=== PATIENT | male | born 1975 | race African-American/Black ===

== ENCOUNTER 2021-02-06 17:45 | Emergency (ER) | payer OTHER, SELFPAY ==
--- NOTE | ~2021-02-06 | CT_ITS ---
EXAMINATION: CT orbit BI wo con DATE: 02/06/2021 20:38 INDICATION: Right eye redness and burning TECHNIQUE: Computed tomography (CT) of the orbits was performed without intravenous contrast. The dos e-length product (DLP) was 115.76 mGy-cm. Automated exposure control and iterative reconstruction winifred hnique were employed. COMPARISON: None. FINDINGS: The globes and orbits are normal. No radiopaque foreign body is identified. No orbital frac ture identified. IMPRESSION: 1. No CT correlate for the patient's symptoms. Reviewed, dictated and finalized at location A.
[2021-02-06 17:49] VITALS: BP 161/118; PULSE 91; RESP 18; TEMP 36.9; O2SAT 100
--- NOTE | 2021-02-06 17:53 | PC.NURSE ---
Pt was placed on ofloxacin by urgent care
[2021-02-06] MEDS: TETRACAINE HCL 0.5% OPHTH SOLN 4 ML BTL 1 DROP (19:48)
[2021-02-06] MEDS: FLUORESCEIN SOD 1 MG/STRIP (19:48)
[2021-02-06] MEDS: DACRIOSE EYE IRRIGATION 118 ML BOTTLE (19:48)
--- NOTE | 2021-02-06 20:40 | ED.EYEPROB ---
HPI - Eye Problem General Chief complaint: Eye Problems Stated complaint: RT EYE PAINFUL, HENSON, DRAINAGE Time Seen by Provider: 02/06/21 19:06 History of Present Illness HPI Narrative: Patient presents with eye pain. Patient reports he was he constructing something with a sledgehammer when a piece of unknown substance broke off and struck him in his right eye. Been occurred approximately 1 week ago was seen in urgent care and exam as I was told everything was okay and discharged home on antibiotic eyedrops. Reports his eye continues to bother him and appears pleurisy letter to come back in for repeat evaluation. Reports his pain is constant, achy, worse with bright lights and with looking around. Denies fevers, cough, congestion, loss of visual malloy Related Data Allergies Allergy/AdvReac Type Severity Reaction Status Date / Time acetaminophen AdvReac Intermediate Other Verified 02/06/21 18:33 Review of Systems Review of Systems: CONSTITUTIONAL: Denies fever, chills, or sweats. EYES: Reports redness, clear drainage, blurred vision on the right ENT: Denies rhinorrhea, congestion, sore throat, or otalgia. CARDIOVASCULAR: Denies chest pain, palpitations, or edema. RESPIRATORY: Denies cough or dyspnea. GASTROINTESTINAL: Denies abdominal pain, nausea, vomiting, or diarrhea. GENITOURINARY: Denies dysuria or hematuria. SKIN: Denies rash or itching. MUSCULOSKELETAL: Denies back pain, joint pain, or myalgia. NEUROLOGIC: Denies headache, numbness, dizziness, or weakness. PSYCHIATRIC: Denies anxiety or depression. All systems reviewed & are unremarkable except as noted in HPI and below Exam Narrative: GENERAL: Well-appearing, well-nourished, and in no acute distress. HEAD: Normocephalic, atraumatic. EYES: PERRLA and EOMI without pain. diffuse conjunctival injection on the right anterior chamber is quiet mild direct photophobia no consensual photophobia. Mild tenderness palpation of the bony orbits no obvious deformity no open or draining wounds. Visual acuities reviewed in nursing chart. No fluorescein uptake no Janie's ENT: Nares clear, no rhinorrhea or epistaxis. Mucous membranes moist. NECK: Supple. No masses. No JVD CHEST: Clear to auscultation. No respiratory distress. No wheezes rales or rhonchi SKIN: Warm, dry, no rash. NEURO: No focal deficits. Alert and oriented x3. PSYCH: Normal mood and affect. Course Reevaluation(s) Reevaluation #1: Patient ports feeling improved results and plan reviewed with patient. Patient comfortable with outpatient plan. Date: 02/06/21 Time: 21:01 Vital Signs Vital signs: Vital Signs Temperature 36.9 C 02/06/21 17:49 Pulse Rate 91 02/06/21 17:49 Respiratory Rate 18 02/06/21 17:49 Blood Pressure 161/118 H 02/06/21 17:49 Pulse Oximetry 100 02/06/21 17:49 Temperature 36.9 C 02/06/21 17:49 Pulse Rate 91 02/06/21 17:49 Respiratory Rate 18 02/06/21 17:49 Blood Pressure 161/118 H 02/06/21 17:49 Pulse Oximetry 100 02/06/21 17:49 MDM - Eye Problem MDM Narrative Medical decision making narrative: H&P as above, vss, pt looks clinically well, exam diffuse conjunctival injection and clear drainage, mild improvement with Alcaine no fluorescein uptake, img unremarkable, additional labs/img considered, symptomatic relief available as needed, on reevaluation pt continues to looks clinically well. Patient may have a mild traumatic iritis however there is no consensual photophobia. Symptoms may represent healing abrasion as patient had some improvement with topical anesthetic. there is low concern for fracture, open globe, retrobulbar process. With negative work-up plan to tx/monitor as op w/ pcm/ophthalmology f/u findings/plan discussed with pt, pt agree/comfortable with plan, return precautions given Discharge Plan Discharge Clinical Impression: Acute eye pain Conjunctival injection Qualifiers: Laterality: right Qualified Code(s): H11.431 - Conjunctival hyperemi
--- NOTE | 2021-02-06 21:28 | PC.NURSE ---
rn went to discharge pt and noted a high blood pressure of 157/114. rn spoke with dr tejeda who gave a vrbo for clonidine 0.1mg and to hold pt and repeat bp in 30-45 min.
[2021-02-06] MEDS: cloNIDine HCL 0.1 MG TABLET PO (21:59)
[2021-02-06 22:00] VITALS: BP 161/121
[2021-02-06 22:48] VITALS: BP 140/70
[2021-02-06 22:49] VITALS: BP 140/70; PULSE 70; RESP 18; O2SAT 100
== END 2021-02-06 22:55 | disposition home or self-care (01) ==
PROVIDERS: Emergency Provider Emergency Medicine; PCP Internal Medicine
DX: H11.431 Conjunctival hyperemia, right eye (principal)
CPT/HCPCS: 70480; 99284; A9270

== ENCOUNTER 2021-03-24 10:15 | Emergency (ER) | payer OTHER, SELFPAY ==
[2021-03-24] VITALS (9 sets, daily range): BP systolic 140–147; BP diastolic 85–104; PULSE 93–111; RESP 18–22; TEMP 37.3–39.4; O2SAT 97–98
--- NOTE | ~2021-03-24 | XR_ITS ---
EXAMINATION: XR chest 1V portable INDICATION: Tachycardia and cough TECHNIQUE: Portable AP chest at 1326 hours COMPARISON: None available FINDINGS: There are patchy opacities of the lung bases, left greater than right. No pleural effusion or pneumothorax is identified. The cardiomediastinal silhouette is normal. IMPRESSION: 1. Patchy bibasilar airspace opacities, left greater than right, likely pneumonia. Reviewed, dictated and finalized at location A. CENTER SUPPORT REPRESENTATIVE IMPRESSION: 1. Patchy bibasilar airspace opacities, left greater than right, likely pneumon ia.
--- NOTE | 2021-03-24 12:04 | ED.GENADULT ---
HPI - General Adult General Chief complaint: Upper Respiratory Infection Stated complaint: chills, st Time Seen by Provider: 03/24/21 11:47 Source: patient Mode of arrival: ambulatory Limitations: no limitations History of Present Illness HPI narrative: Patient presents for evaluation of sore throat since yesterday. He indicates he woke from sleep with the symptoms. He states he slept with his windows open the night prior. He believes this was the cause of his symptoms. He has experienced fever and chills but denies any chest pain, shortness of breath, abdominal pain. He has an occasional productive cough of yellow sputum and some nausea particularly when he eats. He has tried cepacol without much improvement in his symptoms. No recent sick contacts. He does not smoke. He has not received a flu shot. He has also not received a Covid vaccine. No personal hx of COVID. No additional complaints or concerns. Related Data Allergies Allergy/AdvReac Type Severity Reaction Status Date / Time acetaminophen AdvReac Intermediate Other Verified 03/24/21 12:01 Review of Systems Review of Systems: CONSTITUTIONAL: Reports fever and chills EYES: Denies visual changes, redness, or discharge. ENT: Reports sore throat. Denies rhinorrhea, congestion, or otalgia. CARDIOVASCULAR: Denies chest pain, palpitations, or edema. RESPIRATORY: Denies cough or dyspnea. GASTROINTESTINAL: Denies abdominal pain, nausea, vomiting, or diarrhea. GENITOURINARY: Denies dysuria or hematuria. SKIN: Denies rash or itching. MUSCULOSKELETAL: Denies back pain, joint pain, or myalgia. NEUROLOGIC: Denies headache, numbness, dizziness, or weakness. PSYCHIATRIC: Denies anxiety or depression. FORMERLY [facility] Past Medical History Medical History (Updated 03/24/21 @ 16:01 by David Sauer, SIRISHA, ) No pertinent past medical history Surgical History Surgical History No pertinent past surgical history Family History Family History Mother Polysubstance abuse Social History Social History Smoking status: Never smoker Alcohol intake: never Substance use: never Living arrangements: with family Gender identity (if verbalized by the patient): Male Sexual Orientation (if Verbalized by the Patient): Straight or Heterosexual Spiritual care concerns: No Exam Narrative: GENERAL: Well-appearing, well-nourished, and in no acute distress. HEAD: Normocephalic, atraumatic. EYES: PERRLA and EOMI. ENT: Nares clear, no rhinorrhea or epistaxis. Mucous membranes moist. Bilateral tonsillar enlargement with erythema but no exudate. Uvula is midline. Bilateral TMs pearly rubio nonbulging NECK: Supple. No adenopathy or masses. No carotid bruits or JVD CHEST: Clear to auscultation. No respiratory distress. No wheezes rales or rhonchi HEART: Rate 105. Normal rhythm. No murmur heard. Normal peripheral pulses. ABDOMEN: Soft, nontender, nondistended, normal active bowel sounds. EXTREMITIES: Normal range of motion. No edema. SKIN: Warm, dry, no rash. NEURO: No focal deficits. Alert and oriented x3. PSYCH: Normal mood and affect. Course Course Emergency Course: This is a 45-year-old male who presented with complaints of sore throat and productive cough of yellow sputum. He has some tonsillar swelling and erythema. Strep was negative. CXR consistent with pneumonia versus atelectasis. Patient was hydrated. He was given ibuprofen for fever. Decadron was ordered to assist with sore throat. He was started on Rocephin and azithromycin. Heart rate normalized with hydration. O2 sats remained within normal range. This could be a bacterial pneumonia versus Covid. Covid swab was obtained. On reassessment, patient indicated that he felt well enough to go home. He should follow-up outpatient for further e
[2021-03-24] MEDS: IBUPROFEN 400 MG TABLET 800 MG PO (12:13)
--- NOTE | 2021-03-24 13:12 | ECG_ITS ---
Measurements Intervals [place] Rate: 90 P: 57 [place]: 155 QRS: 30 QRSD: 102 T: 6 QT: 373 QTc: 458 Interpretive Statements SINUS RHYTHM NORMAL ECG Electronically Signed On 03-24-2021 20:07:52 [employer] by Tarik Fuentes D.O.
[2021-03-24 13:49] LABS: Basophils Percent Auto 0.4 % (0.2-1.2); Eosinophils Absolute Auto 0.1 K/mm3 (0-0.3); Eosinophils Percent Auto 0.5 % (0-4.4); Hematocrit 42.8 % (42.0-52.0); Hemoglobin 14.5 g/dL (14.0-18.0); Immature Granulocyte Absolute 0.04 K/mm3 (0.00-0.031); Immature Granulocyte Percent A 0.4 % (0-0.5); Lymphocytes Absolute Auto 1.66 K/mm3 (0.9-3.2); Lymphocytes Percent Auto 17.1 % (18.3-44.2); Mean Corpuscular HGB Conc 33.9 g/dl (32-36); Mean Corpuscular Hemoglobin 29.5 pg (26-34); Mean Platelet Volume 9.6 fl (7.4-10.4); Monocytes Absolute Auto 0.8 K/mm3 (0.1-0.6); Monocytes Percent Auto 8.2 % (2.6-8.5); Neutrophils Absolute Auto 7.1 K/mm3 (1.3-6.7); Neutrophils Percent Auto 73.4 % (45.5-73.1); Platelet Count Result 234 k/mm3 (150-375); Red Blood Count 4.92 M/mm3 (4.6-6.20); Red Cell Distribution Width 13.3 % (11.5-14.5); White Blood Count 9.7 K/mm3 (4.5-10.0)
[2021-03-24 13:59] LABS: Lactic Acid Reflex 1.3 mmol/L (0.7-2.1)
[2021-03-24 14:00] LABS: Alanine Aminotransferase 29 U/L (4-50); Albumin Level 4.5 g/dL (3.5-5.1); Alkaline Phosphatase 76 U/L (38-126); Anion Gap 8 mmol/L (8-16); Aspartate Amino Transferase 29 U/L (17-59); Bilirubin,Total 0.5 mg/dL (0.2-1.3); Blood Urea Nitrogen 10 mg/dL (9-20); Calcium 9.2 mg/dL (8.4-10.2); Carbon Dioxide 26 mmol/L (22-30); Chloride 104 mmol/L (98-107); Estimated CRCL calculation 90 ml/min; Estimated Glomerular Filt Rate > 60; Glucose 123 mg/dL (65-110); Potassium 4.1 mmol/L (3.4-5.0); Sodium 138 mmol/L (137-145)
[2021-03-24 14:03] LABS: Prothrombin Time 13.4 Seconds (11.1-14.7)
[2021-03-24 14:04] LABS: Partial Thromboplastin Time 26.4 SECONDS (22.3-36.8)
[2021-03-24 14:06] LABS: D Dimer 0.33 ug/mL (<0.48)
[2021-03-24 14:11] LABS: Troponin I < 0.012 ng/mL (0.000-0.034)
[2021-03-24] MEDS: SODIUM CHLORIDE 0.9% IV 1,000 ML 999 ML IV CONT (14:42)
[2021-03-24 14:44] LABS: Add Urine Microscopic? YES; Appearance Urine Clear (Clear); Bilirubin Urine Negative (Negative); Blood Urine 1+ (Negative); Color Urine Yellow (Yellow); Glucose Urine UA Negative (Negative); Ketones Urine Negative (Negative); Leukocyte Esterase Ur Negative LEU/UL (Negative); Mucus Urine Rare /lpf; Nitrate Urine Negative (Negative); Protein Urine Negative (Negative); Specific Grav Ur 1.019 (1.001-1.035); Urobilinogen Urine Negative mg/dL (<2.0); WBC Urine 0-3 /hpf
[2021-03-24 16:46] LABS: Troponin I < 0.012 ng/mL (0.000-0.034)
[2021-03-25 18:23] LABS: SARS-CoV-2 RNA PCR Negative
--- NOTE | 2021-04-01 13:25 | PC.NURSE ---
LATE ENTRY This note is being entered to document information to the patient's record. The following information was omitted on [03/24/21], by [Dayana Lennon]. Azithromycin infused at 1625, 250ml.
== END 2021-03-24 16:30 | disposition home or self-care (01) ==
PROVIDERS: Emergency Provider Nurse Practitioner; PCP Internal Medicine
DX: J18.9 Pneumonia, unspecified organism (principal); Z20.822 Contact with and (suspected) exposure to COVID-19
CPT/HCPCS: 36415; 71045; 80053; 81001; 83605; 84484; 85025; 85380; 85610; 85730; 87081; 87804; 87880; 93005; 96360; 96365; 99284; A9270; C9803; J0456; J0696; J1100; J1170; J7030; U0003; U0005

== ENCOUNTER 2021-05-25 20:17 | Emergency (ER) | payer OTHER, SELFPAY ==
[2021-05-25 20:25] VITALS: BP 137/85; PULSE 94; RESP 16; TEMP 37.9; O2SAT 99
--- NOTE | 2021-05-25 22:51 | PC.NURSE ---
This RN went to waiting room to take new set of vital signs on pt and he was not in the waiting room at this time. Unsure if pt left or just stepped outside.
== END 2021-05-25 20:25 | disposition left against medical advice (07) ==
LOC: ANHED 23:07
PROVIDERS: PCP Internal Medicine
DX: R50.9 Fever, unspecified (principal)
CPT/HCPCS: 99199

== ENCOUNTER 2024-06-21 18:10 | Emergency (ER) | payer OTHER, SELFPAY ==
--- NOTE | ~2024-06-21 | XR_ITS ---
HISTORY: right shoulder pain COMPARISON: None TECHNIQUE: 4 views of the right shoulder were performed FINDINGS: No acute fracture. The glenohumeral and acromioclavicular joint space is maintained The visualized portion of the adjacent right lung is clear. The humeral head is well seated within the glenoid fossa. IMPRESSION: No acute fracture or anterior dislocation. Reviewed, dictated and finalized at location A. H PAINTER
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
[2024-06-21 18:21] VITALS: BP 114/87; PULSE 95; RESP 16; TEMP 37.7; O2SAT 99
[2024-06-21 18:47] LABS: EDCOVIDSCREEN Negative (Negative); EDINFLUASCREEN Negative (Negative); EDINFLUBSCREEN Negative (Negative)
== END 2024-06-21 19:01 | disposition home or self-care (01) ==
PROVIDERS: Emergency Provider Nurse Practitioner
DX: S43.401A Unspecified sprain of right shoulder joint, initial encounter (principal); W19.XXXA Unspecified fall, initial encounter; J01.90 Acute sinusitis, unspecified; Z20.822 Contact with and (suspected) exposure to COVID-19
CPT/HCPCS: 73030; 87426; 87804; 99213; A4565; G0463

== ENCOUNTER 2024-07-12 11:43 | Outpatient (CLI) | payer OTHER, SELFPAY ==
--- NOTE | ~2024-07-12 | XR_ITS ---
EXAMINATION: XR fl inj shoulder RT - MR/CT DATE: 07/12/2024 12:29 INDICATION: Unspecified injury of right shoulder. TECHNIQUE: A time-out was performed to verify the patient's name, date of , and procedure to b e performed. The procedure including the risks, benefits, and alternatives was discussed with the pat ient. Risks discussed included bleeding and infection. The patient understood the risks and agreed to proceed. The skin overlying the right glenohumeral joint was prepped and draped in usual sterile fas hion. Anesthetic was administered with 1% lidocaine subcutaneously. A 22 G needle was advanced unde r fluoroscopic guidance into the joint. Subsequently, injectate consisting of 12 mL of 1:4 1% lidoca ine and 1:2 Omnipaque 240 was instilled. The needle was removed and the entry site was cleaned and d ressed. There were no immediate complications. Fluoroscopy exposure time was 0.1 minutes. The total number of images was 2. FINDINGS: Real-time fluoroscopy demonstrates the needle and contrast in the right glenohumeral joint. IMPRESSION: 1. Successful right glenohumeral joint injection of contrast for subsequent CT arthrography. Reviewed, dictated and finalized at location A. ITUTIONAL NUTRITION CONSULTANT
--- NOTE | ~2024-07-12 | CT_ITS ---
EXAMINATION: CT shoulder RT w con DATE: 07/12/2024 12:27 INDICATION: Unspecified injury of right shoulder. TECHNIQUE: Computed tomography (CT) of the right shoulder was performed without intravenous contrast after intra-articular injection of contrast from (CT arthrogram). Automated exposure control and iter ative reconstruction technique were employed. The dose-length product was 446.09 mGy-cm. COMPARISON: Right shoulder radiographs 06/21/2024 FINDINGS: Alignment is normal. No fracture. There is severe acromioclavicular joint osteoarthritis. T he glenoid cartilage is normal. Humeral head cartilage is normal. Intra-articular biceps tendon is un remarkable. The glenoid labrum is intact. There is a large full-thickness tear of subscapularis tendo n with large communication of contrast between the joint and the subacromial/subdeltoid bursa. The roth praspinatus, infraspinatus, and teres minor tendons are intact. There is no asymmetric fatty atrophy of the rotator cuff muscle bellies. IMPRESSION: 1. Large full-thickness tear of subscapularis tendon. 2. Severe acromioclavicular joint osteoarthritis. Reviewed, dictated and finalized at location A. [facility] REFEREE
--- OUTSIDE RECORDS SUMMARY | 2024-07-12 13:39 | XMS_ITS | Referral Summary ---
Author Organization [facility] Address [address] [place] [address] Care Team Providers Care Director Of Vital Statistics Name Role Phone Unknown, Provider Primary Care Provider Unavaila ble Source Comments [facility],non-owned Affiliates and Associated Physician Practices is amultiple site organization consisting of ambulatory clinics and hospital sitesin [place], [place], [place] and [place]. This disclosure is being madepursuant to the Care Everywhere program and may not contain all information available regarding this patient. Last updated 18.[facility] Encounters Date Type Department Care Team Description 05/31/2024 Travel 05/31/2024 3:54 PM DISTILLATION OPERATOR HELPER - 05/31/2024 7:23 PM [facility] Emergency [facility] [address] [place] [id number] Discharge Disposition: Left Against Medical Advice/Discontinued Care from Last 3 Months Allergies Active Allergy Reactions Criticality Noted Date Comments Acetaminophen Rash Medium Propoxyphene N-Apap Other Low 01/28/2017 Face shrinking Shellfish Allergy Nausea and/or Vomiting Low 2016 Medications * Be aware that medications may not be up to date on this document. Alwaysverify current medications with the patient. Medication Sig Dispensed Refills Start Date End Date Status cetirizine (ZYRTEC ALLERGY) 10 MG tabletIndications:Pru ritus of groin in male Take 10-20 mg twice per day. 30 day supply 60 tablet 2 03/02/2018 Active tacrolimus (PROTOPIC) 0.1 % ointmentIndications:P ruritus of groin in male Apply to itchy areas of the groin BID. 30 days supply 60 g 3 03/02/2018 Active triamcinolone acetonide (KENALOG) 0.1 % ointmentIndications:P ruritus of groin in male Apply to itchy groin twice daily. 30 days supply. 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 Social History Tobacco Use Types Packs/Day Years Used Date Smoking Tobacco: Former Smokeless Tobacco: Never Alcohol Use Standard Drinks/Week Comments No 0 (1 standard drink = 0.6 oz pur e alcohol) Sex and Gender Information Value Date Recorded Sex Assigned at Not on file Gender Identity Not on file Sexual Orientation Not on file Last Filed Vital Signs Vital Sign Reading Time Taken Comments Blood Pressure 115/86 05/31/2024 12:03 PM DISTILLATION OPERATOR HELPER Pulse 110 05/31/2024 12:03 PM DISTILLATION OPERATOR HELPER Temperature 37.6 C (99.6 F) 05/31/2024 12:03 PM DISTILLATION OPERATOR HELPER Respiratory Rate 19 05/31/2024 12:03 PM DISTILLATION OPERATOR HELPER Oxygen Saturation 99% 05/31/2024 12:03 PM DISTILLATION OPERATOR HELPER Inhaled Oxygen Concentration - - Weight 56.7 kg (125 lb) 05/31/2024 12:03 PM DISTILLATION OPERATOR HELPER Height 180.3 cm (5' 11) 05/31/2024 12:03 PM DISTILLATION OPERATOR HELPER Body Mass Index 17.43 05/31/2024 12:03 PM DISTILLATION OPERATOR HELPER Plan of Treatment Not on file Procedures Procedure Name Priority Date/Time Associated Diagnosis Comments CULTURE STREP GROUP A Routine 05/31/2024 12:46 PM DISTILLATION OPERATOR HELPER STREP A SCREEN DIRECT W RFLX STREP A CULTURE STAT 05/31/2024 12:46 PM DISTILLATION OPERATOR HELPER SARS-COV-2 (COVID-19) FLU A/B RSV PCR RAPID STAT 05/31/2024 12:46 PM DISTILLATION OPERATOR HELPER from Last 3 Months Results * SARS-COV-2 (COVID-19) FLU A/B RSV PCR RAPID (05/31/2024 12:46 PM DISTILLATION OPERATOR HELPER) COVID-19 PCR Not detected Not detected 05/31/19 25 1:28 PM DISTILLATION OPERATOR HELPER [facility] Influenza A PCR Not detected Not detected 05/31/2024 1:28 PM [facility] Influenza B PCR Not detected Not detected 05/31/2024 1:28 PM [facility] RSV PCR Not detected Not detected 05/31/2024 1:28 PM [facility] Microbiology SPECIMEN FROM NASOPHARYNGEAL STRUCTURE / Unknown Collection / Unknown 05/31/2024 12:46 PM DISTILLATION OPERATOR HELPER 05/31/2024 12:49 PM DISTILLATION OPERATOR HELPER [facility] - 05/31/2024 1:28 PM DISTILLATION OPERATOR HELPER This nucleic acid amplification assay has been authorized by the Food and Drug administration (FDA) under an Emergency Use Authorization (EUA). This test is only authorized for the duration of time the declaration that circumstances exist justifying the authorization of emergency use of in vitro diagnostic tests for detection of SARS-CoV-2 virus and/or diagnosis of COVID-19 infection under section 564(b)(1) of the Act, 21 U.S.C 360bbb-3 (b)(1), unless the authorization is terminated or revoked sooner. Fact Sheets for this EUA assay are available upon request. Yelitza [employer]OVER[employer] ORDERABLES [address] [address], [facility] [phone] * STREP A SCREEN DIRECT W RFLX STREP A CULTURE (05/31/2024 12:46 PM DISTILLATION OPERATOR HELPER) [facility] Rapid Strep A Screen Negative Negative 05/31/2024 1:01 PM [facility] Microbiology ENTIRE THROAT (SURFACE REGION OF NECK) / Unknown Collection / Unknown 05/31/2024 12:46 PM DISTILLATION OPERATOR HELPER 05/31/2024 12:49 PM DISTILLATION OPERATOR HELPER [facility] - 05/31/2024 1:01 PM DISTILLATION OPERATOR HELPER Rapid test for Group A Beta Streptococcus is NEGATIVE. A Negative, Direct Test for Group A Streptococcus will be followed with a confirmatory Throat Culture when 2 swabs have been submitted. Yelitza GOMEZ-C LAB - MICROBI OLOGY ORDERABLES [facility] [address] [place] [address], [facility] [phone] * CULTURE STREP GROUP A (05/31/2024 12:46 PM DISTILLATION OPERATOR HELPER) Culture Negative for beta-hemolytic Streptococcus Group A AFSHAN 2024 5:25 PM DISTILLATION OPERATOR HELPER [facility] Microbiology ENTIRE THROAT (SURFACE REGION OF NECK) / Unknown Collection / Unknown 05/31/2024 12:46 PM DISTILLATION OPERATOR HELPER 05/31/2024 12:49 PM DISTILLATION OPERATOR HELPER Yelitza Stroud PA-C LAB - MICROBI OLOGY ORDERABLES [facility] [address] [place] [address], [facility] [phone] from Last 3 Months Care Teams Director Of Vital Statistics Relationship Specialty Start Date End Date Unknown, Provider PCP - General 11/04/17
--- OUTSIDE RECORDS SUMMARY | 2024-07-12 13:39 | XMS_ITS | Clinical Summary ---
Author Organization [facility] Address [address] [place] [address] Care Team Providers Care Loading And Unloading Supervisor Name Role Phone Unknown, Provider Primary Care Provider Unavaila ble Source Comments [facility],non-owned Affiliates and Associated Physician Practices is amultiple site organization consisting of ambulatory clinics and hospital sitesin [place], [place], [place] and [place]. This disclosure is being madepursuant to the Care Everywhere program and may not contain all information available regarding this patient. 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 Encounters Date Type Department Care Team Description 05/31/2024 3:54 PM FAMILY NURSE PRACTITIONER - 05/31/2024 7:23 PM FAMILY NURSE PRACTITIONER Emergency [facility] EMERGENCY DEPART[facility] [address] [place] [address] Discharge Disposition: Left Against Medical Advice/Discontinued Care 05/31/2024 Travel from Last 3 Months Family History Medical History Relation Name Comments Asthma Neg Hx CVA Neg Hx Cancer - Breast Neg Hx Cancer - Other Neg Hx Cancer - Skin, Melanoma Neg Hx Cancer - Skin, Non Melanoma Neg Hx Eczema Neg Hx Hemophilia Neg Hx Psoriasis Neg Hx Social History Tobacco Use Types Packs/Day Years [...] Comments Blood Pressure 115/86 05/31/2024 12:03 PM FAMILY NURSE PRACTITIONER Pulse 110 05/31/2024 12:03 PM FAMILY NURSE PRACTITIONER Temperature 37.6 C (99.6 F) 05/31/2024 12:03 PM FAMILY NURSE PRACTITIONER Respiratory Rate 19 05/31/2024 12:03 PM FAMILY NURSE PRACTITIONER Oxygen Saturation 99% 05/31/2024 12:03 PM FAMILY NURSE PRACTITIONER Inhaled Oxygen Concentration - - Weight 56.7 kg (125 lb) 05/31/2024 12:03 PM FAMILY NURSE PRACTITIONER Height 180.3 cm (5' 11) 05/31/2024 12:03 PM FAMILY NURSE PRACTITIONER Body Mass Index 17.43 05/31/2024 12:03 PM FAMILY NURSE PRACTITIONER Plan of Treatment Health Maintenance Due Date Last Done Comments COLON MONITORING 1975 COLONOSCOPY - COLON CA SCREENING 1975 CT COLONOGRAPHY - COLON CA SCREENING 1975 FIT - COLON CA SCREENING 1975 FLEX SIG - COLON CA SCREENING 1975 LIPID TESTING 1975 HIV SCREENING 1990 HEPATITIS C SCREENING 05/27/1993 DTAP/TDAP/TD VACCINES (1 - Tdap) 1994 HEPATITIS B VACCINE (1 of 3 - 19+ 3-dose series) 1994 COVID-19 VACCINE (2023-2 5 season) 2024 INFLUENZA VACCINE (#1) 2024 DEPRESSION SCREENING 05/11/2024 ZOSTER VACCINE (1 of 2) 2025 COLOGUARD (AGES 45-75) - COL ON CA SCREENING 12/15/2025 12/15/2022 Colorectal Cancer Screening 12/15/2025 HIB VACCINE Aged Out No longer eligi ble based on patient's age to complete this topic HPV VACCINE Aged Out No longer eligi ble based on patient's age to complete this topic MENINGOCOCCAL (Group B) VACCINE Aged Out No longer eligible based on patient's age to complete this topic MENINGOCOCCAL VACCINE Aged Out No roseann lucy eligible based on patient's age to complete this topic Procedures Procedure Name Priority Date/Time Associated Diagnosis Comments CULTURE STREP GROUP A Routine 05/31/2024 12:46 PM FAMILY NURSE PRACTITIONER STREP A SCREEN DIRECT W RFLX STREP A CULTURE STAT 05/31/2024 12:46 PM FAMILY NURSE PRACTITIONER SARS-COV-2 (COVID-19) FLU A/B RSV PCR RAPID STAT 05/31/2024 12:46 PM FAMILY NURSE PRACTITIONER from Last 3 Months Results * SARS-COV-2 (COVID-19) FLU A/B RSV PCR RAPID (05/31/2024 12:46 PM FAMILY NURSE PRACTITIONER) COVID-19 PCR Not detected Not detected 05/31/19 25 1:28 PM [facility] Influenza A PCR Not detected Not detected 05/31/2024 1:28 PM [facility] Influenza B PCR Not detected Not detected 05/31/2024 1:28 PM [facility] RSV PCR Not detected Not detected 05/31/2024 1:28 PM [facility] Microbiology SPECIMEN FROM NASOPHARYNGEAL STRUCTURE / Unknown Collection / Unknown 05/31/2024 12:46 PM FAMILY NURSE PRACTITIONER 05/31/2024 12:49 PM FAMILY NURSE PRACTITIONER [facility] - 05/31/2024 1:28 PM FAMILY NURSE PRACTITIONER This nucleic acid amplification assay has been [...] EUA assay are available upon request. Yelitza Alexander [employer] LAB - MoglueY ORDERABLES Performing Organization Address City/[facility]/ZIP Co de Phone Number [address] [address], [facility] [phone] * STREP A SCREEN DIRECT W RFLX STREP A CULTURE (05/31/2024 12:46 PM FAMILY NURSE PRACTITIONER) Rapid Strep A Screen Negative Negative 05/31/2024 1:01 PM FAMILY NURSE PRACTITIONER [facility] Microbiology ENTIRE THROAT (SURFACE REGION OF NECK) / Unknown Collection / Unknown 05/31/2024 12:46 PM FAMILY NURSE PRACTITIONER 05/31/2024 12:49 PM FAMILY NURSE PRACTITIONER Narrative [facility] - 05/31/2024 1:01 PM FAMILY NURSE PRACTITIONER Rapid test for Group A Beta Streptococcus is NEGATIVE. A Negative, Direct Test for Group A Streptococcus will be followed with a confirmatory Throat Culture when 2 swabs have been submitted. [employer]el[employer]zaLivestreamCatherinei[email or web address] ORDERABLES Performing Organization Address [facility] Co de Phone Number [address] [address], [facility] [phone] * CULTURE STREP GROUP A (05/31/2024 12:46 PM FAMILY NURSE PRACTITIONER) Culture Negative for beta-hemolytic Streptococcus Group A AFSHAN 2024 5:25 PM FAMILY NURSE PRACTITIONER [facility] Microbiology ENTIRE THROAT (SURFACE REGION OF NECK) / Unknown Collection / Unknown 05/31/2024 12:46 PM FAMILY NURSE PRACTITIONER 05/31/2024 12:49 PM FAMILY NURSE PRACTITIONER Yelitza [employer] LAB - MICROBI OLOGY ORDERABLES [facility] [address] [place] [address], [facility] [phone] from Last 3 Months Care Teams Loading And Unloading Supervisor Relationship Specialty Start Date End Date Unknown, Provider PCP - General 11/04/17
--- OUTSIDE RECORDS SUMMARY | 2024-07-12 13:39 | XMS_ITS | Patient Health Summary ---
Author Organization [facility] Address [address] [place] [address] Care Team Providers Care Beach Expert Name Role Phone Unknown, Provider Primary Care Provider Unavaila ble Note from [facility],non-owned Affiliates and Associated Physician Practices is amultiple site organization consisting of ambulatory clinics and hospital sitesin [place], [place], [place] and [place]. This disclosure is being madepursuant to the Care Everywhere program and may not contain all information available regarding this patient. Last updated 18.[facility] Allergies * Acetaminophen(Rash) -Medium Criticality * Propoxyphene N-Apap(Other) -Low Criticality * Shellfish Allergy(Nausea and/or Vomiting) -Low Criticality Medications * Be aware that medications may not be up to date on this document. Alwaysverify current medications with the patient. * cetirizine (ZYRTEC ALLERGY) 10 MG tablet(Started 03/02/2018) Take 10-20 mg twice per day. 30 day supply 2 refills remaining * tacrolimus (PROTOPIC) 0.1 % ointment(Started 03/02/2018) Apply to itchy areas of the groin BID. 30 days supply 3 refills remaining * triamcinolone acetonide (KENALOG) 0.1 % ointment(Started 03/02/2018) Apply to itchy groin twice daily. 30 days supply. Active Problems Problem Noted Date Diagnosed Date [...] Comments Blood Pressure 115/86 05/31/2024 12:03 PM MANAGER METAL Pulse 110 05/31/2024 12:03 PM MANAGER METAL Temperature 37.6 C (99.6 F) 05/31/2024 12:03 PM MANAGER METAL Respiratory Rate 19 05/31/2024 12:03 PM MANAGER METAL Oxygen Saturation 99% 05/31/2024 12:03 PM MANAGER METAL Inhaled Oxygen Concentration - - Weight 56.7 kg (125 lb) 05/31/2024 12:03 PM MANAGER METAL Height 180.3 cm (5' 11) 05/31/2024 12:03 PM MANAGER METAL Body Mass Index 17.43 05/31/2024 12:03 PM MANAGER METAL Procedures * CULTURE STREP GROUP A(Performed 05/31/2024) * STREP A SCREEN DIRECT W RFLX STREP A CULTURE(Performed 05/31/2024) * SARS-COV-2 (COVID-19) FLU A/B RSV PCR RAPID(Performed 05/31/2024) Results * SARS-COV-2 (COVID-19) FLU A/B RSV PCR RAPID (05/31/2024 12:46 PM MANAGER METAL) COVID-19 PCR Not detected Not detected 05/31/19 1:28 PM [facility] Influenza A PCR Not detected Not detected 05/31/2024 1:28 PM [facility] Influenza B PCR Not detected Not detected 05/31/2024 1:28 PM [facility] RSV PCR Not detected Not detected 05/31/2024 1:28 PM [facility] Microbiology SPECIMEN FROM NASOPHARYNGEAL STRUCTURE / Unknown Collection / Unknown 05/31/2024 12:46 PM MANAGER METAL 05/31/2024 12:49 PM MANAGER METAL Narrative [facility] - 05/31/2024 1:28 PM MANAGER METAL This nucleic acid amplification assay has been [...] EUA assay are available upon request. Yelitza Stroud [employer] ORDERABLES Performing Organization Address [facility]/ZIP Co de Phone Number [address] [address], [facility] [phone] * STREP A SCREEN DIRECT W RFLX STREP A CULTURE (05/31/2024 12:46 PM MANAGER METAL) Rapid Strep A Screen Negative Negative 05/31/2024 1:01 PM MANAGER METAL [facility] Microbiology ENTIRE THROAT (SURFACE REGION OF NECK) / Unknown Collection / Unknown 05/31/2024 12:46 PM MANAGER METAL 05/31/2024 12:49 PM MANAGER METAL Narrative [facility] - 05/31/2024 1:01 PM MANAGER METAL Rapid test for Group A Beta Streptococcus is NEGATIVE. A Negative, Direct Test for Group A Streptococcus will be followed with a confirmatory Throat Culture when 2 swabs have been submitted. Yelitza VillalobosEyeEm [employer] [facility] [employer] ORDERABLES Performing Organization Address [facility] Co de Phone Number [address] [phone], [facility] [phone] * CULTURE STREP GROUP A (05/31/2024 12:46 PM MANAGER METAL) Culture Negative for beta-hemolytic Streptococcus Group A AFSHAN 2024 5:25 PM MANAGER METAL [facility] Microbiology ENTIRE THROAT (SURFACE REGION OF NECK) / Unknown Collection / Unknown 05/31/2024 12:46 PM MANAGER METAL 05/31/2024 12:49 PM MANAGER METAL Yelitza Alexander [facility] MICROBI OLOGY ORDERABLES [facility] [address] [place] [address], [facility] [phone] Care Teams Beach Expert Relationship Specialty Start Date End Date Unknown, Provider PCP - General 11/04/17
--- OUTSIDE RECORDS SUMMARY | 2024-07-12 13:39 | XMS_ITS | Data Portability ---
Author Organization SHARI STEVENCarley Boswell Address [address] [place] [address] Assessment No assessment recorded. Plan of Treatment Reminders Order Date Submit Date Provider Last Modified By Organization Details Last Modified Time Details Appointments None recorded. Lab creatinine, serum or plasma 2023 024 [facility], [address], [address], [place], [address], 4 06:21:03 urinalysis, dipstick 2023 024 [facility], [address], [address], [place], [address], 4 06:21:05 PSA, total, serum or plasma 2023 024 [facility], [address], [address], [place], [address], 4 09:19:10 urinalysis, dipstick 2023 024 [facility], [address], [address], [place], [address], 4 13:11:13 CBC w/ auto diff 2023 024 [facility], [address], [address], [place], [address], 4 13:11:14 CMP, serum or plasma 2023 024 [facility], [address], [address], [place], [address], 4 13:11:12 lipid panel, serum 2023 024 [facility], [address], [address], [place], [address], 4 13:11:10 HbA1c (hemoglobin A1c), blood 2023 024 [facility], [address], [address], [place], [address], 4 09:19:09 albumin/cre atinine, mass ratio, urine 2023 024 [facility], [address], [address], [place], [address], 4 09:19:08 HbA1c (hemoglobin A1c), blood 2022 023 [facility] In-Office Order, Internal Use Only DO Not Attach Compendium DO Not Attach Compendium, Do Not Delete/merge, [id number] 3 12:25:03 glucose, fingerstick , blood 2022 023 [facility] In-Office Order, Internal Use Only DO Not Attach Compendium DO Not Attach Compendium, Do Not Delete/merge, [id number] 3 12:25:03 CMP, serum or plasma 2022 023 [facility], [address], [address], [place], [address], 3 12:48:38 HbA1c (hemoglobin A1c), blood 2022 023 [facility], [address], [address], [place], [address], 4 09:37:12 microalbumi n/creatinin e, mass ratio, urine 2022 023 [facility], [address], [address], [place], [address], 4 09:37:17 noninvasive colorectal cancer DNA + occult blood screening, QL, stool 2022 023 [facility] [employer] [facility] [employer] (Cologuard Orders Only), [address], [address], [place], [address], 3 09:42:03 Referral diabetic ophthalmolo gy referral - HBA1C 5.9% 2023 024 [facility], [address], [place], [address], 4 14:49:43 cardiologis t referral - Please call patient for appointment , thanks! 2023 024 [facility], [address], [address], [place], [address], 5 10:22:10 diabetic ophthalmolo gy referral - Please call patient for appointment , thanks! 2022 024 [facility], [address], [place], [address], 4 15:09:06 Procedures None recorded. Surgeries None recorded. Imaging US, kidney - DM, elevated Creatinine 2023 024 [facility] (One Call Scheduling), [address], [place], [address], 4 12:52:30 Medication Orders rosuvastati n 20 mg tablet 2023 024 [facility] #[id number], [address], [place], [place], [id number], 4 16:17:15 aspirin 81 mg tablet,raman yed release 2023 024 [facility] #[id number], [address], [place], [place], [id number], 4 10:37:18 Blood Glucose Test strips 2023 024 [facility] #[id number], [address], [place], [place], [id number], 4 10:37:18 Blood Glucose Test strips 2023 024 [facility] #81048, [address], [place], [place], [id number], 4 12:27:29 Blood Glucose Test strips 2022 023 [facility] #44102, [address], [place], [place], [id number], 3 18:29:45 alcohol swabs 2022 023 [facility] #35989, [address], [place], [place], [id number], 3 12:26:24 Blood Glucose Test strips 2022 023 [facility] #12155, [address], [place], [place], [id number], 3 13:33:11 Patient TargetsNo targets recorded. Patient Instructions Encounter Date Encounter Id Patient Instructions Last Modified By Organization Details Last Modified Time 11/28/2022 [id number] learning about t ype 2 diabetes [facility] Not available 11/28/2022 12:48:34 type 2 diabetes: care instructions [facility] Not available 11/28/2022 12:48:34 09/24/2023 [id number] A healthy lifestyle: care instructions oa[facility] Not available 09/24/2023 10:37:18 type 2 diabetes: care instructions oavad[facility] Not available 09/24/2023 10:37:17 Labs Start Aspir in Add on a statin after his labs are reviewed Ophthalmology as referred Cardiology as ordered Follow up in 5 months [facility] Not available 09/24/2023 10:21:38 Detailed discuss ion about his DM which is now well controlled oaelyo Not available 09/24/2023 10:17:20 11/23/2023 [id number] Renal US Start Rosuvastatin Monitor your blood pressure Low CHO, low saturated fat diet Low salt diet Labs Note from the Hoisting Engineer Follow up in 4 weeks oavadim Not available 11/23/2023 16:21:15 Reason for Referral Diabetic Ophthalmology Refer ral for Prediabetes Please call patient for appointment, thanks! Referring Physician: Abraham Estrada, Internal Medicine, Encounter Date: 02/09/2023 [facility] Referral for Fl uttering heart Please call patient for appointment, thanks! Referring Physician: Abraham Estrada, Internal Medicine, Encounter Date: 06/15/2023 Diabetic Ophthalmology Refer ral for Type 2 diabetes mellitus without complication HBA1C 5.9% Referring Physician: Catrachito Jon, Internal Medicine, Encounter Date: 11/23/2023 Results Created Date Observation Date Name Description Value Unit Range Abnormal Flag Note LastModifiedBy Organization Detail LastModifiedTime 12/16/19 23 12/15/2022 COLOG UARD cologuard result reportable Negati ve negati ve NEGAT KASSANDRA TEST RESUL T. A negat kassandra Colog uard resul t indic ates a low likel ihood that a color ectal cance r (CRC) or advan rosalina adeno ma (ian omato us polyp s with more advan rosalina pre-m align ant featu res) is prese nt. The chanc e that a perso n with a negat kassandra Colog uard test has a color ectal cance r is less than 1 in 1500 (nega tive predi ctive value >99.9 %) or has an advan rosalina adeno ma is less than 5.3% (nega tive predi ctive value 94.7% ). These data are based on a prosp ectiv e cross -sect ional study of 10,00 0 indiv idual s at [place] [facility] risk for color ectal cance r who were scree jhony with both Colog uard and colon oscop y. (Kd Encarnacion et al, N Engl J Med 2014; 370(1 4):12 86-12 97) The kathia l value (refe rence range ) for this assay is negat kassandra. COLOG UARD RE-SC REENI NG RECOM MENDA TION: Perio dic color ectal cance r scree jeanette is an impor tant part of preve ntive healt hcare for asymp tomat ic indiv idual s at [place] [facility] risk for color ectal cance r. Follo wing a negat kassandra Colog uard resul t, the Ameri can Cance r Socie ty and U.S. Multi -Soci ety Task Force scree jeanette guide lines recom mend a Colog uard re-sc reeni ng inter ang of 3 years . Refer ences : Ameri can Cance r Socie ty Guide line for Color ectal Cance r Scree jeanette: https ://raisa w.can cer.o rg/ca ncer/ colon -rect al-ca ncer/ detec tion- diagn osis- stagi ng/ac s-rec ommen datio ns.ht ml.; Garth TREVIÑO, Yazan samayoa CR, Orville SavageK, Color ectal Cance r Scree jeanette: Recom menda tions for Physi cians and Patie nts from the U.S. Multi -Soci ety Task Force on Color ectal Cance r Scree jeanette , Am J Gastr oente rolog y 2017; 112:1 016-1 030. TEST DESCR IPTIO N: [place] site algor ithmi c emi sis of stool DNA-b iomar kers with hemog lobin immun oassa y. Quant itati ve value s of indiv idual bioma rkers are not repor table and are not assoc iated with indiv idual bioma rker resul t refer ence range s. Colog uard is inten ded for color ectal cance r scree jeanette of adult s of eithe r sex, 45 years or older , who are at [facility] for color ectal cance r (CRC) . Colog uard has been appro stephanei for use by the U.S. FDA. The perfo rmanc e of Colog uard was estab lishe d in a cross secti onal study of [facility] adult s aged 50-84 . Colog uard perfo rmanc e in patie nts ages 45 to 49 years was estim ated by sub-g roup emi sis of near- age group s. Colon oscop ies perfo rmed for a posit kassandra resul t may find as the most clini otto signi camron t shanelle n: color ectal cance r [4.0% ], advan rosalina adeno ma (incl uding sessi le oliver gerald polyp s great er than or equal to 1cm diame ter) [20%] or non- advan rosalian adeno ma [31%] ; or no color ectal neopl hong [45%] . These estim ates are deriv ed from a prosp ectiv e cross -sect ional scree jeanette study of 0 indiv idual s at [facility] risk for color ectal cance r who were scree jhony with both Colog uard and colon oscop y. (Kd Noriega al, N Engl J Med 2014; 370(1 4):12 86-12 97.) Colog uard may produ ce a false negat kassandra or false posit kassandra resul t (no color ectal cance r or preca ncero us polyp prese nt at colon oscop y follo w up). A negat kassandra Colog uard test resul t does not guara ntee the absen ce of CRC or advan rosalina adeno ma (pre- cance r). The curre nt Colog uard scree jeanette inter ang is every 3 years . (Amer ican Cance r Socie ty and U.S. Multi -Soci ety Task Force ). Colog uard perfo rmanc e data in a 0 patie nt pivot al study using colon oscop y as the refer ence metho d can be acces sed at the follo wing locat ion: www.e xactl abs.c om/re sults . Addit ional descr iptio n of the Colog uard test proce ss, warni ngs and preca ution s can be found at www.c lucrecia diaz.c om. Not Available [facility] (Cologuard Orders Only) [address], [place], [address], 12/21/2022 09:42:03 02/10/20 23 02/09/2023 gluco se, finge rstic k, blood Blood Glucose: mg/dl 103 Not Available In-Off ice Order Internal Use Only DO Not Attach Compendium DO Not Attach Compendium, Do Not Delete/merge, [id number] 02/09/2023 12:22:03 02/10/20 23 02/09/2023 HbA1c (hemo globi n A1c), blood HbA1c 5.3 % Not Available In-Office Order Internal Use Only DO Not Attach Compendium DO Not Attach Compendium, Do Not Delete/merge, [id number] 02/09/2023 12:21:45 06/12/19 24 06/12/2023 HEMOG LOBIN A1C hemoglobin A1C 5.9 % 4.8-5. 6 above high normal Predi abete s: 5.7 - 6.4 Diabe bella: >6.4 Glyce alonso contr ol for adult s with diabe bella: <7.0 Not Available [facility] [address] [place], [address], 06/13/2023 06:26:28 06/12/19 24 06/13/2023 DIABE BELLA PATIE NT EDUCA TION pdf . Not Available [facility] [address] [place], [address], 06/13/2023 06:26:27 10/15/19 24 10/16/2023 ALBUM IN/CR EATIN INE RATIO ,URIN E creatinine, urine 84.0 mg/dL notest ab. Not Available [facility] ([facility]) [address] [place], [address], 10/16/2023 09:19:08 10/15/1910/16/2023 ALBUM IN/CR EATIN INE RATIO ,URIN E albumin, urine 3.8 ug/mL notest ab. Not Available [facility] ([facility]) [address] [place], [address], 10/16/2023 09:19:08 10/15/1910/16/2023 ALBUM IN/CR EATIN INE RATIO ,URIN E alb/creat ratio 5 mg/g_ creat 0-29 Kathia l: 0 - 29 Moder ately incre ased: 30 - 300 Sever arturo incre ased: >300 Not Available [facility] ([facility]) [address] [place], [address], 10/16/2023 09:19:08 10/15/1910/16/2023 HEMOG LOBIN A1C hemoglobin A1C 5.8 % 4.8-5. 6 above high normal Predi abete s: 5.7 - 6.4 Diabe bella: >6.4 Glyce alonso contr ol for adult s with diabe bella: <7.0 Not Available [facility] ([facility]) [address] [place], [address], 10/16/2023 09:19:09 10/15/1910/16/2023 PROST ATE-S PECIF IC AG prostate specific Ag 0.3 NG/mL 0.0-4. 0 Gerhard ECLIA metho dolog y. Accor ding to the Ameri can Urolo gical Assoc iatio n, Serum PSA shoul d decre ase and remai n at undet ectab le level s after radic al prost atect manjula. The AUA defin es bioch emica l recur rence as an initi al PSA value 0.2 ng/mL or great er follo wed by a subse quent confi rmato ry PSA value 0.2 ng/mL or great er. Value s obtai jhony with diffe rent assay metho ds or kits canno t be used inter [facility] step[facility] . Resul ts canno t be inter prete d as absol [place] evide nce of the prese nce or absen ce of daniel an[place] . Not Available [facility] ([facility]) [address] [place], [address], 10/16/2023 09:19:10 10/15/19 24 10/16/2023 LIPID PANEL cholesterol, total 205 mg/dL 100-19 9 above high normal Not Available [facility] ([facility]) [address] [place], [address], 10/16/2023 13:11:10 10/15/19 24 10/16/2023 LIPID PANEL triglyceride s 52 mg/dL 0-149 Not Available [facility] ([facility]) [address] [place], [address], 10/16/2023 13:11:10 10/15/19 24 10/16/2023 LIPID PANEL HDL cholesterol 66 mg/dL >39 Not Available [facility] ([facility]) [address] [place], [address], 10/16/2023 13:11:10 10/15/19 24 10/16/2023 LIPID PANEL VLDL cholesterol dipti 9 mg/dL 5-40 Not Available [facility] ([facility]) [address] [place], [address], 10/16/2023 13:11:10 10/15/19 24 10/16/2023 LIPID PANEL LDL chol calc ([facility]) 130 mg/dL 0-99 above high normal Not Available [facility] ([facility]) [address] [place], [address], 10/16/2023 13:11:10 10/15/19 24 10/16/2023 COMP. METAB OLIC PANEL (14) glucose 107 mg/dL 70-99 above high normal Not Available [facility] ([facility]) [address] [place], [address], 10/16/2023 13:11:11 10/15/19 24 10/16/2023 COMP. METAB OLIC PANEL (14) BUN 23 mg/dL 6-24 Not Available [facility] ([facility]) [address] [place], [address], 10/16/2023 13:11:11 10/15/19 24 10/16/2023 COMP. METAB OLIC PANEL (14) creatinine 1.33 mg/dL 0.76-1 .27 above high normal Not Available [facility] ([facility]) [address] [place], [address], 10/16/2023 13:11:11 10/15/19 24 10/16/2023 COMP. METAB OLIC PANEL (14) eGFR 49 mL/mi n/1.7 3 >59 below low normal Not Available [facility] ([facility]) [address] [place], [address], 10/16/2023 13:11:11 10/15/19 24 10/16/2023 COMP. METAB OLIC PANEL (14) BUN/creatini ne ratio 17 9-20 Not Available [facility] ([facility]) [address] [place], [address], 10/16/2023 13:11:11 10/15/19 24 10/16/2023 COMP. METAB OLIC PANEL (14) sodium 141 mmol/ L 134-14 4 Not Available [facility] ([facility]) [address] [place], [address], 10/16/2023 13:11:11 10/15/19 24 10/16/2023 COMP. METAB OLIC PANEL (14) potassium 4.5 mmol/ L 3.5-5. 2 Not Available [facility] ([facility]) [address], [place], [address], 10/16/2023 13:11:11 10/15/19 24 10/16/2023 COMP. METAB OLIC PANEL (14) chloride 106 mmol/ L 96-106 Not Available [facility] ([facility]) [address] [place], [address], 10/16/2023 13:11:11 10/15/19 24 10/16/2023 COMP. METAB OLIC PANEL (14) carbon dioxide, total 18 mmol/ L 20-29 below low normal Not Available [facility] ([facility]) [address] [place], [address], 10/16/2023 13:11:11 10/15/19 24 10/16/2023 COMP. METAB OLIC PANEL (14) calcium 9.4 mg/dL 8.7-10 .2 Not Available [facility] ([facility]) [address] [place], [address], 10/16/2023 13:11:11 10/15/19 24 10/16/2023 COMP. METAB OLIC PANEL (14) protein, total 7.6 g/dL 6.0-8. 5 Not Available [facility] ([facility]) [address] [place], [address], 10/16/2023 13:11:11 10/15/19 24 10/16/2023 COMP. METAB OLIC PANEL (14) albumin 4.5 g/dL 4.1-5. 1 Not Available [facility] ([facility]) [address] [place], [address], 10/16/2023 13:11:11 10/15/19 24 10/16/2023 COMP. METAB OLIC PANEL (14) globulin, total 3.1 g/dL 1.5-4. 5 Not Available [facility] ([facility]) [address] [place], [address], 10/16/2023 13:11:11 10/15/19 24 10/16/2023 COMP. METAB OLIC PANEL (14) A/G ratio 1.5 1.2-2. 2 Not Available [facility] ([facility]) [address], [place], [address], 10/16/2023 13:11:11 10/15/19 24 10/16/2023 COMP. METAB OLIC PANEL (14) bilirubin, total 0.3 mg/dL 0.0-1. 2 Not Available [facility] ([facility]) [address], [place], [address], 10/16/2023 13:11:11 10/15/19 24 10/16/2023 COMP. METAB OLIC PANEL (14) alkaline phosphatase 57 IU/L 44-121 Not Available [facility] ([facility]) [address], [place], [address], 10/16/2023 13:11:11 10/15/19 24 10/16/2023 COMP. METAB OLIC PANEL (14) AST (SGOT) 29 IU/L 0-40 Not Available [facility] ([facility]) [address], [place], [address], 10/16/2023 13:11:11 10/15/19 24 10/16/2023 COMP. METAB OLIC PANEL (14) ALT (SGPT) 24 IU/L 0-44 Not Available [facility] ([facility]) [address], [place], [address], 10/16/2023 13:11:11 10/15/19 24 10/16/2023 URINA LYSIS , ROUTI NE specific gravity 1.018 1.005- 1.030 Not Available [facility] ([facility]) [address], [place], [address], 10/16/2023 13:11:13 10/15/19 24 10/16/2023 URINA LYSIS , ROUTI NE pH 6.0 5.0-7. 5 Not Available [facility] ([facility]) [address], [place], [address], 10/16/2023 13:11:13 10/15/19 24 10/16/2023 URINA LYSIS , ROUTI NE urine-color YELLOW yellow Not Available [facility] ([facility]) [address], [place], [address], 10/16/2023 13:11:13 10/15/19 24 10/16/2023 URINA LYSIS , ROUTI NE appearance CLEAR clear Not Available [facility] ([facility]) [address] [place], [address], 10/16/2023 13:11:13 10/15/19 24 10/16/2023 URINA LYSIS , ROUTI NE WBC esterase NEGATI VE negati ve Not Available [facility] ([facility]) [address] [place], [address], 10/16/2023 13:11:13 10/15/19 24 10/16/2023 URINA LYSIS , ROUTI NE protein NEGATI VE negati ve/tra ce Not Available [facility] ([facility]) [address], [place], [address], 10/16/2023 13:11:13 10/15/19 24 10/16/2023 URINA LYSIS , ROUTI NE glucose NEGATI VE negati ve Not Available [facility] ([facility]) [address] [place], [address], 10/16/2023 13:11:13 10/15/19 24 10/16/2023 URINA LYSIS , ROUTI NE ketones NEGATI VE negati ve Not Available [facility] ([facility]) [address] [place], [address], 10/16/2023 13:11:13 10/15/19 24 10/16/2023 URINA LYSIS , ROUTI NE occult blood NEGATI VE negati ve Not Available [facility] ([facility]) [address], [place], [address], 10/16/2023 13:11:13 10/15/19 24 10/16/2023 URINA LYSIS , ROUTI NE bilirubin NEGATI VE negati ve Not Available [facility] ([facility]) [address], [place], [address], 10/16/2023 13:11:13 10/15/19 24 10/16/2023 URINA LYSIS , ROUTI NE urobilinogen ,semi-qn 0.2 mg/dL 0.2-1. 0 Not Available [facility] ([facility]) [address], [place], [address], 10/16/2023 13:11:13 10/15/19 24 10/16/2023 URINA LYSIS , ROUTI NE nitrite, urine NEGATI VE negati ve Not Available [facility] ([facility]) [address], [place], [address], 10/16/2023 13:11:13 10/15/19 24 10/16/2023 URINA LYSIS , ROUTI NE microscopic examination COMMEN T Micro scopi c not indic ated and not perfo rmed. Not Available [facility] ([facility]) [address], [place], [address], 10/16/2023 13:11:13 10/15/19 24 10/16/2023 CBC WITH DIFFE RENTI AL/PL ATELE T WBC 5.3 x10e3 /uL 3.4-10 .8 Not Available [facility] ([facility]) [address], [place], [address], 10/16/2023 13:11:14 10/15/19 24 10/16/2023 CBC WITH DIFFE RENTI AL/PL ATELE T RBC 4.72 x10e6 /uL 4.14-5 .80 Not Available [facility] ([facility]) [address], [place], [address], 10/16/2023 13:11:14 10/15/19 24 10/16/2023 CBC WITH DIFFE RENTI AL/PL ATELE T hemoglobin 13.8 g/dL 13.0-1 7.7 Not Available [facility] ([facility]) [address], [place], [address], 10/16/2023 13:11:14 10/15/19 24 10/16/2023 CBC WITH DIFFE RENTI AL/PL ATELE T hematocrit 42.1 % 37.5-5 1.0 Not Available [facility] ([facility]) [address], [place], [address], 10/16/2023 13:11:14 10/15/19 24 10/16/2023 CBC WITH DIFFE RENTI AL/PL ATELE T MCV 89 fL 79-97 Not Available [facility] ([facility]) [address], [place], [address], 10/16/2023 13:11:14 10/15/19 24 10/16/2023 CBC WITH DIFFE RENTI AL/PL ATELE T MCH 29.2 pg 26.6-3 3.0 Not Available [facility] ([facility]) [address], [place], [address], 10/16/2023 13:11:14 10/15/19 24 10/16/2023 CBC WITH DIFFE RENTI AL/PL ATELE T MCHC 32.8 g/dL 31.5-3 5.7 Not Available [facility] ([facility]) [address], [place], [address], 10/16/2023 13:11:14 10/15/19 24 10/16/2023 CBC WITH DIFFE RENTI AL/PL ATELE T RDW 13.0 % 11.6-1 5.4 Not Available [facility] ([facility]) [address], [place], [address], 10/16/2023 13:11:14 10/15/19 24 10/16/2023 CBC WITH DIFFE RENTI AL/PL ATELE T platelets 221 x10e3 /uL 150-45 0 Not Available [facility] ([facility]) [address], [place], [address], 10/16/2023 13:11:14 10/15/19 24 10/16/2023 CBC WITH DIFFE RENTI AL/PL ATELE T neutrophils 35 % notest ab. Not Available [facility] ([facility]) [address], [place], [address], 10/16/2023 13:11:14 10/15/19 24 10/16/2023 CBC WITH DIFFE RENTI AL/PL ATELE T lymphs 53 % notest ab. Not Available [facility] ([facility]) [address], [place], [address], 10/16/2023 13:11:14 10/15/19 24 10/16/2023 CBC WITH DIFFE RENTI AL/PL ATELE T monocytes 9 % notest ab. Not Available [facility] ([facility]) [address], [place], [address], 10/16/2023 13:11:14 10/15/19 24 10/16/2023 CBC WITH DIFFE RENTI AL/PL ATELE T eos 2 % notest ab. Not Available [facility] ([facility]) [address], [place], [address], 10/16/2023 13:11:14 10/15/19 24 10/16/2023 CBC WITH DIFFE RENTI AL/PL ATELE T basos 1 % notest ab. Not Available [facility] ([facility]) [address], [place], [address], 10/16/2023 13:11:14 10/15/19 24 10/16/2023 CBC WITH DIFFE RENTI AL/PL ATELE T neutrophils (absolute) 1.9 x10e3 /uL 1.4-7. 0 Not Available [facility] ([facility]) [address], [place], [address], 10/16/2023 13:11:14 10/15/19 24 10/16/2023 CBC WITH DIFFE RENTI AL/PL ATELE T lymphs (absolute) 2.8 x10e3 /uL 0.7-3. 1 Not Available [facility] ([facility]) [address], [place], [address], 10/16/2023 13:11:14 10/15/19 24 10/16/2023 CBC WITH DIFFE RENTI AL/PL ATELE T monocytes(ab solute) 0.5 x10e3 /uL 0.1-0. 9 Not Available [facility] ([facility]) [address], [place], [address], 10/16/2023 13:11:14 10/15/19 24 10/16/2023 CBC WITH DIFFE RENTI AL/PL ATELE T eos (absolute) 0.1 x10e3 /uL 0.0-0. 4 Not Available [facility] ([facility]) [address], [place], [address], 10/16/2023 13:11:14 10/15/19 24 10/16/2023 CBC WITH DIFFE RENTI AL/PL ATELE T baso (absolute) 0.0 x10e3 /uL 0.0-0. 2 Not Available [facility] ([facility] [facility] [address], [place], [address], 10/16/2023 13:11:14 10/15/19 24 10/16/2023 CBC WITH DIFFE RENTI AL/PL ATELE T immature granulocytes 0 % notest ab. Not Available [facility] ([facility]) [address], [place], [address], 10/16/2023 13:11:14 10/15/19 24 10/16/2023 CBC WITH DIFFE RENTI AL/PL ATELE T immature grans (abs) 0.0 x10e3 /uL 0.0-0. 1 Not Available [facility] ([facility]) [address], [place], [address], 10/16/2023 13:11:14 01/12/20 24 01/13/2024 CREAT ININE creatinine 1.22 mg/dL 0.76-1 .27 Not Available [facility] ([facility]) [address], [place], [address], 01/13/2024 06:21:03 01/12/20 24 01/13/2024 CREAT ININE eGFR 73 mL/mi n/1.7 3 >59 Not Available [facility] ([facility]) [address], [place], [address], 01/13/2024 06:21:03 01/12/20 24 01/13/2024 URINA LYSIS , ROUTI NE specific gravity 1.022 1.005- 1.030 Not Available [facility] ([facility]) [address] [place], [address], 01/13/2024 06:21:05 01/12/2001/13/2024 URINA LYSIS , ROUTI NE pH 6.0 5.0-7. 5 Not Available [facility] ([facility]) [address] [place], [address], 01/13/2024 06:21:05 01/12/2001/13/2024 URINA LYSIS , ROUTI NE urine-color YELLOW yellow Not Available [facility] ([facility]) [address], [place], [address], 01/13/2024 06:21:05 01/12/20 24 01/13/2024 URINA LYSIS , ROUTI NE appearance CLEAR clear Not Available [facility] ([facility]) [address] [place], [address], 01/13/2024 06:21:05 01/12/20 24 01/13/2024 URINA LYSIS , ROUTI NE WBC esterase NEGATI VE negati ve Not Available [facility] ([facility]) [address] [place], [address], 01/13/2024 06:21:05 01/12/20 24 01/13/2024 URINA LYSIS , ROUTI NE protein NEGATI VE negati ve/tra ce Not Available [facility] ([facility]) [address] [place], [address], 01/13/2024 06:21:05 01/12/20 24 01/13/2024 URINA LYSIS , ROUTI NE glucose NEGATI VE negati ve Not Available [facility] ([facility]) [address] [place], [address], 01/13/2024 06:21:05 01/12/20 24 01/13/2024 URINA LYSIS , ROUTI NE ketones NEGATI VE negati ve Not Available [facility] ([facility]) [address] [place], [address], 01/13/2024 06:21:05 01/12/20 24 01/13/2024 URINA LYSIS , ROUTI NE occult blood NEGATI VE negati ve Not Available [facility] ([facility]) [address] [place], [address], 01/13/2024 06:21:05 01/12/20 24 01/13/2024 URINA LYSIS , ROUTI NE bilirubin NEGATI VE negati ve Not Available [facility] ([facility]) [address] [place], [address], 01/13/2024 06:21:05 01/12/20 24 01/13/2024 URINA LYSIS , ROUTI NE urobilinogen ,semi-qn 0.2 mg/dL 0.2-1. 0 Not Available [facility] ([facility]) [address], [place], [address], 01/13/2024 06:21:05 01/12/20 24 01/13/2024 URINA LYSIS , ROUTI NE nitrite, urine NEGATI VE negati ve Not Available [facility] ([facility]) [address], [place], [address], 01/13/2024 06:21:05 01/12/20 24 01/13/2024 URINA LYSIS , ROUTI NE microscopic examination COMMEN T Micro scopi c not indic ated and not perfo rmed. Not Available [facility] ([facility]) [address], [place], [address], 01/13/2024 06:21:05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
--- OUTSIDE RECORDS SUMMARY | 2024-07-12 13:39 | XMS_ITS | CONTINUITY OF CARE DOCUMENT ---
Author Name belinda trevino Address Unknown Organization [facility] Address [address] [place] [address] Phone [phone] Care Team Providers Care Microstrategy Architect Name Role Phone Gilbert BERNABE, Giovani Unavailable MARK HARRINGTON MD Unavailable [phone] MARK HARRINGTON MD Unavailable [phone] INSURANCE PROVIDERS Payer name Policy type / Coverage type [employer] ID [employer] MEDICAID (2) Medicaid [id number]
== END 2024-07-12 11:44 | disposition home or self-care (01) ==
LOC: ANHIMG 11:48
PROVIDERS: Visit Provider Orthopaedic Surgery
DX: S46.811A Strain of other muscles, fascia and tendons at shoulder and upper arm level, right arm, initial encounter (principal); X58.XXXA Exposure to other specified factors, initial encounter; M19.011 Primary osteoarthritis, right shoulder
CPT/HCPCS: 23350; 73201; 77002; Q9966

== ENCOUNTER 2024-07-24 02:15 | Emergency (ER) | payer OTHER, SELFPAY ==
--- NOTE | ~2024-07-24 | CT_ITS ---
CTA chest abdomen pelvis Ordering provider: Jagdish Padilla MD History: . concern dissection, ab pain . Comparison: None. Technique: CT angiogram chest, abdomen and pelvis was performed following timed intravenous injection of contrast. Thin slice axial images and reformatted coronal images were obtained. Three dimensional reformatted images of the chest were also obtained using a [employer] workstation. Radiation reduction t echnique utilized.The dose-length product was 1152.65 mGy-cm. 100 mL Omnipaque 350 was given IV. FINDINGS: CHEST: --THORACIC AORTA: Normal aorta. . No aneurysm, dissection or mediastinal hematoma. --GREAT VESSELS: Normal as visualized. --PULMONARY ARTERIES: No pulmonary embolus. --VISUALIZED THORACIC INLET: Normal. --MEDIASTINUM: Coronary arteries: Normal. Heart/other: The heart is not enlarged. Lymph nodes: No mediastinal or hilar adenopathy. --LUNGS: No pulmonary nodules or masses. No infiltrates or effusions. No pneumothorax. Dependent atelectatic c hanges. --MUSCULOSKELETAL: Superficial soft tissues: The superficial soft tissues are normal. Bones: Normal spine. ABDOMEN/PELVIS: --MUSCULOSKELETAL: Bones: Normal spine. Pubic symphysitis. Early left sacroiliitis. Superficial soft tissues: The superficial soft tissues are normal. --UPPER ABDOMINAL ORGANS: Liver: Normal. Gallbladder: Normal. Spleen: Normal. Stomach/duodenum: Normal. Pancreas: Normal. Adrenals: Normal. Kidneys: Small cyst in the left kidney upper pole. Minimal fullness of the renal pelvis bilaterally m ost likely due to extrarenal position --PELVIC ORGANS: The bladder is normal. No bladder stones. --BOWEL AND MESENTERY: Colon: Minimal fat stranding is seen around the distal descending colon which may indicate colitis or diverticulitis. Clinical correlation for tenderness in the area advised. Slight thickening of the wa ll of the transverse colon is also seen which is suggestive of colitis.. Normal appendix. Small Bowel: Normal. No obstruction. Peritoneum/mesentery: No free air or free fluid. No mesenteric lymphadenopathy. --RETROPERITONEUM: No retroperitoneal lymphadenopathy. --ARTERIES: ABDOMINAL AORTA: Normal. No aneurysm or dissection. RENAL ARTERIES: Normal. CELIAC AXIS: Normal. SMA: Normal. WILLIAM: Normal. ILIAC AND VISUALIZED FEMORAL ARTERIES: Normal. MESENTERIC ARTERIES: Normal. IMPRESSION: CHEST: 1. No evidence of aneurysm or dissection. 2. No acute cardiopulmonary pathology. ABDOMEN/PELVIS: 1. No evidence of aneurysm or dissection. 2. Minimal fat stranding around the descending colon distally which may indicate colitis diverticuli tis clinical correlation and follow-up advised. Thickening of the wall of the transverse colon is als o seen which may indicate colitis. 3. No other definite abnormality seen. Reviewed, dictated and finalized at location A. IMPRESSION: CHEST: 1. No evidence of aneurysm or dissection. 2. No acute cardiopulmonary pathology. ABDOMEN/PELVIS: 1. No evidence of aneurysm or dissection. 2. Minimal fat stranding around the descending colon distally which may indica te colitis diverticulitis clinical correlation and follow-up advised. Thickenin g of the wall of the transverse colon is also seen which may indicate colitis. 3. No other definite abnormality seen.
--- OUTSIDE RECORDS SUMMARY | 2024-07-24 02:18 | XMS_ITS | CONTINUITY OF CARE DOCUMENT ---
Author Name belinda trevino Address Unknown Organization [facility] Address [address] [place] [address] Phone [phone] Care Team Providers Care Government Property Inspector Name Role Phone Gilbert BERNABE, Giovani Unavailable MARK HARRINGTON MD Unavailable [phone] MARK HARRINGTON MD Unavailable [phone] INSURANCE PROVIDERS Payer name Policy type / Coverage type Mark red democrat ID [employer] MEDICAID (2) Medicaid [id number]
--- OUTSIDE RECORDS SUMMARY | 2024-07-24 02:18 | XMS_ITS | Data Portability ---
Author Organization SHARI STEVENCarley Boswell Address [address] [place] [address] Assessment No assessment recorded. Plan of Treatment Reminders Order Date Submit Date Provider Last Modified By Organization Details Last Modified Time Details Appointments None recorded. Lab creatinine, serum or plasma 2023 024 [facility], [address], [address], [place], [address], 4 06:21:03 urinalysis, dipstick 2023 024 [facility], [address], [address], [place], [address], 4 06:21:05 PSA, total, serum or plasma 2023 024 [facility], [address], [address], [place], [address], 4 09:19:10 urinalysis, dipstick 2023 024 [facility], [address], [address], [place], [address], 4 13:11:13 CBC w/ auto diff 2023 024 [facility], [address], [address], [place], [address], 4 13:11:14 CMP, serum or plasma 2023 024 [facility], [address], [address], [place], [address], 4 13:11:12 lipid panel, serum 2023 024 [facility], [address], [address], [place], [address], 4 13:11:10 HbA1c (hemoglobin A1c), blood 2023 024 [facility], [address], [address], [place], [address], 4 09:19:09 albumin/cre atinine, mass ratio, urine 2023 024 [facility], [address], [address], [place], [address], 4 09:19:08 HbA1c (hemoglobin A1c), blood 2022 023 [facility] In-Office Order, Internal Use Only DO Not Attach Compendium DO Not Attach Compendium, Do Not Delete/merge, [id number] 3 12:25:03 glucose, fingerstick , blood 2022 023 [facility] In-Office Order, Internal Use Only DO Not Attach Compendium DO Not Attach Compendium, Do Not Delete/merge, [id number] 3 12:25:03 CMP, serum or plasma 2022 023 [facility], [address], [place], [address], 3 12:48:38 HbA1c (hemoglobin A1c), blood 2022 023 [facility], [address], [address], [place], [address], 4 09:37:12 microalbumi n/creatinin e, mass ratio, urine 2022 023 [facility], [address], [place], [address], 4 09:37:17 noninvasive colorectal cancer DNA + occult blood screening, QL, stool 2022 023 [facility] (Cologuard Orders Only), [address], [address], [place], [address], 3 09:42:03 Referral diabetic ophthalmolo gy referral - HBA1C 5.9% 2023 024 [facility], [address], [place], [address], 4 14:49:43 cardiologis t referral - Please call patient for appointment , thanks! 2023 024 [facility], [address], [address], [place], [address], 5 10:22:10 diabetic ophthalmolo gy referral - Please call patient for appointment , thanks! 2022 024 [facility], [address], [place], [address], 4 15:09:06 Procedures None recorded. Surgeries None recorded. Imaging US, kidney - DM, elevated Creatinine 2023 024 [facility] (One Call Scheduling), [address], [place], [address], 4 12:52:30 Medication Orders rosuvastati n 20 mg tablet 2023 024 [facility][id number], [address], [place], [place], [id number], 4 16:17:15 aspirin 81 mg tablet,raman yed release 2023 024 [facility] #98085, [address], [place], [place], [id number], 4 10:37:18 Blood Glucose Test strips 2023 024 [facility] #96767, [address], [place], [place], [id number], 4 10:37:18 Blood Glucose Test strips 2023 024 [facility] #10978, [address], [place], [place], [id number], 4 12:27:29 Blood Glucose Test strips 2022 023 [facility] #02087, [address], [place], [place], [id number], 3 18:29:45 alcohol swabs 2022 023 [facility] #83119, [address], [place], [place], [id number], 3 12:26:24 Blood Glucose Test strips 2022 023 [facility] #[id number], [address], [place], [place], [id number], 3 13:33:11 Patient TargetsNo targets recorded. Patient Instructions Encounter Date Encounter Id Patient Instructions Last Modified By Organization Details Last Modified Time 11/28/2022 [id number] learning about t ype 2 diabetes [facility] Not available 11/28/2022 12:48:34 type 2 diabetes: care instructions [facility] Not available 11/28/2022 12:48:34 09/24/2023 [id number] A healthy lifestyle: care instructions oaelyo Not [...] controlled oaelyo Not available 09/24/2023 10:17:20 11/23/2023 [id number] Renal US Start Rosuvastatin Monitor your blood pressure Low CHO, low saturated fat diet Low salt diet Labs Note from the Hand Button Splitter Follow up in 4 weeks oavadim Not available 11/23/2023 16:21:15 Reason for Referral Diabetic Ophthalmology Refer ral for Prediabetes Please call patient for appointment, thanks! Referring Physician: Abraham Estrada, Internal Medicine, Encounter Date: 02/09/2023 Physical Therapy Resident Referral for Fl uttering heart Please call [...] of 10,00 0 [facility] [place] [facility] risk for color ectal cance r [...] asymp tomat ic indiv idual s [facility] [place] [facility] risk for color ectal cance r. [...] 112:1 016-1 030. TEST DESCR IPTIO N: Koosharem site algor ithmi c emi sis of [...] years or older , who are at [facility] for color ectal cance r ([facility]) . Colog uard has been appro stephanie for use by the [place] FDA. The perfo rmanc e of Colog uard was estab lishe d in a cross secti onal study of [facility] adult s aged 50-84 . Colog [...] 1cm diame ter) [20%] or non- advan rosalina adeno ma [31%] ; or no color ectal neopl hong [45%] . These estim ates are deriv ed from a prosp ectiv e cross -sect ional scree jeanette study of 0 indiv idual s at [facility] risk for color ectal cance r [...] at www.c lucrecia diaz.c om. Not Available [facility] (Cologuard Orders Only) [address], [place], [address], 12/21/2022 09:42:03 02/10/20 23 02/09/2023 gluco se, finge rstic k, blood Blood Glucose: mg/dl 103 Not Available In-Off ice Order Internal Use Only DO Not Attach Compendium DO Not Attach Compendium, Do Not Delete/merge, [id number] 02/09/2023 12:22:03 02/10/20 23 02/09/2023 HbA1c (hemo globi n A1c), blood HbA1c 5.3 % Not Available In-Office Order Internal Use Only DO Not Attach Compendium DO Not Attach Compendium, Do Not Delete/merge, [id number] 02/09/2023 12:21:45 06/12/19 24 06/12/2023 HEMOG LOBIN A1C hemoglobin A1C 5.9 % 4.8-5. 6 above high normal Predi abete s: 5.7 - 6.4 Diabe bella: >6.4 Glyce alonso contr ol for adult s with diabe bella: <7.0 Not Available [facility] [address] [place], [address], 06/13/2023 06:26:28 06/12/19 24 06/13/2023 DIABE BELLA PATIE NT EDUCA TION pdf . Not Available [facility] [address] [place], [address], 06/13/2023 06:26:27 10/15/19 24 10/16/2023 ALBUM IN/CR EATIN INE RATIO ,URIN E creatinine, urine 84.0 mg/dL notest ab. Not Available [facility] ([facility]) [address] [place], [address], 10/16/2023 09:19:08 10/15/1910/16/2023 ALBUM IN/CR EATIN INE RATIO ,URIN E albumin, urine 3.8 ug/mL notest ab. Not Available [facility] ([facility]) [address] [place], [address], 10/16/2023 09:19:08 10/15/1910/16/2023 ALBUM IN/CR EATIN INE RATIO ,URIN E alb/creat ratio 5 mg/g_ creat 0-29 Kathia l: 0 - 29 Moder ately incre ased: 30 - 300 Sever arturo incre ased: >300 Not Available [facility] ([facility]) [address] [place], [address], 10/16/2023 09:19:08 10/15/1910/16/2023 HEMOG LOBIN A1C hemoglobin A1C 5.8 % 4.8-5. 6 above high normal Predi abete s: 5.7 - 6.4 Diabe bella: >6.4 Glyce alonso contr ol for adult s with diabe bella: <7.0 Not Available [facility] ([facility]) [address] [place], [address], 10/16/2023 09:19:09 10/15/1910/16/2023 PROST ATE-S PECIF IC [...] t be inter prete d as absol tuscarora evide nce of the prese nce or absen ce of daniel an[place] . Not Available [facility] ([facility]) [address] [place], [address], 10/16/2023 09:19:10 10/15/19 24 10/16/2023 LIPID PANEL cholesterol, total 205 mg/dL 100-19 9 above high normal Not Available [facility] ([facility]) [address] [place], [address], 10/16/2023 13:11:10 10/15/19 24 10/16/2023 LIPID PANEL triglyceride s 52 mg/dL 0-149 Not Available [facility] ([facility]) [address] [place], [address], 10/16/2023 13:11:10 10/15/19 24 10/16/2023 LIPID PANEL HDL cholesterol 66 mg/dL >39 Not Available [facility]) [address] [place], [address], 10/16/2023 13:11:10 10/15/19 24 10/16/2023 LIPID PANEL VLDL cholesterol dipti 9 mg/dL 5-40 Not Available [facility] ([facility]) [address] [place], [address], 10/16/2023 13:11:10 10/15/19 24 10/16/2023 LIPID PANEL LDL chol calc ([facility]) 130 mg/dL 0-99 above high normal Not Available [facility] ([facility]) [address] [place], [address], 10/16/2023 13:11:10 10/15/19 24 10/16/2023 COMP. METAB OLIC PANEL (14) glucose 107 mg/dL 70-99 above high normal Not Available [facility] ([facility]) [address] [place], [address], 10/16/2023 13:11:11 10/15/19 24 10/16/2023 COMP. METAB OLIC PANEL (14) BUN 23 mg/dL 6-24 Not Available [facility] ([facility]) [address] [place], [address], 10/16/2023 13:11:11 10/15/19 24 10/16/2023 COMP. METAB OLIC PANEL (14) creatinine 1.33 mg/dL 0.76-1 .27 above high normal Not Available [facility] ([facility]) [address] [facility] [place], [address], 10/16/2023 13:11:11 10/15/19 24 10/16/2023 COMP. METAB OLIC PANEL (14) eGFR 49 mL/mi n/1.7 3 >59 below low normal Not Available [facility] ([facility]) [address] [place], [address], 10/16/2023 13:11:11 10/15/19 24 10/16/2023 COMP. METAB OLIC PANEL (14) BUN/creatini ne ratio 17 9-20 Not Available [facility] ([facility]) [address] [place], [address], 10/16/2023 13:11:11 10/15/19 24 10/16/2023 COMP. METAB OLIC PANEL (14) sodium 141 mmol/ L 134-14 4 Not Available [facility] ([facility]) [address] [place] [place], [address], 10/16/2023 13:11:11 10/15/19 24 10/16/2023 COMP. METAB OLIC PANEL (14) potassium 4.5 mmol/ L 3.5-5. 2 Not Available [facility] ([facility]) [address] [facility], [place], [address], 10/16/2023 13:11:11 10/15/19 24 10/16/2023 COMP. METAB OLIC PANEL (14) chloride 106 mmol/ L 96-106 Not Available [facility] ([facility]) [address] [place], [address], 10/16/2023 13:11:11 10/15/19 24 10/16/2023 COMP. METAB OLIC PANEL (14) carbon dioxide, total 18 mmol/ L 20-29 below low normal Not Available [facility] ([facility]) [address] [place], [address], 10/16/2023 13:11:11 10/15/19 24 10/16/2023 COMP. METAB OLIC PANEL (14) calcium 9.4 mg/dL 8.7-10 .2 Not Available [facility] ([facility]) [address] [place], [address], 10/16/2023 13:11:11 10/15/19 24 10/16/2023 COMP. METAB OLIC PANEL (14) protein, total 7.6 g/dL 6.0-8. 5 Not Available [facility] ([facility] [address] [facility] [place], [address], 10/16/2023 13:11:11 10/15/19 24 10/16/2023 COMP. METAB OLIC PANEL (14) albumin 4.5 g/dL 4.1-5. 1 Not Available [facility] ([facility] [address] [facility] [place], [address], 10/16/2023 13:11:11 10/15/19 24 10/16/2023 COMP. METAB OLIC PANEL (14) globulin, total 3.1 g/dL 1.5-4. 5 Not Available [facility] ([facility] [address] [facility] [place], [address], 10/16/2023 13:11:11 10/15/19 24 10/16/2023 COMP. METAB OLIC PANEL (14) A/G ratio 1.5 1.2-2. 2 Not Available [facility] ([facility]) [address] [facility], [place], [address], 10/16/2023 13:11:11 10/15/19 24 10/16/2023 COMP. METAB OLIC PANEL (14) bilirubin, total 0.3 mg/dL 0.0-1. 2 Not Available [facility] ([facility]) [address] [facility], [place], [address], 10/16/2023 13:11:11 10/15/19 24 10/16/2023 COMP. METAB OLIC PANEL (14) alkaline phosphatase 57 IU/L 44-121 Not Available [facility]) [address] [facility], [place], [address], 10/16/2023 13:11:11 10/15/19 24 10/16/2023 COMP. METAB OLIC PANEL (14) AST (SGOT) 29 IU/L 0-40 Not Available [facility] ([facility]) [address] [facility], [place], [address], 10/16/2023 13:11:11 10/15/19 24 10/16/2023 COMP. METAB OLIC PANEL (14) ALT (SGPT) 24 IU/L 0-44 Not Available [facility] ([facility]) [address] [facility], [place], [address], 10/16/2023 13:11:11 10/15/19 24 10/16/2023 URINA LYSIS , ROUTI NE specific gravity 1.018 1.005- 1.030 Not Available [facility] ([facility]) [address] [facility], [place], [address], 10/16/2023 13:11:13 10/15/19 24 10/16/2023 URINA LYSIS , ROUTI NE pH 6.0 5.0-7. 5 Not Available [facility] ([facility]) [address] [facility], [place], [address], 10/16/2023 13:11:13 10/15/19 24 10/16/2023 URINA LYSIS , ROUTI NE urine-color YELLOW yellow Not Available [facility] ([facility]) [address] [facility], [place], [address], 10/16/2023 13:11:13 10/15/19 24 10/16/2023 URINA LYSIS , ROUTI NE appearance CLEAR clear Not Available [facility] ([facility]) [address] [place], [address], 10/16/2023 13:11:13 10/15/19 24 10/16/2023 URINA LYSIS , ROUTI NE WBC esterase NEGATI VE negati ve Not Available [facility] ([facility]) [address] [place], [address], 10/16/2023 13:11:13 10/15/19 24 10/16/2023 URINA LYSIS , ROUTI NE protein NEGATI VE negati ve/tra ce Not Available [facility] ([facility]) [address] [facility], [place], [address], 10/16/2023 13:11:13 10/15/19 24 10/16/2023 URINA LYSIS , ROUTI NE glucose NEGATI VE negati ve Not Available [facility] ([facility]) [address] [place], [address], 10/16/2023 13:11:13 10/15/19 24 10/16/2023 URINA LYSIS , ROUTI NE ketones NEGATI VE negati ve Not Available [facility] ([facility]) [address] [place], [address], 10/16/2023 13:11:13 10/15/19 24 10/16/2023 URINA LYSIS , ROUTI NE occult blood NEGATI VE negati ve Not Available [facility] ([facility]) [address] [facility], [place], [address], 10/16/2023 13:11:13 10/15/19 24 10/16/2023 URINA LYSIS , ROUTI NE bilirubin NEGATI VE negati ve Not Available [facility] ([facility]) [address] [facility], [place], [address], 10/16/2023 13:11:13 10/15/19 24 10/16/2023 URINA LYSIS , ROUTI NE urobilinogen ,semi-qn 0.2 mg/dL 0.2-1. 0 Not Available [facility] ([facility]) [address] [facility], [place], [address], 10/16/2023 13:11:13 10/15/19 24 10/16/2023 URINA LYSIS , ROUTI NE nitrite, urine NEGATI VE negati ve Not Available [facility] ([facility]) [address] [facility], [place], [address], 10/16/2023 13:11:13 10/15/19 24 10/16/2023 URINA LYSIS , ROUTI NE microscopic examination COMMEN T Micro scopi c not indic ated and not perfo rmed. Not Available [facility] ([facility]) [address] [facility], [place], [address], 10/16/2023 13:11:13 10/15/19 24 10/16/2023 CBC WITH DIFFE RENTI AL/PL ATELE T WBC 5.3 x10e3 /uL 3.4-10 .8 Not Available [facility] ([facility]) [address] [facility], [place], [address], 10/16/2023 13:11:14 10/15/19 24 10/16/2023 CBC WITH DIFFE RENTI AL/PL ATELE T RBC 4.72 x10e6 /uL 4.14-5 .80 Not Available [facility] ([facility]) [address] [facility], [place], [address], 10/16/2023 13:11:14 10/15/19 24 10/16/2023 CBC WITH DIFFE RENTI AL/PL ATELE T hemoglobin 13.8 g/dL 13.0-1 7.7 Not Available [facility] ([facility]) [address] [facility], [place], [address], 10/16/2023 13:11:14 10/15/19 24 10/16/2023 CBC WITH DIFFE RENTI AL/PL ATELE T hematocrit 42.1 % 37.5-5 1.0 Not Available [facility] ([facility]) [address] [facility], [place], [address], 10/16/2023 13:11:14 10/15/19 24 10/16/2023 CBC WITH DIFFE RENTI AL/PL ATELE T MCV 89 fL 79-97 Not Available [facility] ([facility]) [address] [facility], [place], [address], 10/16/2023 13:11:14 10/15/19 24 10/16/2023 CBC WITH DIFFE RENTI AL/PL ATELE T MCH 29.2 pg 26.6-3 3.0 Not Available [facility] ([facility]) [address] [facility], [place], [address], 10/16/2023 13:11:14 10/15/19 24 10/16/2023 CBC WITH DIFFE RENTI AL/PL ATELE T MCHC 32.8 g/dL 31.5-3 5.7 Not Available [facility] ([facility]) [address] [facility], [place], [address], 10/16/2023 13:11:14 10/15/19 24 10/16/2023 CBC WITH DIFFE RENTI AL/PL ATELE T RDW 13.0 % 11.6-1 5.4 Not Available [facility] ([facility]) [address] [facility], [place], [address], 10/16/2023 13:11:14 10/15/19 24 10/16/2023 CBC WITH DIFFE RENTI AL/PL ATELE T platelets 221 x10e3 /uL 150-45 0 Not Available [facility] ([facility]) [address] [facility], [place], [address], 10/16/2023 13:11:14 10/15/19 24 10/16/2023 CBC WITH DIFFE RENTI AL/PL ATELE T neutrophils 35 % notest ab. Not Available [facility] ([facility]) [address] [facility], [place], [address], 10/16/2023 13:11:14 10/15/19 24 10/16/2023 CBC WITH DIFFE RENTI AL/PL ATELE T lymphs 53 % notest ab. Not Available [facility] ([facility]) [address] [facility], [place], [address], 10/16/2023 13:11:14 10/15/19 24 10/16/2023 CBC WITH DIFFE RENTI AL/PL ATELE T monocytes 9 % notest ab. Not Available [facility] ([facility]) [address] [facility], [place], [address], 10/16/2023 13:11:14 10/15/19 24 10/16/2023 CBC WITH DIFFE RENTI AL/PL ATELE T eos 2 % notest ab. Not Available [facility] ([facility]) [address] [facility], [place], [address], 10/16/2023 13:11:14 10/15/19 24 10/16/2023 CBC WITH DIFFE RENTI AL/PL ATELE T basos 1 % notest ab. Not Available [facility] ([facility]) [address] [facility], [place], [address], 10/16/2023 13:11:14 10/15/19 24 10/16/2023 CBC WITH DIFFE RENTI AL/PL ATELE T neutrophils (absolute) 1.9 x10e3 /uL 1.4-7. 0 Not Available [facility] ([facility]) [address] [facility], [place], [address], 10/16/2023 13:11:14 10/15/19 24 10/16/2023 CBC WITH DIFFE RENTI AL/PL ATELE T lymphs (absolute) 2.8 x10e3 /uL 0.7-3. 1 Not Available [facility] ([facility]) [address] [facility], [place], [address], 10/16/2023 13:11:14 10/15/19 24 10/16/2023 CBC WITH DIFFE RENTI AL/PL ATELE T monocytes(ab solute) 0.5 x10e3 /uL 0.1-0. 9 Not Available [facility] ([facility]) [address] [facility], [place], [address], 10/16/2023 13:11:14 10/15/19 24 10/16/2023 CBC WITH DIFFE RENTI AL/PL ATELE T eos (absolute) 0.1 x10e3 /uL 0.0-0. 4 Not Available [facility] ([facility]) [address] [facility], [place], [address], 10/16/2023 13:11:14 10/15/19 24 10/16/2023 CBC WITH DIFFE RENTI AL/PL ATELE T baso (absolute) 0.0 x10e3 /uL 0.0-0. 2 Not Available [facility] ([facility]) [address] [facility], [place], [address], 10/16/2023 13:11:14 10/15/19 24 10/16/2023 CBC WITH DIFFE RENTI AL/PL ATELE T immature granulocytes 0 % notest ab. Not Available [facility] ([facility]) [address] [facility], [place], [address], 10/16/2023 13:11:14 10/15/19 24 10/16/2023 CBC WITH DIFFE RENTI AL/PL ATELE T immature grans (abs) 0.0 x10e3 /uL 0.0-0. 1 Not Available [facility] ([facility]) [address] [facility], [place], [address], 10/16/2023 13:11:14 01/12/20 24 01/13/2024 CREAT ININE creatinine 1.22 mg/dL 0.76-1 .27 Not Available [facility] ([facility]) [address] [facility], [place], [address], 01/13/2024 06:21:03 01/12/20 24 01/13/2024 CREAT ININE eGFR 73 mL/mi n/1.7 3 >59 Not Available [facility] ([facility]) [address] [facility], [place], [address], 01/13/2024 06:21:03 01/12/20 24 01/13/2024 URINA LYSIS , ROUTI NE specific gravity 1.022 1.005- 1.030 Not Available [facility] ([facility]) [address] [place], [address], 01/13/2024 06:21:05 01/12/2001/13/2024 URINA LYSIS , ROUTI NE pH 6.0 5.0-7. 5 Not Available [facility] ([facility]) [address] [facility] [place], [address], 01/13/2024 06:21:05 01/12/2001/13/2024 URINA LYSIS , ROUTI NE urine-color YELLOW yellow Not Available [facility] ([facility]) [address] [facility], [place], [address], 01/13/2024 06:21:05 01/12/20 24 01/13/2024 URINA LYSIS , ROUTI NE appearance CLEAR clear Not Available [facility] ([facility]) [address] [place], [address], 01/13/2024 06:21:05 01/12/20 24 01/13/2024 URINA LYSIS , ROUTI NE WBC esterase NEGATI VE negati ve Not Available [facility] ([facility]) [address] [place], [address], 01/13/2024 06:21:05 01/12/20 24 01/13/2024 URINA LYSIS , ROUTI NE protein NEGATI VE negati ve/tra ce Not Available [facility] ([facility]) [address] [place], [address], 01/13/2024 06:21:05 01/12/20 24 01/13/2024 URINA LYSIS , ROUTI NE glucose NEGATI VE negati ve Not Available [facility] ([facility]) [address] [place], [address], 01/13/2024 06:21:05 01/12/20 24 01/13/2024 URINA LYSIS , ROUTI NE ketones NEGATI VE negati ve Not Available [facility] ([facility]) [address] [place], [address], 01/13/2024 06:21:05 01/12/20 24 01/13/2024 URINA LYSIS , ROUTI NE occult blood NEGATI VE negati ve Not Available [facility] ([facility]) [address] [place], [address], 01/13/2024 06:21:05 01/12/20 24 01/13/2024 URINA LYSIS , ROUTI NE bilirubin NEGATI VE negati ve Not Available [facility] ([facility]) [address] [place], [address], 01/13/2024 06:21:05 01/12/20 24 01/13/2024 URINA LYSIS , ROUTI NE urobilinogen ,semi-qn 0.2 mg/dL 0.2-1. 0 Not Available [facility] ([facility]) [address] [facility], [place], [address], 01/13/2024 06:21:05 01/12/20 24 01/13/2024 URINA LYSIS , ROUTI NE nitrite, urine NEGATI VE negati ve Not Available [facility] ([facility]) [address] [facility], [place], [address], 01/13/2024 06:21:05 01/12/20 24 01/13/2024 URINA LYSIS , ROUTI NE microscopic examination COMMEN T Micro scopi c not indic ated and not perfo rmed. Not Available [facility] ([facility]) [address] [facility], [place], [address], 01/13/2024 06:21:05 05/10/20 23 05/10/2023 CT, head, w/o contr ast No observ ation [facility] ed[facility] [address] [place], [address], 09/24/2023 09:46:45 02/17/20 24 02/17/2024 , osmani arciniega No observ ation record ed. [email or web address] [address] [place], [address], 03/03/2024 16:26:41 Result Notes None recorded. Problems Name Problem SNOMED Code Status Onset Date Resolution Date Notes Provider Name and Address Organization Details Recorded Time SARS-CoV-2 vaccination declined 7342741944 Active 2023 Catrachito Jon MD Attn: Saida g,[address] [facility], [place], [address], [place] - [place] 09:57:57 Type 2 diabetes mellitus without complication 359036927 Active 2023 Catrachito Jon MD Attn: Saida rojas,[address] [facility], [place], [address], [place] - S[place] 4 10:03:35 Disorder of lipid metabolism 170603493 Active 2023 Catrachito Jon MD Attn: Saida rojas,[address] [facility], [place], [address], [place] - SIF 4 10:03:52 Tetanus vaccination declined by patient [id number] Active 2023 Catrachito Jon MD Attn: Saida rojas,[address] [facility], [place], [address], [facility] - SIF 4 10:43:04 Elevated blood-pressur e reading without diagnosis of hypertension [id number] Active 2023 Catrachito Jon MD Attn: Saida rojas,[address] [facility], [place], [address], [place] 4 16:19:35 Problem Notes None recorded. Procedures Surgical History Date Name Laterality Status Provider Name and Address Organization Details Recorded Time Diabetic Foot Exam completed Catrachito Jon MD Attn: Accounting,[address] [facility], [place], [address], [place] 09/24/2023 10:14:57 Imaging Results Imaging Date Name Status LastModified by Organiz ation Details LastModified Time 05/10/2023 CT, [facility] [address] [place], [address], 09/24/2023 09:46:45 02/17/2024 US, kidney completed [facility] [address] [place], [address], 03/03/2024 16:26:41 Procedure Notes None recorded. Medical Equipment None Reported. Allergies Allergen ID Allergen Name Allergen Category Reaction Reaction Severity Criticality Documentation Date Start Date Code Code System Note Provider Name and Address Organization Details Recorded Time 914441 shrimp allergeni c extract food Not available Not available Not available 04/24/2020 63135 2 RxNorm Not Available Not Available Not Available 656007 shellfish derived food,medi cation vomiting Not available Not available 11/23/2023 40086 UNK Not Available Not Available Not Available 262478 iodine medicatio n Not available Not available Not available 11/23/2023 5933 RxNorm Not Available Not Available Not Available 01202 acetamino phen medicatio n Not available Not available Not available 04/16/2016 161 RxNorm Not Available Not Available Not Available 04838 Tylenol medicatio n rash Not available Not available 04/16/201669334 3 RxNorm Not Available Not Available Not [...] Updated DateTime 3 180.34 cm 30.3 kg/m2 58249.5 4 g 63 /min 98 % 98 % 127 mm[Hg] 84 mm[Hg] Senia Tristan [place] [facility] 3 12:38:50 Date Recorded Body height Body mass index (BMI) Body weight Heart rate Oxygen saturation Oxygen saturation in Arterial blood by Pulse oximetry Systolic blood pressure Diastolic blood pressure Provider Name and Address Organization Details Last Updated DateTime 3 180.34 cm 28.7 kg/m2 69363.0 3 g 93 /min 96 % 96 % 126 mm[Hg] 76 mm[Hg] Daiana Greene MA [place] 3 12:01:01 Date Recorded Body height Body mass index (BMI) Body weight Heart rate Oxygen saturation Oxygen saturation in Arterial blood by Pulse oximetry Systolic blood pressure Diastolic blood pressure Provider Name and Address Organization Details Last Updated DateTime 4 180.34 cm 30.5 kg/m2 56977.7 3 g 79 /min 98 % 98 [...] Updated DateTime 4 180.34 cm 30.7 kg/m2 18654.3 2 g 64 /min 99 % 99 [...] Updated DateTime 4 180.34 cm 29.7 kg/m2 37228.7 4 g 72 /min 98 % 98 % 16 /min 140 mm[Hg] 86 mm[Hg] Elena Crain MA [place] - [place] 4 15:15:42 Date Recorded Systolic blood pressure Diastolic blood pressure Provider Name and Address Organization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
--- OUTSIDE RECORDS SUMMARY | 2024-07-24 02:18 | XMS_ITS | Patient Health Summary ---
Author Organization [facility] [employer] Address [address] [place] [address] Care Team Providers Care Scale Tester Name Role Phone Unknown, Provider Primary Care Provider Unavaila ble Note from [facility] [employer] [facility],non-owned Affiliates and Associated Physician Practices is amultiple site organization consisting of ambulatory clinics and hospital sitesin [place], [place], [place] and [place]. This disclosure is being madepursuant to the Care Everywhere program and may not contain all information available regarding this patient. Last updated 18.[facility] [employer] Allergies * Acetaminophen(Rash) -Medium Criticality * Propoxyphene [...] Comments Blood Pressure 115/86 05/31/2024 12:03 PM COGNOS REPORT DEVELOPER Pulse 110 05/31/2024 12:03 PM COGNOS REPORT DEVELOPER Temperature 37.6 C (99.6 F) 05/31/2024 12:03 PM COGNOS REPORT DEVELOPER Respiratory Rate 19 05/31/2024 12:03 PM COGNOS REPORT DEVELOPER Oxygen Saturation 99% 05/31/2024 12:03 PM COGNOS REPORT DEVELOPER Inhaled Oxygen Concentration - - Weight 56.7 kg (125 lb) 05/31/2024 12:03 PM COGNOS REPORT DEVELOPER Height 180.3 cm (5' 11 ) 05/31/2024 12:03 PM COGNOS REPORT DEVELOPER Body Mass Index 17.43 05/31/2024 12:03 PM COGNOS REPORT DEVELOPER Procedures * CULTURE STREP GROUP A(Performed 05/31/2024) * STREP A SCREEN DIRECT W RFLX STREP A CULTURE(Performed 05/31/2024) * SARS-COV-2 (COVID-19) FLU A/B RSV PCR RAPID(Performed 05/31/2024) Results * SARS-COV-2 (COVID-19) FLU A/B RSV PCR RAPID (05/31/2024 12:46 PM COGNOS REPORT DEVELOPER) COVID-19 PCR Not detected Not detected 05/31/19 1:28 PM [facility] Influenza A PCR Not detected Not detected 05/31/2024 1:28 PM [facility] Influenza B PCR Not detected Not detected 05/31/2024 1:28 PM [facility] RSV PCR Not detected Not detected 05/31/2024 1:28 PM [facility] Microbiology SPECIMEN FROM NASOPHARYNGEAL STRUCTURE / Unknown Collection / Unknown 05/31/2024 12:46 PM COGNOS REPORT DEVELOPER 05/31/2024 12:49 PM COGNOS REPORT DEVELOPER Narrative [facility] - 05/31/2024 1:28 PM COGNOS REPORT DEVELOPER This nucleic acid amplification assay has been [...] assay are available upon request. Yelitza Stroud [employer] ORDERABLES Performing Organization Address [facility]/ZIP Co de Phone Number [address] [address], [facility] [phone] * STREP A SCREEN DIRECT W RFLX STREP A CULTURE (05/31/2024 12:46 PM COGNOS REPORT DEVELOPER) Rapid Strep A Screen Negative Negative 05/31/2024 1:01 PM COGNOS REPORT DEVELOPER [facility] Microbiology ENTIRE THROAT (SURFACE REGION OF NECK) / Unknown Collection / Unknown 05/31/2024 12:46 PM COGNOS REPORT DEVELOPER 05/31/2024 12:49 PM COGNOS REPORT DEVELOPER Narrative [facility] - 05/31/2024 1:01 PM COGNOS REPORT DEVELOPER Rapid test for Group A Beta Streptococcus is NEGATIVE. A Negative, Direct Test for Group A Streptococcus will be followed with a confirmatory Throat Culture when 2 swabs have been submitted. Yelitza VillalobosCrowdMed HIRed-M Group [facility] [employer] ORDERABLES Performing Organization Address [facility] Co de Phone Number [address] [address], [facility] [phone] * CULTURE STREP GROUP A (05/31/2024 12:46 PM COGNOS REPORT DEVELOPER) Culture Negative for beta-hemolytic Streptococcus Group A AFSHAN 2024 5:25 PM COGNOS REPORT DEVELOPER [facility] MICROBIOLOG[facility] Microbiology ENTIRE THROAT (SURFACE REGION OF NECK) / Unknown Collection / Unknown 05/31/2024 12:46 PM COGNOS REPORT DEVELOPER 05/31/2024 12:49 PM COGNOS REPORT DEVELOPER Yelitza Alexander [facility] InsaneSahale [facility]AUR[facility] ORDERABLES [facility] [address] [place] [address], [facility] [phone] Care Teams Scale Tester Relationship Specialty Start Date End Date Unknown, Provider PCP - General 11/04/17
--- OUTSIDE RECORDS SUMMARY | 2024-07-24 02:18 | XMS_ITS | Clinical Summary ---
Author Organization [facility] Address [address] [place] [address] Care Team Providers Care Chairman And Chief Executive Officer Name Role Phone Unknown, Provider Primary Care Provider Unavaila ble Source Comments [facility],non-owned Affiliates and Associated Physician Practices is amultiple site organization consisting of ambulatory clinics and hospital sitesin [place], [place], [place]. This disclosure is being madepursuant to the Care Everywhere program and may not contain all information available regarding this patient. Last updated 18.[facility] Allergies Active Allergy Reactions Criticality Noted Date [...] Department Care Team Description 05/31/2024 3:54 PM SHEET METAL ASSEMBLER AND RIVETER - 05/31/2024 7:23 PM SHEET METAL ASSEMBLER AND RIVETER Emergency [facility] EM[facility] [address] [place] [address] Discharge Disposition: Left Against Medical Advice/Discontinued Care [...] Comments Blood Pressure 115/86 05/31/2024 12:03 PM SHEET METAL ASSEMBLER AND RIVETER Pulse 110 05/31/2024 12:03 PM SHEET METAL ASSEMBLER AND RIVETER Temperature 37.6 C (99.6 F) 05/31/2024 12:03 PM SHEET METAL ASSEMBLER AND RIVETER Respiratory Rate 19 05/31/2024 12:03 PM SHEET METAL ASSEMBLER AND RIVETER Oxygen Saturation 99% 05/31/2024 12:03 PM SHEET METAL ASSEMBLER AND RIVETER Inhaled Oxygen Concentration - - Weight 56.7 kg (125 lb) 05/31/2024 12:03 PM SHEET METAL ASSEMBLER AND RIVETER Height 180.3 cm (5' 11 ) 05/31/2024 12:03 PM SHEET METAL ASSEMBLER AND RIVETER Body Mass Index 17.43 05/31/2024 12:03 PM SHEET METAL ASSEMBLER AND RIVETER Plan of Treatment Health Maintenance Due Date [...] to complete this topic MENINGOCOCCAL (Group B) VACC INE SHARED DECISION-MAKING Aged Out No longer eligibl e based on patient's age to complete this topic MENINGOCOCCAL GROUPS A/C/Y/W VACCINE Aged Out No longer eligible b ased on patient's age to complete this topic Procedures Procedure Name Priority Date/Time Associated Diagnosis Comments CULTURE STREP GROUP A Routine 05/31/2024 12:46 PM SHEET METAL ASSEMBLER AND RIVETER STREP A SCREEN DIRECT W RFLX STREP A CULTURE STAT 05/31/2024 12:46 PM SHEET METAL ASSEMBLER AND RIVETER SARS-COV-2 (COVID-19) FLU A/B RSV PCR RAPID STAT 05/31/2024 12:46 PM SHEET METAL ASSEMBLER AND RIVETER from Last 3 Months Results * SARS-COV-2 (COVID-19) FLU A/B RSV PCR RAPID (05/31/2024 12:46 PM SHEET METAL ASSEMBLER AND RIVETER) COVID-19 PCR Not detected Not detected 05/31/19 1:28 PM SHEET METAL ASSEMBLER AND RIVETER [facility] Influenza A PCR Not detected Not detected 05/31/2024 1:28 PM SHEET METAL ASSEMBLER AND RIVETER [facility] Influenza B PCR Not detected Not detected 05/31/2024 1:28 PM SHEET METAL ASSEMBLER AND RIVETER [facility] RSV PCR Not detected Not detected 05/31/2024 1:28 PM [facility] Microbiology SPECIMEN FROM NASOPHARYNGEAL STRUCTURE / Unknown Collection / Unknown 05/31/2024 12:46 PM SHEET METAL ASSEMBLER AND RIVETER 05/31/2024 12:49 PM SHEET METAL ASSEMBLER AND RIVETER Narrative [facility] - 05/31/2024 1:28 PM SHEET METAL ASSEMBLER AND RIVETER This nucleic acid amplification assay has been [...] EUA assay are available upon request. Yelitza [facility] ORDERABLES Performing Organization Address City/[facility]/ZIP Co de Phone Number [address] [address], [facility] [phone] * STREP A SCREEN DIRECT W RFLX STREP A CULTURE (05/31/2024 12:46 PM SHEET METAL ASSEMBLER AND RIVETER) Rapid Strep A Screen Negative Negative 05/31/2024 1:01 PM SHEET METAL ASSEMBLER AND RIVETER [facility] Microbiology ENTIRE THROAT (SURFACE REGION OF NECK) / Unknown Collection / Unknown 05/31/2024 12:46 PM SHEET METAL ASSEMBLER AND RIVETER 05/31/2024 12:49 PM SHEET METAL ASSEMBLER AND RIVETER Narrative [facility] - 05/31/2024 1:01 PM SHEET METAL ASSEMBLER AND RIVETER Rapid test for Group A Beta Streptococcus is NEGATIVE. A Negative, Direct Test for Group A Streptococcus will be followed with a confirmatory Throat Culture when 2 swabs have been submitted. Yelitza Catherine [facility] ORDERABLES Performing Organization Address [facility]/ZIP Co de Phone Number [address] [address], [facility] [phone] * CULTURE STREP GROUP A (05/31/2024 12:46 PM SHEET METAL ASSEMBLER AND RIVETER) Culture Negative for beta-hemolytic Streptococcus Group A AFSHNA 2024 5:25 PM SHEET METAL ASSEMBLER AND RIVETER [facility]CRO[facility]OLOG[facility] Microbiology ENTIRE THROAT (SURFACE REGION OF NECK) / Unknown Collection / Unknown 05/31/2024 12:46 PM SHEET METAL ASSEMBLER AND RIVETER 05/31/2024 12:49 PM SHEET METAL ASSEMBLER AND RIVETER Yelitza Stroud PA-C LAB - MICROBI OLOGY ORDERABLES [facility] [address] [place] [address], [facility] [phone] from Last 3 Months Care Teams Chairman And Chief Executive Officer Relationship Specialty Start Date End Date Unknown, Provider PCP - General 11/04/17
--- OUTSIDE RECORDS SUMMARY | 2024-07-24 02:18 | XMS_ITS | Referral Summary ---
Author Organization [facility] Address [address] [facility] [place] [address] Care Team Providers Care Answering Service Telephone Operator Name Role Phone Unknown, Provider Primary Care Provider Unavaila ble Source Comments [facility],non-owned Affiliates and Associated Physician Practices is amultiple site organization consisting of ambulatory clinics and hospital sitesin [place], [place], [place] and [place]. This disclosure is being madepursuant to the Care Everywhere program and may not contain all information available regarding this patient. Last updated 18.[facility] Encounters Date Type Department Care Team Description 05/31/2024 Travel 05/31/2024 3:54 PM DIPPING MACHINE OPERATOR - 05/31/2024 7:23 PM [facility] Emergency [facility] EMERGENCY DEPARTMENT [address] [place] [id number] Discharge Disposition: Left Against Medical Advice/Discontinued Care [...] Comments Blood Pressure 115/86 05/31/2024 12:03 PM DIPPING MACHINE OPERATOR Pulse 110 05/31/2024 12:03 PM DIPPING MACHINE OPERATOR Temperature 37.6 C (99.6 F) 05/31/2024 12:03 PM DIPPING MACHINE OPERATOR Respiratory Rate 19 05/31/2024 12:03 PM DIPPING MACHINE OPERATOR Oxygen Saturation 99% 05/31/2024 12:03 PM DIPPING MACHINE OPERATOR Inhaled Oxygen Concentration - - Weight 56.7 kg (125 lb) 05/31/2024 12:03 PM DIPPING MACHINE OPERATOR Height 180.3 cm (5' 11 ) 05/31/2024 12:03 PM DIPPING MACHINE OPERATOR Body Mass Index 17.43 05/31/2024 12:03 PM DIPPING MACHINE OPERATOR Plan of Treatment Not on file Procedures Procedure Name Priority Date/Time Associated Diagnosis Comments CULTURE STREP GROUP A Routine 05/31/2024 12:46 PM DIPPING MACHINE OPERATOR STREP A SCREEN DIRECT W RFLX STREP A CULTURE STAT 05/31/2024 12:46 PM DIPPING MACHINE OPERATOR SARS-COV-2 (COVID-19) FLU A/B RSV PCR RAPID STAT 05/31/2024 12:46 PM DIPPING MACHINE OPERATOR from Last 3 Months Results * SARS-COV-2 (COVID-19) FLU A/B RSV PCR RAPID (05/31/2024 12:46 PM DIPPING MACHINE OPERATOR) COVID-19 PCR Not detected Not detected 05/31/19 25 1:28 PM DIPPING MACHINE OPERATOR [facility] Influenza A PCR Not detected Not detected 05/31/2024 1:28 PM [facility] Influenza B PCR Not detected Not detected 05/31/2024 1:28 PM [facility] RSV PCR Not detected Not detected 05/31/2024 1:28 PM [facility] Microbiology SPECIMEN FROM NASOPHARYNGEAL STRUCTURE / Unknown Collection / Unknown 05/31/2024 12:46 PM DIPPING MACHINE OPERATOR 05/31/2024 12:49 PM DIPPING MACHINE OPERATOR [facility] - 05/31/2024 1:28 PM DIPPING MACHINE OPERATOR This nucleic acid amplification assay has been [...] EUA assay are available upon request. Yelitza [employer] ORDERABLES [address] [address], [facility] [phone] * STREP A SCREEN DIRECT W RFLX STREP A CULTURE (05/31/2024 12:46 PM DIPPING MACHINE OPERATOR) [facility] Rapid Strep A Screen Negative Negative 05/31/2024 1:01 PM [facility] Microbiology ENTIRE THROAT (SURFACE REGION OF NECK) / Unknown Collection / Unknown 05/31/2024 12:46 PM DIPPING MACHINE OPERATOR 05/31/2024 12:49 PM DIPPING MACHINE OPERATOR [facility] - 05/31/2024 1:01 PM DIPPING MACHINE OPERATOR Rapid test for Group A Beta Streptococcus is NEGATIVE. A Negative, Direct Test for Group A Streptococcus will be followed with a confirmatory Throat Culture when 2 swabs have been submitted. Yelitza GOMEZ-C LAB - MICROBI OLOGY ORDERABLES [facility] [address] [place] [address], [facility] [phone] * CULTURE STREP GROUP A (05/31/2024 12:46 PM DIPPING MACHINE OPERATOR) Culture Negative for beta-hemolytic Streptococcus Group A AFSHAN 2024 5:25 PM DIPPING MACHINE OPERATOR [facility] Microbiology ENTIRE THROAT (SURFACE REGION OF NECK) / Unknown Collection / Unknown 05/31/2024 12:46 PM DIPPING MACHINE OPERATOR 05/31/2024 12:49 PM DIPPING MACHINE OPERATOR Yelitza Stroud PA-C LAB - MICROBI OLOGY ORDERABLES [facility] [address] [place] [address], [facility] [phone] from Last 3 Months Care Teams Answering Service Telephone Operator Relationship Specialty Start Date End Date Unknown, Provider PCP - General 11/04/17
[2024-07-24 02:22] VITALS: BP 148/93; PULSE 78; RESP 16; TEMP 36.7; O2SAT 100
[2024-07-24 06:34] LABS: Basophils Percent Auto 0.1 % (0.2-1.2); Eosinophils Absolute Auto 0.1 K/mm3 (0-0.3); Eosinophils Percent Auto 0.9 % (0-4.4); Hematocrit 41.2 % (42.0-52.0); Hemoglobin 13.8 g/dL (14.0-18.0); Immature Granulocyte Absolute 0.04 K/mm3 (0.00-0.031); Immature Granulocyte Percent A 0.5 % (0-0.5); Lymphocytes Absolute Auto 2.38 K/mm3 (0.9-3.2); Lymphocytes Percent Auto 31.6 % (18.3-44.2); Mean Corpuscular HGB Conc 33.5 g/dl (32-36); Mean Corpuscular Hemoglobin 29.1 pg (26-34); Mean Corpuscular Volume 86.9 fl (80-100); Monocytes Absolute Auto 0.6 K/mm3 (0.1-0.6); Monocytes Percent Auto 8.1 % (2.6-8.5); Neutrophils Absolute Auto 4.4 K/mm3 (1.3-6.7); Neutrophils Percent Auto 58.8 % (45.5-73.1); Platelet Count Result 237 k/mm3 (150-375); Red Blood Count 4.74 M/mm3 (4.6-6.20); Red Cell Distribution Width 13.5 % (11.5-14.5); White Blood Count 7.5 K/mm3 (4.5-10.0)
[2024-07-24 06:42] LABS: Add Urine Microscopic? YES; Appearance Urine Clear (Clear); Bacteria Urine None Seen /hpf; Bilirubin Urine Negative (Negative); Blood Urine 1+ (Negative); Color Urine Yellow (Yellow); Glucose Urine UA Negative (Negative); Ketones Urine Negative (Negative); Leukocyte Esterase Ur Negative LEU/UL (Negative); Nitrate Urine Negative (Negative); Non Pathogenic Casts 0-2; Protein Urine Trace mg/dL (Negative); RBC Urine 0-2 /hpf (0-2); Specific Grav Ur 1.022 (1.001-1.035); Squamous Epithelial Cell Urine None Seen /hpf (Few); Urobilinogen Urine 0.2 mg/dL (<2.0); WBC Urine 0-5 /hpf (0-3); pH Urine 5.5 (5.0-9.0)
[2024-07-24 06:45] LABS: Alanine Aminotransferase 26 U/L (6-50); Albumin Level 4.5 g/dL (3.5-5.1); Alkaline Phosphatase 57 U/L (38-126); Anion Gap 10 mmol/L (4-12); Aspartate Amino Transferase 32 U/L (17-59); Bilirubin,Total 0.6 mg/dL (0.2-1.3); Blood Urea Nitrogen 17 mg/dL (9-20); Calcium 9.2 mg/dL (8.4-10.2); Carbon Dioxide 23 mmol/L (22-30); Chloride 107 mmol/L (98-107); Estimated CRCL calculation 88 ml/min; Estimated Glomerular Filt Rate > 60; Glucose 109 mg/dL (65-110); Lipase 64 U/L (23-300); Potassium 4.2 mmol/L (3.4-5.0); Sodium 140 mmol/L (137-145)
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
--- OUTSIDE RECORDS SUMMARY | 2024-07-24 07:28 | XMS_ITS | CONTINUITY OF CARE DOCUMENT ---
Author Name belinda trevino Address Unknown Organization [facility] Address [address] [place] [address] Phone [phone] Care Team Providers Care Title Vehicle Service Attendant Name Role Phone Gilbert BERNABE, Giovani Unavailable MARK HARRINGTON MD Unavailable [phone] MARK HARRINGTON MD Unavailable [phone] INSURANCE PROVIDERS Payer name Policy type / Coverage type Mark red alliance party ID [place] MEDICAID (2) Medicaid [id number]
--- OUTSIDE RECORDS SUMMARY | 2024-07-24 07:28 | XMS_ITS | Referral Summary ---
Author Organization [facility] Address [address] [place] [address] Care Team Providers Care Dough Mixer Helper Name Role Phone Unknown, Provider Primary Care Provider Unavaila ble Source Comments [facility],non-owned Affiliates and Associated Physician Practices is amultiple site organization consisting of ambulatory clinics and hospital sitesin [place], [place], [place] and [place]. This disclosure is being madepursuant to the Care Everywhere program and may not contain all information available regarding this patient. Last updated 18.[facility] Encounters Date Type Department Care Team Description 05/31/2024 Travel 05/31/2024 3:54 PM PROJECT COORDINATOR RN - 05/31/2024 7:23 PM [facility] Emergency [facility] EMERGENCY DEPARTMENT [address] [place] [id number] Discharge Disposition: Left Against Medical Advice/Discontinued Care [...] Comments Blood Pressure 115/86 05/31/2024 12:03 PM PROJECT COORDINATOR RN Pulse 110 05/31/2024 12:03 PM PROJECT COORDINATOR RN Temperature 37.6 C (99.6 F) 05/31/2024 12:03 PM PROJECT COORDINATOR RN Respiratory Rate 19 05/31/2024 12:03 PM PROJECT COORDINATOR RN Oxygen Saturation 99% 05/31/2024 12:03 PM PROJECT COORDINATOR RN Inhaled Oxygen Concentration - - Weight 56.7 kg (125 lb) 05/31/2024 12:03 PM PROJECT COORDINATOR RN Height 180.3 cm (5' 11 ) 05/31/2024 12:03 PM PROJECT COORDINATOR RN Body Mass Index 17.43 05/31/2024 12:03 PM PROJECT COORDINATOR RN Plan of Treatment Not on file Procedures Procedure Name Priority Date/Time Associated Diagnosis Comments CULTURE STREP GROUP A Routine 05/31/2024 12:46 PM PROJECT COORDINATOR RN STREP A SCREEN DIRECT W RFLX STREP A CULTURE STAT 05/31/2024 12:46 PM PROJECT COORDINATOR RN SARS-COV-2 (COVID-19) FLU A/B RSV PCR RAPID STAT 05/31/2024 12:46 PM PROJECT COORDINATOR RN from Last 3 Months Results * SARS-COV-2 (COVID-19) FLU A/B RSV PCR RAPID (05/31/2024 12:46 PM PROJECT COORDINATOR RN) COVID-19 PCR Not detected Not detected 05/31/19 25 1:28 PM PROJECT COORDINATOR RN [facility] Influenza A PCR Not detected Not detected 05/31/2024 1:28 PM [facility] Influenza B PCR Not detected Not detected 05/31/2024 1:28 PM [facility] RSV PCR Not detected Not detected 05/31/2024 1:28 PM [facility] Microbiology SPECIMEN FROM NASOPHARYNGEAL STRUCTURE / Unknown Collection / Unknown 05/31/2024 12:46 PM PROJECT COORDINATOR RN 05/31/2024 12:49 PM PROJECT COORDINATOR RN [facility] - 05/31/2024 1:28 PM PROJECT COORDINATOR RN This nucleic acid amplification assay has been [...] EUA assay are available upon request. Yelitza [employer] ORDERABLES [address] [address], [facility] [phone] * STREP A SCREEN DIRECT W RFLX STREP A CULTURE (05/31/2024 12:46 PM PROJECT COORDINATOR RN) [facility] Rapid Strep A Screen Negative Negative 05/31/2024 1:01 PM [facility] Microbiology ENTIRE THROAT (SURFACE REGION OF NECK) / Unknown Collection / Unknown 05/31/2024 12:46 PM PROJECT COORDINATOR RN 05/31/2024 12:49 PM PROJECT COORDINATOR RN [facility] - 05/31/2024 1:01 PM PROJECT COORDINATOR RN Rapid test for Group A Beta Streptococcus is NEGATIVE. A Negative, Direct Test for Group A Streptococcus will be followed with a confirmatory Throat Culture when 2 swabs have been submitted. Yelitza GOMEZ-C LAB - MICROBI OLOGY ORDERABLES [facility] [address] [place] [address], [facility] [phone] * CULTURE STREP GROUP A (05/31/2024 12:46 PM PROJECT COORDINATOR RN) Culture Negative for beta-hemolytic Streptococcus Group A AFSHAN 2024 5:25 PM PROJECT COORDINATOR RN [facility] Microbiology ENTIRE THROAT (SURFACE REGION OF NECK) / Unknown Collection / Unknown 05/31/2024 12:46 PM PROJECT COORDINATOR RN 05/31/2024 12:49 PM PROJECT COORDINATOR RN Yelitza Stroud PA-C LAB - MICROBI OLOGY ORDERABLES [facility] [address] [place] [address], [facility] [phone] from Last 3 Months Care Teams Dough Mixer Helper Relationship Specialty Start Date End Date Unknown, Provider PCP - General 11/04/17
--- OUTSIDE RECORDS SUMMARY | 2024-07-24 07:28 | XMS_ITS | Clinical Summary ---
Author Organization [facility] Address [address] [place] [address] Care Team Providers Care Cold Press Operator Name Role Phone Unknown, Provider Primary Care Provider Unavaila ble Source Comments [facility],non-owned Affiliates and Associated Physician Practices is amultiple site organization consisting of ambulatory clinics and hospital sitesin [place], [place], [place] and [place]. This disclosure is being madepursuant to the Care Everywhere program and may not contain all information available regarding this patient. Last updated 18.[facility] Allergies Active Allergy Reactions Criticality Noted Date [...] Department Care Team Description 05/31/2024 3:54 PM EMBRYOLOGY TEACHER - 05/31/2024 7:23 PM EMBRYOLOGY TEACHER Emergency [facility] EMERGENCY DEPARTMENT [address] [place] [address] Discharge Disposition: Left Against Medical Advice/Discontinued Care [...] Comments Blood Pressure 115/86 05/31/2024 12:03 PM EMBRYOLOGY TEACHER Pulse 110 05/31/2024 12:03 PM EMBRYOLOGY TEACHER Temperature 37.6 C (99.6 F) 05/31/2024 12:03 PM EMBRYOLOGY TEACHER Respiratory Rate 19 05/31/2024 12:03 PM EMBRYOLOGY TEACHER Oxygen Saturation 99% 05/31/2024 12:03 PM EMBRYOLOGY TEACHER Inhaled Oxygen Concentration - - Weight 56.7 kg (125 lb) 05/31/2024 12:03 PM EMBRYOLOGY TEACHER Height 180.3 cm (5' 11 ) 05/31/2024 12:03 PM EMBRYOLOGY TEACHER Body Mass Index 17.43 05/31/2024 12:03 PM EMBRYOLOGY TEACHER Plan of Treatment Health Maintenance Due Date [...] STREP GROUP A Routine 05/31/2024 12:46 PM EMBRYOLOGY TEACHER STREP A SCREEN DIRECT W RFLX STREP A CULTURE STAT 05/31/2024 12:46 PM EMBRYOLOGY TEACHER SARS-COV-2 (COVID-19) FLU A/B RSV PCR RAPID STAT 05/31/2024 12:46 PM EMBRYOLOGY TEACHER from Last 3 Months Results * SARS-COV-2 (COVID-19) FLU A/B RSV PCR RAPID (05/31/2024 12:46 PM EMBRYOLOGY TEACHER) COVID-19 PCR Not detected Not detected 05/31/19 1:28 PM EMBRYOLOGY TEACHER [facility] Influenza A PCR Not detected Not detected 05/31/2024 1:28 PM EMBRYOLOGY TEACHER [facility] Influenza B PCR Not detected Not detected 05/31/2024 1:28 PM EMBRYOLOGY TEACHER [facility] RSV PCR Not detected Not detected 05/31/2024 1:28 PM [facility] Microbiology SPECIMEN FROM NASOPHARYNGEAL STRUCTURE / Unknown Collection / Unknown 05/31/2024 12:46 PM EMBRYOLOGY TEACHER 05/31/2024 12:49 PM EMBRYOLOGY TEACHER Narrative [facility] - 05/31/2024 1:28 PM EMBRYOLOGY TEACHER This nucleic acid amplification assay has been [...] EUA assay are available upon request. [facility] ORDERABLES Performing Organization Address City/[facility]/ZIP Co de Phone Number [address] [address], [facility] [phone] * STREP A SCREEN DIRECT W RFLX STREP A CULTURE (05/31/2024 12:46 PM EMBRYOLOGY TEACHER) Rapid Strep A Screen Negative Negative 05/31/2024 1:01 PM EMBRYOLOGY TEACHER [facility] Microbiology ENTIRE THROAT (SURFACE REGION OF NECK) / Unknown Collection / Unknown 05/31/2024 12:46 PM EMBRYOLOGY TEACHER 05/31/2024 12:49 PM EMBRYOLOGY TEACHER Narrative [facility] - 05/31/2024 1:01 PM EMBRYOLOGY TEACHER Rapid test for Group A Beta Streptococcus is NEGATIVE. A Negative, Direct Test for Group A Streptococcus will be followed with a confirmatory Throat Culture when 2 swabs have been submitted. Yelitza Catherine [facility] ORDERABLES Performing Organization Address [facility]/ZIP Co de Phone Number [address] [address], [facility] [phone] * CULTURE STREP GROUP A (05/31/2024 12:46 PM EMBRYOLOGY TEACHER) Culture Negative for beta-hemolytic Streptococcus Group A AFSHAN 2024 5:25 PM EMBRYOLOGY TEACHER [facility] Microbiology ENTIRE THROAT (SURFACE REGION OF NECK) / Unknown Collection / Unknown 05/31/2024 12:46 PM EMBRYOLOGY TEACHER 05/31/2024 12:49 PM EMBRYOLOGY TEACHER Yelitza Stroud PA-C LAB - MICROBI OLOGY ORDERABLES [facility] [address] [place] [address], [facility] [phone] from Last 3 Months Care Teams Cold Press Operator Relationship Specialty Start Date End Date Unknown, Provider PCP - General 11/04/17
--- OUTSIDE RECORDS SUMMARY | 2024-07-24 07:28 | XMS_ITS | Patient Health Summary ---
Author Organization [facility] Ar[facility] Address [address] [place] [address] Care Team Providers Care Crystal Attacher Name Role Phone Unknown, Provider Primary Care Provider Unavaila ble Note from [facility],non-owned Affiliates and Associated Physician Practices is amultiple site organization consisting of ambulatory clinics and hospital sitesin [place], [place], [place] and [place]. This disclosure is being madepursuant to the Care Everywhere program and may not contain all information available regarding this patient. Last updated 18.[facility] Allergies * Acetaminophen(Rash) -Medium Criticality * Propoxyphene [...] Comments Blood Pressure 115/86 05/31/2024 12:03 PM [employer] Pulse 110 05/31/2024 12:03 PM [employer] Temperature 37.6 C (99.6 F) 05/31/2024 12:03 PM [employer] Respiratory Rate 19 05/31/2024 12:03 PM [employer] Oxygen Saturation 99% 05/31/2024 12:03 PM [employer] Inhaled Oxygen Concentration - - Weight 56.7 kg (125 lb) 05/31/2024 12:03 PM [employer] Height 180.3 cm (5' 11 ) 05/31/2024 12:03 PM [employer] Body Mass Index 17.43 05/31/2024 12:03 PM [employer] Procedures * CULTURE STREP GROUP A(Performed 05/31/2024) * STREP A SCREEN DIRECT W RFLX STREP A CULTURE(Performed 05/31/2024) * SARS-COV-2 (COVID-19) FLU A/B RSV PCR RAPID(Performed 05/31/2024) Results * SARS-COV-2 (COVID-19) FLU A/B RSV PCR RAPID (05/31/2024 12:46 PM [employer]) COVID-19 PCR Not detected Not detected 05/31/19 1:28 PM [facility] Influenza A PCR Not detected Not detected 05/31/2024 1:28 PM [facility] Influenza B PCR Not detected Not detected 05/31/2024 1:28 PM [facility] RSV PCR Not detected Not detected 05/31/2024 1:28 PM [facility] Microbiology SPECIMEN FROM NASOPHARYNGEAL STRUCTURE / Unknown Collection / Unknown 05/31/2024 12:46 PM [employer] 05/31/2024 12:49 PM [employer] Narrative [facility] - 05/31/2024 1:28 PM [employer] This nucleic acid amplification assay has been [...] assay are available upon request. Yelitza Stroud MDTequila Mobile [facility] ORDERABLES Performing Organization Address [facility]/ZIP Co de Phone Number [address] [phone], [facility] [phone] * STREP A SCREEN DIRECT W RFLX STREP A CULTURE (05/31/2024 12:46 PM [employer]) Rapid Strep A Screen Negative Negative 05/31/2024 1:01 PM [employer] [facility] Microbiology ENTIRE THROAT (SURFACE REGION OF NECK) / Unknown Collection / Unknown 05/31/2024 12:46 PM [employer] 05/31/2024 12:49 PM [employer] Narrative [facility] - 05/31/2024 1:01 PM [employer] Rapid test for Group A Beta Streptococcus is NEGATIVE. A Negative, Direct Test for Group A Streptococcus will be followed with a confirmatory Throat Culture when 2 swabs have been submitted. Yelitza VillalobosCover MDAllclasses [facility] [employer] ORDERABLES Performing Organization Address [facility] Co de Phone Number [address] [phone], [facility] [phone] * CULTURE STREP GROUP A (05/31/2024 12:46 PM [employer]) Culture Negative for beta-hemolytic Streptococcus Group A AFSHAN 2024 5:25 PM [employer]CH[employer] [facility] Microbiology ENTIRE THROAT (SURFACE REGION OF NECK) / Unknown Collection / Unknown 05/31/2024 12:46 PM [employer] 05/31/2024 12:49 PM [employer] Yelitza Alexander [facility] ORDERABLES [facility] [address] [place] [address], [facility] [phone] Care Teams Crystal Attacher Relationship Specialty Start Date End Date Unknown, Provider PCP - General 11/04/17
[2024-07-24] MEDS: HYDROmorphone HCL INJ (*CRX) 1 MG/ML SYR IV PUSH (07:39)
[2024-07-24] MEDS: LACTATED RINGERS 1,000 ML 999 ML IV CONT (07:40)
[2024-07-24 07:42] VITALS: BP 135/77; PULSE 66; RESP 15; O2SAT 99
== END 2024-07-24 09:36 | disposition home or self-care (01) ==
PROVIDERS: Student in an Organized Health Care Education/Training Program; Emergency Provider Emergency Medicine; PCP Internal Medicine Infectious Disease
DX: K57.32 Diverticulitis of large intestine without perforation or abscess without bleeding (principal); K52.9 Noninfective gastroenteritis and colitis, unspecified
CPT/HCPCS: 36415; 71275; 74174; 80053; 81001; 83690; 85025; 96361; 96374; 99284; J1171; J7120; Q9967

== ENCOUNTER 2024-09-29 01:49 | Day surgery (SDC) | payer OTHER, SELFPAY ==
--- NOTE | 2024-09-21 15:04 | PC.NURSE ---
Report to the Outpatient Waiting Room, entrance under the green pavilion located off [facility], at time _0800_ on date _[id number]_. Planned Procedure Time: _1000_.? Time changes happen often and if your time is changed the preop area will call you the afternoon before. - You and your visitor will be asked to self-screen and do not enter if you have any COVID symptoms. Please call surgeon if you need to reschedule. - A mask is optional within the hospital at this time. Patients may have clear liquids (water, carbonated beverages, clear teas, apple juice) until 3 hours prior to surgery with a maximum of 20 ounces. - No food from midnight until time of surgery and no smoking, or chewing tobacco (or any form of nicotine). No chewing gum, candy or mints. Take only the following medications with a SIP of water on the morning of surgery: ___None____ DO NOT STOP ANY OF YOUR OTHER PRESCRIPTION MEDICATIONS PRIOR TO SURGERY EXCEPT THE FOLLOWING Hold all vitamins and supplements for 3 days per anesthesiologist. Medications to discontinue per physician ___Ibuprofen and Naproxen Date to take last wxsg__[phone]____ Please no make-up, nail pashto, hairspray, perfume, deodorant, or body powder the day of surgery.? No jewelry (including any body piercings) or valuables the day of surgery, leave them at home.? Please take a shower or bath the night before, or the morning of, surgery with an antibacterial soap.? Wear comfortable, loose fitting clothing.? - Jewelry must be removed prior to entering the operating room.? Rings and piercings that are not removed may be cut off. - The hospital will not accept responsibility for valuables.? - Please leave all valuables, including medications, at home the day of surgery. If you are going home after surgery, a licensed tow motor driver must drive you home.? - NO public transportation without another adult if you receive anesthesia. - We recommend that an adult stay with you for 24 hours following discharge. - We also recommend that you do not drive, make important decision, drink alcoholic beverages, or take any drugs that were not prescribed by your health care provider for at least 24 hours after your discharge time. Follow any additional instructions given to you from your surgeon. Telephone instructions given to __Teddy___and asked if any additional questions and then verbalized understanding. Patient advised to call surgeon office or pre surgery nurse liaison [phone] if any additional questions.
[2024-09-29] VITALS (13 sets, daily range): BP systolic 117–144; BP diastolic 61–91; PULSE 63–92; RESP 12–20; TEMP 36.2–36.5; O2SAT 94–100; BMI 29.8
--- OUTSIDE RECORDS SUMMARY | 2024-09-29 01:51 | XMS_ITS | Data Portability ---
Author Organization SHARI STEVENCarley Boswell Address [address] [place] [address] Assessment No assessment recorded. Plan of Treatment Reminders Order Date Submit Date Provider Last Modified By Organization Details Last Modified Time Details Appointments None recorded. Lab creatinine, serum or plasma 2023 024 [facility] [address], [address], [place], [address], 4 06:21:03 urinalysis, dipstick 2023 024 [facility], [address], [address], [place], [address], 4 06:21:05 PSA, total, serum or plasma 2023 024 [facility], [address], [address], [place], [address], 4 09:19:10 urinalysis, dipstick 2023 024 [facility], [address], [address], [place], [address], 4 13:11:13 CBC w/ auto diff 2023 024 [facility], [address], [address], [place], [address], 4 13:11:14 CMP, serum or plasma 2023 024 [facility], [address], [address], [place], [address], 4 13:11:12 lipid panel, serum 2023 024 [facility], [address], [address], [place], [address], 4 13:11:10 HbA1c (hemoglobin A1c), blood 2023 024 [facility], [address], [address], [place], [address], 4 09:19:09 albumin/cre atinine, mass ratio, urine 2023 024 [facility], [address], [address], [place], [address], 4 09:19:08 HbA1c (hemoglobin A1c), blood 2022 023 [facility] In-Office Order, Internal Use Only DO Not Attach Compendium DO Not Attach Compendium, Do Not Delete/merge, [id number] 3 12:25:03 glucose, fingerstick , blood 2022 023 [facility] In-Office Order, Internal Use Only DO Not Attach Compendium DO Not Attach Compendium, Do Not Delete/merge, [id number] 3 12:25:03 CMP, serum or plasma 2022 023 [facility], [address], [address], [place], [address], 3 12:48:38 HbA1c (hemoglobin A1c), blood 2022 023 [facility], [address], [address], [place], [address], 4 09:37:12 microalbumi n/creatinin e, mass ratio, urine 2022 023 [facility], [address], [address], [place], [address], 4 09:37:17 noninvasive colorectal cancer DNA + occult blood screening, QL, stool 2022 023 [facility] (Cologuard Orders Only), [address], [address], [place], [address], 3 09:42:03 Referral diabetic ophthalmolo gy referral - HBA1C 5.9% 2023 024 [facility], [address], [place], [address], 4 14:49:43 cardiologis t referral - Please call patient for appointment , thanks! [address] [facility], [address], [address], [place], [address], 5 10:22:10 diabetic ophthalmolo gy referral - Please call patient for appointment , thanks! 2022 024 [facility], [address], [place], [address], 4 15:09:06 Procedures None recorded. Surgeries None recorded. Imaging US, kidney - DM, elevated Creatinine 2023 024 [facility] (One Call Scheduling), [address], [place], [address], 4 12:52:30 Medication Orders rosuvastati n 20 mg tablet 2023 024 [facility] #[id number], [address], [place], [place], [id number], 4 16:17:15 aspirin 81 mg tablet,raman yed release 2023 024 [facility] #[id number], [address], [place], [place], [id number], 4 10:37:18 Blood Glucose Test strips 2023 024 [facility] #[id number], [address], [place], [place], [id number], 4 10:37:18 Blood Glucose Test strips 2023 024 [facility][id number], [address], [place], [place], [id number], 4 12:27:29 Blood Glucose Test strips 2022 023 [facility] #42639, [address], [place], [place], [id number], 3 18:29:45 alcohol swabs 2022 023 [facility] #65835, [address], [place], [place], [id number], 3 12:26:24 Blood Glucose Test strips 2022 023 [facility], [address], [place], [place], [id number], 3 13:33:11 Patient TargetsNo targets recorded. Patient Instructions Encounter Date Encounter Id Patient Instructions Last Modified By Organization Details Last Modified Time 11/28/2022 [id number] learning about t ype 2 diabetes [facility] Not available 11/28/2022 12:48:34 type 2 diabetes: care instructions [facility] Not available 11/28/2022 12:48:34 09/24/2023 [id number] A healthy lifestyle: care instructions oaelyo Not [...] controlled oaelyo Not available 09/24/2023 10:17:20 11/23/2023 [id number] Renal US Start Rosuvastatin Monitor your blood pressure Low CHO, low saturated fat diet Low salt diet Labs Note from the Building And Grounds Supervisor Follow up in 4 weeks oavadim Not available 11/23/2023 16:21:15 Reason for Referral Diabetic Ophthalmology Refer ral for Prediabetes Please call patient for appointment, thanks! 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 Referring Physician: Abraham Estrada, Internal Medicine, Encounter Date: 06/15/2023 Diabetic Ophthalmology Refer ral for Type 2 diabetes mellitus without complication HBA1C 5.9% Referring Physician: Catrcahito Jon, Internal Medicine, Encounter Date: 11/23/2023 Results [...] of 10,00 0 indiv [place]ual s at [place] risk for color ectal cance r [...] asymp tomat ic indiv idual s at [place] risk for color ectal cance r. [...] 112:1 016-1 030. TEST DESCR IPTIO N: [place] site algor ithmi c emi sis of [...] years or older , who are at [facility] for color ectal cance r (CRC) . Colog uard has been appro stephanie for use by the [place] FDA. The perfo rmanc e of Colog uard was estab lishe d in a cross secti onal study of [facility] adult s aged 50-84 . Colog uard [...] adeno ma (incl uding sessi le oliver kamryn polyp s great er than or equal to 1cm diame ter) [20%] or non- advan rosalina adeno ma [31%] ; or no color ectal neopl hong [45%] . These estim ates are deriv ed from a prosp ectiv e cross -sect ional scree jeanette study of 0 indiv idual s at [facility] risk for color ectal cance [...] at www.c lucrecia diaz.c om. Not Available [facility] (Cologuard Orders Only) [address], [place], [address], 12/21/2022 09:42:03 02/10/20 23 02/09/2023 gluco se, finge rstic k, blood Blood Glucose: mg/dl 103 Not Available In-Off ice Order Internal Use Only DO Not Attach Compendium DO Not Attach Compendium, Do Not Delete/merge, [id number] 02/09/2023 12:22:03 02/10/20 23 02/09/2023 HbA1c (hemo globi n A1c), blood HbA1c 5.3 % Not Available In-Office Order Internal Use Only DO Not Attach Compendium DO Not Attach Compendium, Do Not Delete/merge, [id number] 02/09/2023 12:21:45 06/12/19 24 06/12/2023 HEMOG LOBIN A1C hemoglobin A1C 5.9 % 4.8-5. 6 above high normal Predi abete s: 5.7 - 6.4 Diabe bella: >6.4 Glyce afshan contr ol for adult s with diabe bella: <7.0 Not Available [facility] [address] [place], [address], 06/13/2023 06:26:28 06/12/19 24 06/13/2023 DIABE BELLA PATIE NT EDUCA TION pdf . Not Available [facility] [address] [place], [address], 06/13/2023 06:26:27 10/15/19 24 10/16/2023 ALBUM IN/CR EATIN INE RATIO ,URIN E creatinine, urine 84.0 mg/dL notest ab. Not Available [facility] ([facility]) [address] [place], [address], 10/16/2023 09:19:08 10/15/1910/16/2023 ALBUM IN/CR EATIN INE RATIO ,URIN E albumin, urine 3.8 ug/mL notest ab. Not Available [facility] ([facility]) [address] [place], [address], 10/16/2023 09:19:08 10/15/1910/16/2023 ALBUM IN/CR EATIN INE RATIO ,URIN E alb/creat ratio 5 mg/g_ creat 0-29 Kathia l: 0 - 29 Moder ately incre ased: 30 - 300 Sever arturo incre ased: >300 Not Available [facility] ([facility]) [address] [place], [address], 10/16/2023 09:19:08 10/15/1910/16/2023 HEMOG LOBIN A1C hemoglobin A1C 5.8 % 4.8-5. 6 above high normal Predi abete s: 5.7 - 6.4 Diabe bella: >6.4 Glyce afshan contr ol for adult s with diabe bella: <7.0 Not Available [facility] ([facility]) [address] [place], [address], 10/16/2023 09:19:09 10/15/1910/16/2023 PROST ATE-S PECIF IC [...] t be inter prete d as absol essence evide nce of the prese nce or absen ce of daniel antno . Not Available [facility] ([facility]) [address] [place], [address], 10/16/2023 09:19:10 10/15/19 24 10/16/2023 LIPID PANEL cholesterol, total 205 mg/dL 100-19 9 above high normal Not Available [facility] ([facility]) [address] [place], [address], 10/16/2023 13:11:10 10/15/19 24 10/16/2023 LIPID PANEL triglyceride s 52 mg/dL 0-149 Not Available [facility] ([facility]) [address] [place], [address], 10/16/2023 13:11:10 10/15/19 24 10/16/2023 LIPID PANEL HDL cholesterol 66 mg/dL >39 Not Available [facility] [address] [place], [address], 10/16/2023 13:11:10 10/15/19 24 10/16/2023 LIPID PANEL VLDL cholesterol dipti 9 mg/dL 5-40 Not Available [facility] ([facility]) [address] [place], [address], 10/16/2023 13:11:10 10/15/19 24 10/16/2023 LIPID PANEL LDL chol calc ([facility]) 130 mg/dL 0-99 above high normal Not Available [facility] ([facility]) [address] [place], [address], 10/16/2023 13:11:10 10/15/19 24 10/16/2023 COMP. METAB OLIC PANEL (14) glucose 107 mg/dL 70-99 above high normal Not Available [facility] ([facility]) [address] [place], [address], 10/16/2023 13:11:11 10/15/19 24 10/16/2023 COMP. METAB OLIC PANEL (14) BUN 23 mg/dL 6-24 Not Available [facility] ([facility]) [address] [place], [address], 10/16/2023 13:11:11 10/15/19 24 10/16/2023 COMP. METAB OLIC PANEL (14) creatinine 1.33 mg/dL 0.76-1 .27 above high normal Not Available [facility] ([facility]) [address] [facility] [place], [address], 10/16/2023 13:11:11 10/15/19 24 10/16/2023 COMP. METAB OLIC PANEL (14) eGFR 49 mL/mi n/1.7 3 >59 below low normal Not Available [facility] ([facility]) [address] [place], [address], 10/16/2023 13:11:11 10/15/19 24 10/16/2023 COMP. METAB OLIC PANEL (14) BUN/creatini ne ratio 17 9-20 Not Available [facility] ([facility]) [address] [facility] [place], [address], 10/16/2023 13:11:11 10/15/19 24 10/16/2023 COMP. METAB OLIC PANEL (14) sodium 141 mmol/ L 134-14 4 Not Available [facility] ([facility]) [address] [facility] [place], [address], 10/16/2023 13:11:11 10/15/19 24 10/16/2023 COMP. METAB OLIC PANEL (14) potassium 4.5 mmol/ L 3.5-5. 2 Not Available [facility] ([facility]) [address] [facility], [place], [address], 10/16/2023 13:11:11 10/15/19 24 10/16/2023 COMP. METAB OLIC PANEL (14) chloride 106 mmol/ L 96-106 Not Available [facility] ([facility]) [address] [place], [address], 10/16/2023 13:11:11 10/15/19 24 10/16/2023 COMP. METAB OLIC PANEL (14) carbon dioxide, total 18 mmol/ L 20-29 below low normal Not Available [facility] ([facility]) [address] [place], [address], 10/16/2023 13:11:11 10/15/19 24 10/16/2023 COMP. METAB OLIC PANEL (14) calcium 9.4 mg/dL 8.7-10 .2 Not Available [facility] ([facility]) [address] [place], [address], 10/16/2023 13:11:11 10/15/19 24 10/16/2023 COMP. METAB OLIC PANEL (14) protein, total 7.6 g/dL 6.0-8. 5 Not Available [facility] [address] [facility] [place], [address], 10/16/2023 13:11:11 10/15/19 24 10/16/2023 COMP. METAB OLIC PANEL (14) albumin 4.5 g/dL 4.1-5. 1 Not Available [facility] [address] [facility] [place], [address], 10/16/2023 13:11:11 10/15/19 24 10/16/2023 COMP. METAB OLIC PANEL (14) globulin, total 3.1 g/dL 1.5-4. 5 Not Available [facility] [address] [facility] [place], [address], 10/16/2023 13:11:11 10/15/19 24 10/16/2023 COMP. METAB OLIC PANEL (14) A/G ratio 1.5 1.2-2. 2 Not Available [facility] ([facility]) [address] [facility], [place], [address], 10/16/2023 13:11:11 10/15/19 24 10/16/2023 COMP. METAB OLIC PANEL (14) bilirubin, total 0.3 mg/dL 0.0-1. 2 Not Available [facility] ([facility]) [address] [facility], [place], [address], 10/16/2023 13:11:11 10/15/19 24 10/16/2023 COMP. METAB OLIC PANEL (14) alkaline phosphatase 57 IU/L 44-121 Not Available [facility]) [address] [facility], [place], [address], 10/16/2023 13:11:11 10/15/19 24 10/16/2023 COMP. METAB OLIC PANEL (14) AST (SGOT) 29 IU/L 0-40 Not Available [facility] ([facility]) [address] [facility], [place], [address], 10/16/2023 13:11:11 10/15/19 24 10/16/2023 COMP. METAB OLIC PANEL (14) ALT (SGPT) 24 IU/L 0-44 Not Available [facility] ([facility]) [address] [facility], [place], [address], 10/16/2023 13:11:11 10/15/19 24 10/16/2023 URINA LYSIS , ROUTI NE specific gravity 1.018 1.005- 1.030 Not Available [facility] ([facility]) [address] [facility], [place], [address], 10/16/2023 13:11:13 10/15/19 24 10/16/2023 URINA LYSIS , ROUTI NE pH 6.0 5.0-7. 5 Not Available [facility] ([facility]) [address] [facility], [place], [address], 10/16/2023 13:11:13 10/15/19 24 10/16/2023 URINA LYSIS , ROUTI NE urine-color YELLOW yellow Not Available [facility] ([facility]) [address] [facility], [place], [address], 10/16/2023 13:11:13 10/15/19 24 10/16/2023 URINA LYSIS , ROUTI NE appearance CLEAR clear Not Available [facility] ([facility]) [address] [place], [address], 10/16/2023 13:11:13 10/15/19 24 10/16/2023 URINA LYSIS , ROUTI NE WBC esterase NEGATI VE negati ve Not Available [facility] ([facility]) [address] [place], [address], 10/16/2023 13:11:13 10/15/19 24 10/16/2023 URINA LYSIS , ROUTI NE protein NEGATI VE negati ve/tra ce Not Available [facility] ([facility]) [address] [facility], [place], [address], 10/16/2023 13:11:13 10/15/19 24 10/16/2023 URINA LYSIS , ROUTI NE glucose NEGATI VE negati ve Not Available [facility] ([facility]) [address] [place], [address], 10/16/2023 13:11:13 10/15/19 24 10/16/2023 URINA LYSIS , ROUTI NE ketones NEGATI VE negati ve Not Available [facility] ([facility]) [address] [place], [address], 10/16/2023 13:11:13 10/15/19 24 10/16/2023 URINA LYSIS , ROUTI NE occult blood NEGATI VE negati ve Not Available [facility] ([facility]) [address] [facility], [place], [address], 10/16/2023 13:11:13 10/15/19 24 10/16/2023 URINA LYSIS , ROUTI NE bilirubin NEGATI VE negati ve Not Available [facility] ([facility]) [address] [facility], [place], [address], 10/16/2023 13:11:13 10/15/19 24 10/16/2023 URINA LYSIS , ROUTI NE urobilinogen ,semi-qn 0.2 mg/dL 0.2-1. 0 Not Available [facility] ([facility]) [address] [facility], [place], [address], 10/16/2023 13:11:13 10/15/19 24 10/16/2023 URINA LYSIS , ROUTI NE nitrite, urine NEGATI VE negati ve Not Available [facility] ([facility]) [address] [facility], [place], [address], 10/16/2023 13:11:13 10/15/19 24 10/16/2023 URINA LYSIS , ROUTI NE microscopic examination COMMEN T Micro scopi c not indic ated and not perfo rmed. Not Available [facility] ([facility]) [address] [facility], [place], [address], 10/16/2023 13:11:13 10/15/19 24 10/16/2023 CBC WITH DIFFE RENTI AL/PL ATELE T WBC 5.3 x10e3 /uL 3.4-10 .8 Not Available [facility] ([facility]) [address] [facility], [place], [address], 10/16/2023 13:11:14 10/15/19 24 10/16/2023 CBC WITH DIFFE RENTI AL/PL ATELE T RBC 4.72 x10e6 /uL 4.14-5 .80 Not Available [facility] ([facility]) [address] [facility], [place], [address], 10/16/2023 13:11:14 10/15/19 24 10/16/2023 CBC WITH DIFFE RENTI AL/PL ATELE T hemoglobin 13.8 g/dL 13.0-1 7.7 Not Available [facility] ([facility]) [address] [facility], [place], [address], 10/16/2023 13:11:14 10/15/19 24 10/16/2023 CBC WITH DIFFE RENTI AL/PL ATELE T hematocrit 42.1 % 37.5-5 1.0 Not Available [facility] ([facility]) [address] [facility], [place], [address], 10/16/2023 13:11:14 10/15/19 24 10/16/2023 CBC WITH DIFFE RENTI AL/PL ATELE T MCV 89 fL 79-97 Not Available [facility] ([facility]) [address] [facility], [place], [address], 10/16/2023 13:11:14 10/15/19 24 10/16/2023 CBC WITH DIFFE RENTI AL/PL ATELE T MCH 29.2 pg 26.6-3 3.0 Not Available [facility] ([facility]) [address] [facility], [place], [address], 10/16/2023 13:11:14 10/15/19 24 10/16/2023 CBC WITH DIFFE RENTI AL/PL ATELE T MCHC 32.8 g/dL 31.5-3 5.7 Not Available [facility] ([facility]) [address] [facility], [place], [address], 10/16/2023 13:11:14 10/15/19 24 10/16/2023 CBC WITH DIFFE RENTI AL/PL ATELE T RDW 13.0 % 11.6-1 5.4 Not Available [facility] ([facility]) [address] [facility], [place], [address], 10/16/2023 13:11:14 10/15/19 24 10/16/2023 CBC WITH DIFFE RENTI AL/PL ATELE T platelets 221 x10e3 /uL 150-45 0 Not Available [facility] ([facility]) [address] [facility], [place], [address], 10/16/2023 13:11:14 10/15/19 24 10/16/2023 CBC WITH DIFFE RENTI AL/PL ATELE T neutrophils 35 % notest ab. Not Available [facility] ([facility]) [address] [facility], [place], [address], 10/16/2023 13:11:14 10/15/19 24 10/16/2023 CBC WITH DIFFE RENTI AL/PL ATELE T lymphs 53 % notest ab. Not Available [facility] ([facility]) [address] [facility], [place], [address], 10/16/2023 13:11:14 10/15/19 24 10/16/2023 CBC WITH DIFFE RENTI AL/PL ATELE T monocytes 9 % notest ab. Not Available [facility] ([facility]) [address] [facility], [place], [address], 10/16/2023 13:11:14 10/15/19 24 10/16/2023 CBC WITH DIFFE RENTI AL/PL ATELE T eos 2 % notest ab. Not Available [facility] ([facility]) [address] [facility], [place], [address], 10/16/2023 13:11:14 10/15/19 24 10/16/2023 CBC WITH DIFFE RENTI AL/PL ATELE T basos 1 % notest ab. Not Available [facility] ([facility]) [address] [facility], [place], [address], 10/16/2023 13:11:14 10/15/19 24 10/16/2023 CBC WITH DIFFE RENTI AL/PL ATELE T neutrophils (absolute) 1.9 x10e3 /uL 1.4-7. 0 Not Available [facility] ([facility]) [address] [facility], [place], [address], 10/16/2023 13:11:14 10/15/19 24 10/16/2023 CBC WITH DIFFE RENTI AL/PL ATELE T lymphs (absolute) 2.8 x10e3 /uL 0.7-3. 1 Not Available [facility] ([facility]) [address] [facility], [place], [address], 10/16/2023 13:11:14 10/15/19 24 10/16/2023 CBC WITH DIFFE RENTI AL/PL ATELE T monocytes(ab solute) 0.5 x10e3 /uL 0.1-0. 9 Not Available [facility] ([facility]) [address] [facility], [place], [address], 10/16/2023 13:11:14 10/15/19 24 10/16/2023 CBC WITH DIFFE RENTI AL/PL ATELE T eos (absolute) 0.1 x10e3 /uL 0.0-0. 4 Not Available [facility] ([facility]) [address] [facility], [place], [address], 10/16/2023 13:11:14 10/15/19 24 10/16/2023 CBC WITH DIFFE RENTI AL/PL ATELE T baso (absolute) 0.0 x10e3 /uL 0.0-0. 2 Not Available [facility] ([facility]) [address] [facility], [place], [address], 10/16/2023 13:11:14 10/15/19 24 10/16/2023 CBC WITH DIFFE RENTI AL/PL ATELE T immature granulocytes 0 % notest ab. Not Available [facility] ([facility]) [address] [facility], [place], [address], 10/16/2023 13:11:14 10/15/19 24 10/16/2023 CBC WITH DIFFE RENTI AL/PL ATELE T immature grans (abs) 0.0 x10e3 /uL 0.0-0. 1 Not Available [facility] ([facility]) [address] [facility], [place], [address], 10/16/2023 13:11:14 01/12/20 24 01/13/2024 CREAT ININE creatinine 1.22 mg/dL 0.76-1 .27 Not Available [facility] ([facility]) [address] [facility], [place], [address], 01/13/2024 06:21:03 01/12/20 24 01/13/2024 CREAT ININE eGFR 73 mL/mi n/1.7 3 >59 Not Available [facility] ([facility]) [address] [facility], [place], [address], 01/13/2024 06:21:03 01/12/20 24 01/13/2024 URINA LYSIS , ROUTI NE specific gravity 1.022 1.005- 1.030 Not Available [facility] ([facility]) [address] [facility] [place], [address], 01/13/2024 06:21:05 01/12/2001/13/2024 URINA LYSIS , ROUTI NE pH 6.0 5.0-7. 5 Not Available [facility] ([facility]) [address] [facility] [place], [address], 01/13/2024 06:21:05 01/12/2001/13/2024 URINA LYSIS , ROUTI NE urine-color YELLOW yellow Not Available [facility]) [address] [facility], [place], [address], 01/13/2024 06:21:05 01/12/20 24 01/13/2024 URINA LYSIS , ROUTI NE appearance CLEAR clear Not Available [facility] ([facility]) [address] [place], [address], 01/13/2024 06:21:05 01/12/20 24 01/13/2024 URINA LYSIS , ROUTI NE WBC esterase NEGATI VE negati ve Not Available [facility] ([facility]) [address] [place], [address], 01/13/2024 06:21:05 01/12/20 24 01/13/2024 URINA LYSIS , ROUTI NE protein NEGATI VE negati ve/tra ce Not Available [facility] ([facility]) [address] [place], [address], 01/13/2024 06:21:05 01/12/20 24 01/13/2024 URINA LYSIS , ROUTI NE glucose NEGATI VE negati ve Not Available [facility] ([facility]) [address] [place], [address], 01/13/2024 06:21:05 01/12/20 24 01/13/2024 URINA LYSIS , ROUTI NE ketones NEGATI VE negati ve Not Available [facility] ([facility]) [address] [place], [address], 01/13/2024 06:21:05 01/12/20 24 01/13/2024 URINA LYSIS , ROUTI NE occult blood NEGATI VE negati ve Not Available [facility] ([facility]) [address] [place], [address], 01/13/2024 06:21:05 01/12/20 24 01/13/2024 URINA LYSIS , ROUTI NE bilirubin NEGATI VE negati ve Not Available [facility] ([facility]) [address] [place], [address], 01/13/2024 06:21:05 01/12/20 24 01/13/2024 URINA LYSIS , ROUTI NE urobilinogen ,semi-qn 0.2 mg/dL 0.2-1. 0 Not Available [facility] ([facility]) [address] [facility], [place], [address], 01/13/2024 06:21:05 01/12/20 24 01/13/2024 URINA LYSIS , ROUTI NE nitrite, urine NEGATI VE negati ve Not Available [facility] ([facility]) [address] [facility], [place], [id number], 01/13/2024 06:21:05 01/12/20 24 01/13/2024 URINA LYSIS , ROUTI NE microscopic examination COMMEN T Micro scopi c not indic ated and not perfo rmed. Not Available [facility] ([facility]) [address] [facility], [place], [address], 01/13/2024 06:21:05 05/31/19 25 05/31/2024 Influ joe virus A and B and SARS- CoV-2 (COVI D-19) and Respi rator y syncy tial virus RNA panel - Respi rator y syste m speci men by ABDIAZIZ with probe detec tion sars-cov-2 (covid-19) RNA [presence] in respiratory system specimen by ABDIAZIZ with probe detection Not detect ed text: not detect ed COVID -19 PCR Not detec kamryn Not detec kamryn 05/31 1:28 PM EARLY INTERVENTIONIST [facility] Not Available Not Available 07/28/2024 09:53:01 05/31/1905/31/2024 Influ joe virus A and B and SARS- CoV-2 (COVI D-19) and Respi rator y syncy tial virus RNA panel - Respi rator y syste m speci men by ABDIAZIZ with probe detec tion influenza virus A RNA [presence] in specimen by ABDIAZIZ with probe detection Not detect ed text: not detect ed Influ joe A PCR Not detec kamryn Not detec kamryn 05/31 1:28 PM EARLY INTERVENTIONIST [facility] Not Available Not Available 07/28/2024 09:53:01 05/31/19 25 05/31/2024 Influ joe virus A and B and SARS- CoV-2 (COVI D-19) and Respi rator y syncy tial virus RNA panel - Respi rator y syste m speci men by ABDIAZIZ with probe detec tion influenza virus B RNA [presence] in specimen by ABDIAZIZ with probe detection Not detect ed text: not detect ed Influ joe B PCR Not detec kamryn Not detec kamryn 05/31 1:28 PM EARLY INTERVENTIONIST [facility] Not Available Not Available 07/28/2024 09:53:01 05/31/19 25 05/31/2024 Influ joe virus A and B and SARS- CoV-2 (COVI D-19) and Respi rator y syncy tial virus RNA panel - Respi rator y syste m speci men by ABDIAZIZ with probe detec tion respiratory syncytial virus RNA [identifier] in specimen by ABDIAZIZ with probe detection Not detect ed text: not detect ed RSV PCR Not detec kamryn Not detec kamryn 05/31 1:28 PM EARLY INTERVENTIONIST [facility] Not Available Not Available 07/28/2024 09:53:01 05/31/1905/31/2024 Influ joe virus A and B and SARS- CoV-2 (COVI D-19) and Respi rator y syncy tial virus RNA panel - Respi rator y syste m speci men by ABDIAZIZ with probe detec tion Unknown Analyte This nuclei c acid amplif icatio n assay has been author ized by the Food and Drug admini strati on (FDA) under an Emerge ncy Use Author quentin munguia (EUA). This test is only author ized for the durati on of time the declar ation that circum stance s exist justif александр the author quentin munguia of emerge ncy use of in vitro diagno stic tests for detect ion of SARS-C oV-2 virus and/or diagno sis of COVID- 19 infect ion under sectio n 564(b) (1) of the Act, 21 U.S.C 360bbb -3 (b)(1) , unless the author quentin munguia is termin ated or revoke d sooner . Fact Sheets for this EUA assay are availa ble upon reques t. This nucle ic acid ampli ficat ion assay has been autho rized by the Food and Drug admin istra tion (FDA) under an Emerg ency Use Autho rizat ion (EUA) . This test is only autho rized for the durat ion of time the decla ratio n that circu mstan kasia exist justi fying the autho rizat ion of emerg ency use of in vitro diagn ostic tests for detec tion of SARS- CoV-2 virus and/o r diagn osis of COVID -19 infec tion under secti on 564(b )(1) of the Act, 21 U.S.C 360bb b-3 (b)(1 ), unles s the autho rizat ion is termi nated or revok ed soone r. Fact Sheet s for this EUA assay are avail able upon reque st. Not Available Not Available 07/28/2024 09:53:01 05/31/19 25 05/31/2024 Influ joe virus A and B and SARS- CoV-2 (COVI D-19) and Respi rator y syncy tial virus RNA panel - Respi rator y syste m speci men by ABDIAZIZ with probe detec tion interpretati on and review of laboratory results Normal Not Available Not Available 07/10 09:53:01 05/31/19 25 05/31/2024 Strep tococ cus pyoge daniel Ag [Pres ence] in Throa t by Rapid immun oassa y streptococcu s pyogenes Ag [presence] in specimen by immunoassay Negati ve text: negati ve Rapid Strep A Scree n Negat kassandra Negat kassandra 05/31 1:01 PM EARLY INTERVENTIONIST [facility] K[facility] Not Available Not Available 07/28/2024 09:53:01 05/31/19 25 05/31/2024 Strep tococ cus pyoge daniel Ag [Pres ence] in Throa t by Rapid immun oassa y Unknown Analyte Rapid test for Group A Beta Strept ococcu s is NEGATI VE. A Negati ve, Direct Test for Group A Strept ococcu s will be follow ed with a confir matory Throat Cultur e when 2 swabs have been submit kamryn. Rapid test for Group A Beta Strep tococ cus is NEGAT KASSANDRA. A Negat kassandra, Direc t Test for Group A Strep tococ cus will be follo wed with a confi rmato ry Throa t Cultu re when 2 swabs have been submi tted. Not Available Not Available 07/28/2024 09:53:01 05/31/19 25 05/31/2024 Strep tococ cus pyoge daniel Ag [Pres ence] in Throa t by Rapid immun oassa y interpretati on and review of laboratory results Normal Not Available Not Available 07/10 09:53:01 05/31/19 25 2024 Strep tococ cus pyoge daniel [Pres ence] in Speci men by Organ ism speci fic cultu re microorganis m identified in specimen by culture Negati ve for beta-h emolyt ic Strept ococcu s Group A Cultu re Negat kassandra for beta- hemol ytic Strep tococ cus Group A AFSHAN 06/01 5:25 PM EARLY INTERVENTIONIST [facility] Not Available Not Available 07/28/2024 09:53:01 05/31/19 25 2024 Strep tococ cus pyoge daniel [Pres ence] in Speci men by Organ ism speci fic cultu re interpretati on and review of laboratory results Normal Not Available Not Available 07/10 09:53:01 05/10/20 23 05/10/2023 CT, head, w/o contr ast No observ ation [facility] [address] [place], [address], 09/24/2023 09:46:45 02/17/20 24 02/17/2024 , kidne y No observ ation record ed. [facility] [address] [place], [address], 03/03/2024 16:26:41 07/25/19 25 07/24/2024 CT, chest + abdom en + pelvi s, w/ contr ast No observ ation record ed. [facility] [address], [place], [address], 07/25/2024 09:23:29 Result Notes None recorded. Problems Name Problem SNOMED Code Status Onset Date Resolution Date Notes Provider Name and Address Organization Details Recorded Time SARS-CoV-2 vaccination declined 0313913496 Active 2023 Catrachito Jon MD Attn: Accountblaise g,[address] [facility], [place], [address], [facility] - [facility] 4 09:57:57 Type 2 diabetes mellitus without complication 999700130 Active 2023 Catrachito Jon MD Attn: Accountblaise g,[address] [facility], [place], [address], [facility] - [facility] 4 10:03:35 Disorder of lipid metabolism 195224049 Active 2023 Catrachito Jon MD Attn: Accountin g,[address] [facility], [place], [address], [facility] - [facility] 4 10:03:52 Tetanus vaccination declined by patient 984348151 Active 2023 Catrachito Jon MD Attn: Saida g,[address] [facility], [place], [address], [facility] - [facility] 4 10:43:04 Elevated blood-pressur e reading without diagnosis of hypertension 983276950 Active 2023 Catrahcito Jon MD Attn: Accountin g,[address] [facility], [place], [address], [place] - [facility] 4 16:19:35 Problem Notes None recorded. Procedures Surgical History Date Name Laterality Status Provider Name and Address Organization Details Recorded Time Diabetic Foot Exam completed Catrachito Jon MD Attn: Accounting,[address] [facility], [place], [address], [place] [facility] 09/24/2023 10:14:57 Imaging Results Imaging Date Name Status LastModified by Organiz ation Details LastModified Time 05/10/2023 CT, head, w/o contrast completed [facility] [address] [place], [address], 09/24/2023 09:46:45 02/17/2024 US, kidney completed [facility] [address] [place], [address], 03/03/2024 16:26:41 07/24/2024 CT, chest + abdomen + pelvis, w/ contrast completed [place] [id number] [facility] [address], [address], 07/25/2024 09:23:29 Procedure Notes None recorded. Medical Equipment None Reported. Allergies Allergen ID Allergen Name Allergen Category Reaction Reaction Severity Criticality Documentation Date Start Date Code Code System Note Provider Name and Address Organization Details Recorded Time 381902 shrimp allergeni c extract food Not available Not available Not available 04/24/2020 80563 2 RxNorm DANIELE [place], [place] - [facility] 0 14:48:49 312608 shellfish derived food,medi cation vomiting Not available Not available 11/23/2023 75132 TURNER Jon MD Attn: Accountblaise g,[address] [place], [address], [place] [facility] 4 15:23:37 992235 iodine medicatio n Not available Not available Not available 11/23/2023 5933 RxNorm Catrachito Jon MD Attn: Accountin g,[address] [facility], [place], [address], [place] [facility] 4 15:23:55 23854 acetamino phen medicatio n Not available Not available Not available 04/16/2016 161 RxNorm DANIELE [place], [place] [facility] 6 14:43:27 46971 Tylenol medicatio n rash Not available Not available 04/16/2016 3 RxNorm Helio Noyola MA null, [place] - [facility] 6 14:43:36 Medications Name Sig Start Date Stop Date [...] Updated DateTime 3 180.34 cm 30.3 kg/m2 59020.5 4 g 63 /min 98 % 98 % 127 mm[Hg] 84 mm[Hg] Senia Tristan [facility] 3 12:38:50 Date Recorded Body height Body mass index (BMI) Body weight Heart rate Oxygen saturation Oxygen saturation in Arterial blood by Pulse oximetry Systolic blood pressure Diastolic blood pressure Provider Name and Address Organization Details Last Updated DateTime 3 180.34 cm 28.7 kg/m2 86185.0 3 g 93 /min 96 % 96 % 126 mm[Hg] 76 mm[Hg] Daiana Greene [facility] 3 12:01:01 Date Recorded Body height Body mass index (BMI) Body weight Heart rate Oxygen saturation Oxygen saturation in Arterial blood by Pulse oximetry Systolic blood pressure Diastolic blood pressure Provider Name and Address Organization Details Last Updated DateTime 4 180.34 cm 30.5 kg/m2 54346.7 3 g 79 /min 98 % 98 % 138 mm[Hg] 80 mm[Hg] Daiana Greene MA [facility] 4 11:22:45 Date Recorded Body height Body mass index (BMI) Body weight Heart rate Oxygen saturation Oxygen saturation in Arterial blood by Pulse oximetry Respiratory rate Body temperature Systolic blood pressure Diastolic blood pressure Provider Name and Address Organization Details Last Updated DateTime 4 180.34 cm 30.7 kg/m2 85103.3 2 g 64 /min 99 % 99 % 18 /min 98.4 [degF] 124 mm[Hg] 80 mm[Hg] Elena Crain [facility] 4 09:40:30 Date Recorded Body height Body mass index (BMI) Body weight Heart rate Oxygen saturation Oxygen saturation in Arterial blood by Pulse oximetry Respiratory rate Systolic blood pressure Diastolic blood pressure Provider Name and Address Organization Details Last Updated DateTime 4 180.34 cm 29.7 kg/m2 77131.7 4 g 72 /min 98 % 98 % 16 /min 140 mm[Hg] 86 mm[Hg] Elena Crain MA [facility] 4 15:15:42 Date Recorded Systolic blood pressure Diastolic blood pressure Provider Name and Address Organization Details Last Updated DateTime 11/23/2023 130 mm[Hg] 80 mm[Hg] Catrachito Jon MD Attn: Accounting,[address] [place], [address], [place] [facility] 11/23/2023 15:27:45 Social History Question Answer Notes LastModified by Organizat ion Details LastModified Time Tobacco Smoking Status Former Smoker Stopped 2018 Catrachito Jon MD Attn: Accounting,[address], [place], [address], [facility] - [facility] 09/24/2023 09:50:15 Do You Have An Advance Directive? No Information not available 02/09/2023 Are You Blind Or Do You Have Difficulty Seeing? Yes Wears Glasses Information not available 02/09/2023 What Is Your Level Of Caffeine Consumption? Moderate Information not available 02/09/2023 Are You Deaf Or Do You Have Serious Difficulty Hearing? No Information not available 02/09/2023 What Type Of Diet Are You Following? DIABETIC Information not available 02/09/2023 What Is The Highest Grade Or Level Of School You Have Completed Or The Highest Degree You Have Received? [id number] Information not available 02/09/2023 Are There Any [...] No Information not available 09/24/2023 Do You Use Sunscreen Routinely? No Information not available 02/09/2023 Has Tobacco Cessation Counseling Been Provided? Yes Information not available 09/24/2023 On What Date Was Tobacco Cessation Counseling Provided? 09/24/2023 Information not available 09/24/2023 How Many Years Have You Smoked Tobacco? 7 [email or web address] Information not available 04/16/2016 Sex: Male Functional Status Question Answer Note LastModified by Organizat ion Details LastModified Time Do you use any illicit or recreational drugs? No Information not available 02/09/2023 What is your level of alcohol consumption? None Heavy alcohol for 12 years, stopped in 2008. Former drinker Information not available 09/24/2023 Are you currently employed? Yes Information not available 02/09/2023 Are you able to care for yourself? 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 Moderate Information not available 02/09/2023 Mental Status Question Answer Note LastModified by Organization D etails LastModified Time Do you feel stressed (tense, restless, nervous, or anxious, or unable to sleep at night)? [id number] Information not available 02/09/2023 Family History Relationship Description Onset Age of this Age Resolved Age Notes LastModified by Organization Details LastModified Time Father Harmful pattern of use of alcohol [email or web address] Not available 04/16 14:46:35 Mother Harmful pattern of use of alcohol [email or web address] Not available 04/16 14:46:35 Sister Harmful pattern of use of alcohol [email or web address] Not available 04/16 14:46:35 Brother Harmful pattern of use of alcohol [email or web address] Not available 04/16 14:46:35 Medical History Condition Response High Cholesterol Y Past Encounters Encounter ID Performer Location Encounter Start Date Encounter Closed Date Diagnosis/Indication Diagnosis SNOMED-CT Code Diagnosis ICD10 Code Diagnosis Note [id number] MD Amanda Bustamante (Adult Med) [address] [place] [phone] 04/16/2016 14:24:38 04/16/2016 15:23:35 Tinea corporis 27513737 B35.4 Adult heal th examination 041137753 Z00.00 [id number] MD Amanda Bustamante (Adult Med) [address] [place] [phone] 06/10/2016 10:22:47 06/10/2016 14:30:21 Hyperglycemia 39837154 R73.9 Hyperlipidemia 57852560 E78.5 Tinea corporis 12788639 B35.4 [id number] Abraham Estrada MD [facility] (Adult Med) [address] [place] [address] 06/23/2016 15:44:47 06/23/2016 18:09:05 Urinary tract infectious disease 53516166 N39.0 [id number] Abraham Estrada MD [facility] (Adult Med) [address] [place] [phone] 04/24/2020 14:29:33 04/25/2020 10:39:51 Adult health examination 080264124 Z00.00 Will order following screening tests, since he has nor been in this office for about 3 years, His family might have history of Type 2 DM nad BPH. History of sexually transmitted disease 899607234 Z86.19 Might had exposed to STD, [id number] Abraham Estrada MD [facility] (Adult Med) [address] [place] [address] 05/07/2021 12:29:56 05/08/2021 16:27:26 Type 2 diabetes mellitus 62629029 E11.9 Diabetic diet, exercise , lose weight and take medication as ordered and urine and repeat blood test in the future. [id number] Abraham Estrada MD [facility] (Adult Med) [address] [place] [phone] 0 08/06/2022 10:20:42 08/07/2022 14:21:39 Hyperglycemia 57322201 R73.9 He was given metformin. but he did not take, only on did not take it. only on diet he asid .He said today 08-06-22, that his blood sugar has dropped from 300 mg% about one and half years ago to around 125 mg% at present time, he has home glucometer and wants to refill lancet, strip and alcohol pad. Obesity 109123833 E66.9 BMI is 32. , diabetic diet, exercise and lose weight. Statin declined 44638375 0 Z53.20 Declined until lipid test. Intentiona l weight loss 367088018 R63.8 Eating healthy food. BMI dropped frm 37.1, 06-29-20, down to 32 today 08-06-22. Elevated blood-pressure reading without diagnosis of hypertension 713243456 R03.0 Will monitor blood pressure, and advised to stay on low salt diet,exerc ise, and keep the weight well, and avoid NSAID, such as ibuprofen, naproxen, and avoid OTC decongesta nt if possible. Today 08-06-22. [id number] [facility] [address] [place] [address] 11/28/2022 12:29:02 12/01/2022 14:29:11 Type 2 diabetes mellitus 11221440 E11.9 Diabetic diet, exercise , lose weight and take medication as ordered and urine and repeat blood test in the future. He is not fasting today. Screening for malignant neoplasm of colon 801048208 Z12.11 He agreed for the screening today. [id number] MD Amanda Bustamante (Adult Med) [address] [place] [id number] 02/09/2023 11:49:13 02/09/2023 12:29:35 Prediabetes 557859046 R73.03 Encourage to watch his diabetic diet, exercise and keep the weightdown . Statin declined 89788431 0 Z53.20 Declined until lipid test. [id number] [facility] [address] [place] [address] 0 06/15/2023 11:03:49 06/17/2023 15:03:08 Prediabetes 699251477 R73.03 Encourage to watch his diabetic diet, exercise and keep the weight down. A!C today is 5.9 %, he is informed , today 06-15-23. Fluttering heart 0750682 04 R00.2 He said hs has had fluttering hear beat, no chest,pain , no shortness of breath, no fainting spell. Agreed for cardiologi st referral for evaluation . [id number] MD Amanda Goetz (Adult Med) [address] [place] [id number] 0 09/24/2023 09:12:14 10/06/2023 14:29:27 Large prostate 175307234 N40.[address] General ex amination of patient 525922315 Z00.129 Disorder o f lipid metabolism 212563683 E78.9 LabsHe will benefit from a statin SARS-CoV-2 vaccination declined 9211433859 Z28.21 Type 2 anamika betes mellitus without complication 441686352 E11.9 HBA1C 5.3% (06/12/2023) , 10.1% () and 6.9% on 04/26/2020 Diet controlled Body mass index 30+ - obesity 040715030 Z68.30 Overweight 165511622 E66 .3 Renewal of prescription 083302080 Z76.0 Tetanus va ccination declined by patient 138837514 Z28.21 [id number] Catrachito Jon MD [facility] (Adult Med) [address] [place] [address] 11/23/2023 14:57:15 11/27/2023 13:13:01 Type 2 diabetes mellitus without complication 392533496 E11.9 HBA1C 5.8% on 10/15/2023 OV 09/24/2023H BA1C 5.3% (06/12/2023) , 10.1% () and 6.9% on 04/26/2020 Diet controlled Disorder o f lipid metabolism 343396953 E78.9 Start Rosuvastat in, MSK side effects were discussed. The indication was also discussedL ow fat, low saturated fat diet.OV 09/24/2023L absHe will benefit from a statin Serum crea tinine above reference range 595933742 R79.89 Creatinine 1.33 on 10/15/2023, unfortunat arturo I have no other Creatinine level in his chart. Elevated blood-pressure reading without diagnosis of hypertension 575666940 R03.0 Normal when it was rechecked Health Concerns Section Related Observation LastModified by Organization Detai ls LastModified Time None Recorded Concern Status LastModified by Organization Details LastModified Time None Recorded Advance Directives Directive N: Payers Encounter Date Sequence Insurance Name Policy Number Policy Goncalves Covered Member ID Goncalves Member ID Guarantor Name 11/28/2022 1 [facility] ON OR AFTER 11/08/20 (MEDICAID REPLACEMENT - HMO) Donald Ricardoline [id number] Donald Ricardoline 02/09/2023 1 [facility] ON OR AFTER 11/08/20 (MEDICAID REPLACEMENT - HMO) Donald Ricardoline [id number] Donald Ricardoline 06/15/2023 1 [facility] ON OR AFTER 11/08/20 (MEDICAID REPLACEMENT - HMO) Donald Haleighline [id number] Donald Ricardoline 09/24/2023 1 [facility] ON OR AFTER 11/08/20 (MEDICAID REPLACEMENT - HMO) Donald Haleighline [id number] Donald Ricardoline 11/23/2023 1 [facility] ON OR AFTER 11/08/20 (MEDICAID REPLACEMENT - HMO) Donald Ricardoline [id number] Donald [facility] Notes Date Note Type Note Provider Name [...] good DM controlled. Abraham Estrada MD Attn: Accounting, [address] [facility], [place], [address], [facility] 11/28/2022 13:35:39 02/09/2023 text/html Office visit. Allergic to acetaminophen, shrimp and tylenol. Pre-diabetic , watching his diet, exercise , Abraham Estrada MD Attn: Accounting, [address] [facility], [place], [address], [facility] 02/09/2023 18:33:12 06/15/2023 text/html Office visit, allergic to acetaminophen, shrimp and tylenol. history of pre-diabetic, been doing blood sugar by his own. No chest pain, no shortness of breath, no fever, ROS as noted in HPI. Abraham Estrada MD Attn: Accounting,[address] [facility], [place], [address], [facility] 06/16/2023 10:44:22 09/24/2023 text/html Diabetes F/URepo [...] palpitations have stopped Catrachito Jon MD Attn: Accounting,[address] [facility], [place], [address], [facility] 09/24/2023 10:44:07 11/23/2023 text/html Diabetes F/URepo rted [...] it was normal. Catrachito Jon MD Attn: Accounting,[address] [facility], [place], [address], [facility] 11/23/2023 16:21:36
--- OUTSIDE RECORDS SUMMARY | 2024-09-29 01:51 | XMS_ITS | Clinical Summary ---
Author Organization [facility] Address [address] [place] [address] Care Team Providers Care Broadcast Checker Name Role Phone Unknown, Provider Primary Care Provider Unavaila ble Source Comments [facility],non-owned Affiliates and Associated Physician Practices is amultiple site organization consisting of ambulatory clinics and hospital sitesin [place], [place], [place] and [place]. This disclosure is being madepursuant to the Care Everywhere program and may not contain all information available regarding this patient. Last updated 18.[facility] Allergies Active Allergy Reactions Criticality Noted Date Comments Acetaminophen Rash Medium Propoxyphene N-Apap Other Low 01/28/2017 Face shrinking Shellfish Allergy Nausea and/or Vomiting Low 2016 Medications * Be aware that medications may not be up to date on this document. Alwaysverify current medications with the patient. cetirizine (ZYRTEC ALLERGY) 10 MG tabletIndication s:Pruritus of groin in male Take 10-20 mg twice per day. 30 day supply 60 tablet 2 03/02/2018 Active tacrolimus (PROTOPIC) 0.1 % ointmentIndicati ons:Pruritus of groin in male Apply to itchy areas of the groin BID. 30 days supply 60 g 3 03/02/2018 Active triamcinolone acetonide (KENALOG) 0.1 % ointmentIndicati ons:Pruritus of groin in male Apply to itchy groin twice daily. 30 days supply. 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 Gender Identity Not on file Sexual Orientation Not on file Last Filed Vital Signs Vital Sign Reading Time Taken Comments Blood Pressure 115/86 05/31/2024 12:03 PM EARTH SCIENCE TEACHER Pulse 110 05/31/2024 12:03 PM EARTH SCIENCE TEACHER Temperature 37.6 C (99.6 F) 05/31/2024 12:03 PM EARTH SCIENCE TEACHER Respiratory Rate 19 05/31/2024 12:03 PM EARTH SCIENCE TEACHER Oxygen Saturation 99% 05/31/2024 12:03 PM EARTH SCIENCE TEACHER Inhaled Oxygen Concentration - - Weight 56.7 kg (125 lb) 05/31/2024 12:03 PM EARTH SCIENCE TEACHER Height 180.3 cm (5' 11) 05/31/2024 12:03 PM EARTH SCIENCE TEACHER Body Mass Index 17.43 05/31/2024 12:03 PM EARTH SCIENCE TEACHER Plan of Treatment Health Maintenance Due [...] - 19+ 3-dose series) 1994 COVID-19 VACCINE ( - 2023-2 5 season) 2024 DEPRESSION SCREENING 05/11/2024 INFLUENZA VACCINE (Season Ended) 2025 ZOSTER VACCINE (1 of 2) 2025 COLOGUARD [...] on patient's age to complete this topic Insurance Care Teams Broadcast Checker Relationship Specialty Start Date End Date Unknown, Provider PCP - General 11/04/17
--- OUTSIDE RECORDS SUMMARY | 2024-09-29 01:51 | XMS_ITS | CONTINUITY OF CARE DOCUMENT ---
Author Name belinda trevino Address Unknown Organization [facility] Address [address] [place] [address] Phone [phone] Care Team Providers Care Licensed Optical Dispenser Name Role Phone Gilbert BERNABE, Giovani Unavailable MARK HARRINGTON MD Unavailable [phone] MARK HARRINGTON MD Unavailable [phone] INSURANCE PROVIDERS Payer name Policy type / Coverage type aMrk red democrat [place] MEDICAID (2) Medicaid [id number]
--- NOTE | 2024-09-29 07:35 | WPDHPUPDATE1 ---
History and Physical Update Update Date/Time: 09/29/24 07:35 History and Physical has been reviewed, including an updated exam of the patient. There are NO changes in the patient's condition. Risks, benefits, and alternatives have been discussed and questions answered. Patient agrees to proceed with procedure.
[2024-09-29] MEDS: KETOROLAC 15 MG/ML VIAL (*BKC) IV PUSH (09:16)
[2024-09-29] MEDS: LACTATED RINGERS 1,000 ML 30 ML IV CONT ×2 (09:16→12:58)
--- NOTE | 2024-09-29 09:49 | P.PNAN_ITS ---
Anes - Initial Pre Proc Eval Procedure: Operation Date: 09/29/24 10:00 Proposed Procedures p Right Shoulder Arthroscopic Rotator Cuff Repair, Proceed as Indicated - Oswald Gonsalez MD Date/Time: 09/29/24 09:49 Surgeon: Oswald Gonsalez MD Pre Op Diagnosis: complete right shoulder rotator cuff tear Patient Data Age: 49 Gender: M Height: 1.8 m Weight: 97 kg Last Vital Signs Temp 97.7 F 09/29/24 09:14 Pulse 64 09/29/24 09:14 BP 127/91 H 09/29/24 09:14 Pulse Ox 100 09/29/24 09:14 O2 Del Method Room Air 09/29/24 09:14 Allergies Allergy/AdvReac Type Severity Reaction Status Date / Time acetaminophen AdvReac Intermediate Other Verified 09/29/24 09:11 iodine AdvReac Nausea and Verified 09/29/24 09:11 Vomiting Home Medications ?Medication ?Instructions ?Recorded ?Confirmed ?Type naproxen 500 mg tablet 500 mg PO BID PRN pain #20 tabs 06/21/24 09/26/24 Rx ibuprofen 600 mg tablet 600 mg PO TID PRN pain #60 tabs 07/18/24 09/26/24 Rx oxycodone-acetaminophen 5 mg-325 1 - 2 tablet PO Q4-6H PRN pain 7 09/29/24 Rx mg tablet days #30 tabs Patient hx anesthesia problems: none Family hx anesthesia problems: none Results Review: All pre-operative results and documents have been reviewed as part of the pre- operative evaluation. PMF Past Medical History Medical History No pertinent past medical history Surgical History Surgical History No pertinent past surgical history Family History Family History Mother Polysubstance abuse Social History Social History Smoking status: Former smoker Alcohol intake: never Substance use: never Do You Feel Safe in your Home?: Yes Lack of Transportation: No Lack of Food: Never True Current Housing: I Have Housing Concerned About Future Housing: No Difficulty Paying Gas/Electric Bills: Decline to Answer Difficulty Paying for Meds: Decline to Answer Currently Unemployed: No Education: High School Diploma/GED Difficulty w/ Childcare or Family Care: No Living arrangements: with family Gender identity (if verbalized by the patient): Male Sexual Orientation (if Verbalized by the Patient): Straight or Heterosexual Spiritual care concerns: No Anes - Eval Final PreProcedure Day of Procedure 09/29/24 09:49 Patient weight: normal Heart: regular rate and rhythm Lungs: clear to auscultation Airway: Mallampati scale class II Neurological: alert and oriented Last oral intake: >/= 8 hours ASA classification: II Emergent: no Anesthetic plan: proceed Anesthesia type and monitoring: general ETT and standard monitoring Results Review: All pre-operative results and documents have been reviewed as part of the pre- operative evaluation. Informed Consent: The patient's anesthetic plan and its attendant risks and benefits were discussed with the patient/family/POA. Questions were solicited and answers provided to the satisfaction of the patient/family/POA.
[2024-09-29] MEDS: ceFAZolin 2 GM/D5W 50 ML 2 GM/50 ML BAG IVPB (10:56)
[2024-09-29] MEDS: BUPIVACAINE/EPINEPHRINE 0.5% 50 ML VIAL 20 ML INFILTRATE (10:57)
[2024-09-29] MEDS: fentaNYL CITRATE INJ (*CRX) 100 MCG/2 ML VIAL 25 MCG IV PUSH ×7 (13:12→14:02)
[2024-09-29] MEDS: ONDANSETRON INJ 4 MG/2 ML VIAL IV PUSH (14:34)
--- NOTE | 2024-09-29 14:40 | SUR.PHASEI ---
Dr. Capone at bedside to give nerve block.
--- NOTE | 2024-09-29 14:54 | WPDANESPNB ---
Anes - Peripheral Nerve Block Date/Time: 09/29/24 14:54 I have discussed with the patient/family/POA the placement of a peripheral nerve block for post-operative pain management, including associated risks, benefits, complications, and side effects. Alternative methods of post-operative analgesia were detailed. Questions were solicited and answers provided to the satisfaction of the patient/family/POA. Time-Out: A pre-procedural Time-Out was completed immediately before starting the procedure and confirmed: Patient Identification, Site, Procedure, Patient Position and the Availability of Requisite Equipment. Clinical Indications: Acute post-operative pain management requested by the operative surgeon. Nerve Block Insertion Note Anes-nerve block: interscalene right Patient position: supine Skin prep: chlorhexidine Needle: 22 gauge, stimulating, insulated echogenic needle. Needle length: 50 mm Technique: ultrasound Injectate: bupivacaine 0.5% with epi 5 mcg/ml (20cc- no epi) Observations: tolerated well Complications: none Procedure start time:: 143 Procedure end time:: 143
--- NOTE | 2024-09-29 15:06 | P.OP_ITS ---
Procedure Note - Detailed Date of Procedure 09/29/24 Pre-op Diagnosis Acute Full-thickness retracted subscapularis rotator cuff tear, right shoulder Post-op Diagnosis Other (1. Complete subscapularis Rotator cuff tear 2. Biceps tendinosis) Procedure Performed Right shoulder 1. Arthroscopic rotator cuff repair 2. Arthroscopic biceps tenodesis Surgeon Oswald Gonsalez MD Tree Wrapper Debra Dooley PA-C Anesthesia General and Regional ( interscalene block) Findings Complete retracted acute subscapularis tear. Significant scarring due to the late presentation. Anatomic reduction obtained. Double row repair performed. Significant tendinosis of the biceps identified. Biceps tenodesis performed. The supraspinatus was intact. The articular cartilage had minimal grade 1 chondromalacia at the central aspect and on the humerus. Description of Procedure Preoperative antibiotics were given. The patient was bought brought to the operating room. A general anesthetic was administered. The patient was carefully positioned in the beach chair position. The head and neck were carefully positioned. The non operative extremity was also carefully positioned. The shoulder was prepped and draped in the usual sterile fashion. Examination was performed. Standard posterior and anterior arthroscopic portals were established. Inflow achieved with the arthroscopic pump using saline and epinephrine. The glenohumeral joint was carefully inspected. The subscapularis was noted to be completely torn with a comma sign. The subscapularis was intact. The biceps had significant tendinosis at the intertubercular groove proximally. Biceps was released after tagging with multiple suture loops on the subacromial side. Attention was turned to the subacromial space. The bursa was quite thickened. A complete bursectomy was performed. The tear configuration was carefully assessed. After soft tissue release anterior superior and posterior on the subscapularis, the tissue was much more mobile. Anatomic reduction to the lesser tuberosity was possible. The tuberosity was lightly cleaned of debris. Two FiberTak all suture anchors were placed medially on the lesser tuberosity. One superior and 1 distal. Two sutures from each anchor were passed into the tissue of the subscapularis. An additional luggage tag stitch was placed at the proximal corner. The sutures were crossed and brought into 2 lateral SwiveLock anchors. Excellent reduction and compression of the tendon on the footprint was accomplished. The biceps tenodesis suture was also incorporated in the proximal anchor. The arthroscopic instruments were removed. The wounds were closed with 3-0 Monocryl subcuticular suture and steri strips. There were no complications. A sling was applied and the patient brought to the recovery room. Physician assistant manager airside operations, Debra Dooley PA-C, required for surgery; including patient positioning, draping, arthroscopic camera operation, maintaining instrument position, suture retrieval, wound closure, and dressing and sling placement. Implants Arthrex SwiveLock anchors 4.75 mm x 2. FiberTak all suture anchors x2 Estimated Blood Loss 20 Pathology None sent Complications No immediate complications Condition Stable Disposition PACU [facility] Billing Surgery - Charge Forward: Surgery Billing
--- NOTE | 2024-09-29 15:10 | SUR.PHASEII ---
Debra Osuna (SUPERINTENDENT MAINTENANCE) contacted - pt is requesting ibuprofen prescription. New orders sent to their preferred pharmacy.
--- NOTE | 2024-09-29 15:17 | SUR.PHASEII ---
MD Capone contacted - pt still nauseated after ordered Zofran. New orders for RN to give scopalamine patch and 12.5 Benadryl IVP once.
[2024-09-29] MEDS: SCOPOLAMINE 1 MG PATCH 1 PATCH TRANSDERM (15:28)
[2024-09-29] MEDS: diphenhydrAMINE HCl INJ 50 MG/ML VIAL 12.5 MG IV PUSH (15:34)
== END 2024-09-29 16:27 | disposition home or self-care (01) ==
PROVIDERS: PCP Internal Medicine Infectious Disease; Visit Provider Orthopaedic Surgery
PROC: (CPT 29805; principal; 2024-09-29 10:00)
DX: S46.011A Strain of muscle(s) and tendon(s) of the rotator cuff of right shoulder, initial encounter (principal); M75.21 Bicipital tendinitis, right shoulder; W18.39XA Other fall on same level, initial encounter; G89.18 Other acute postprocedural pain; Z87.891 Personal history of nicotine dependence
CPT/HCPCS: 29827; 29828; 64415; A9270; C1713; J0171; J0690; J1100; J1200; J1885; J2250; J2405; J2704; J3010; J7120

== ENCOUNTER 2024-12-11 12:42 | Observation (INO) | payer OTHER, SELFPAY ==
--- NOTE | ~2024-12-11 | CT_ITS ---
EXAMINATION: CT abdomen pelvis w con DATE: 12/11/2024 15:20 INDICATION: abd pain hx diverticulitis TECHNIQUE: Computed tomography (CT) of the abdomen and pelvis was performed with 100 mL Omnipaque-350 intravenous contrast. Automated exposure control and iterative reconstruction technique were employe d. The dose-length product was 765.92 mGy-cm. COMPARISON: None. FINDINGS: Lower thorax: Unremarkable Liver: Normal. Biliary/Gallbladder: Gallbladder is normal. No bile duct dilation. Pancreas: No mass or duct dilation. Spleen: Normal. Adrenals:No mass. Kidneys: Simple left upper pole cyst. Mild chronic left pelviectasis and caliectasis. Mild chronic ri ght pelviectasis. GI tract: Moderate distal esophageal and gastric wall edema. Diverticulosis. Short segment severe wal l thickening in the proximal transverse colon. 1.2 cm fecalith likely in a diverticulum with adjacent gas, still likely within the diverticulum lumen. Considerable surrounding inflammatory change and fl uid. Adjacent 6 mm and 1.2 cm rim-enhancing fluid density collections and prominent adjacent lymph no edward. No small or large bowel dilation. Normal appendix. Mesentery/Peritoneum: No ascites, mass, or free air. Retroperitoneum: No mass. Pelvis: Pelvic organs are within normal limits. Soft Tissues: Small uncomplicated fat-containing umbilical hernia. Bones: No acute osseous finding. IMPRESSION: Moderate esophagitis/gastritis. Acute proximal transverse colon diverticulitis, complicated by suspected small adjacent pericolonic a bscesses. Reviewed, dictated and finalized at location K. IMPRESSION: Moderate esophagitis/gastritis. Acute proximal transverse colon diverticulitis, complicated by suspected small adjacent pericolonic abscesses.
[2024-12-11 12:44] VITALS: BP 136/88; PULSE 73; RESP 20; TEMP 36.2; O2SAT 100
--- OUTSIDE RECORDS SUMMARY | 2024-12-11 12:44 | XMS_ITS | Clinical Summary ---
Author Organization [facility] [employer] Address [address] [place] [address] Care Team Providers Care Systems Support Specialist Name Role Phone Unknown, Provider Primary Care Provider Unavaila ble Source Comments [facility] [employer],non-owned Affiliates and Associated Physician Practices is amultiple site organization consisting of ambulatory clinics and hospital sitesin [place], [place], [place] and [place]. This disclosure is being madepursuant to the Care Everywhere program and may not contain all information available regarding this patient. 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 Gender Identity Not on file Sexual Orientation Not on file Last Filed Vital Signs Vital Sign Reading Time Taken Comments Blood Pressure 115/86 05/31/2024 12:03 PM GROUNDS CLEANER Pulse 110 05/31/2024 12:03 PM GROUNDS CLEANER Temperature 37.6 C (99.6 F) 05/31/2024 12:03 PM GROUNDS CLEANER Respiratory Rate 19 05/31/2024 12:03 PM GROUNDS CLEANER Oxygen Saturation 99% 05/31/2024 12:03 PM GROUNDS CLEANER Inhaled Oxygen Concentration - - Weight 56.7 kg (125 lb) 05/31/2024 12:03 PM GROUNDS CLEANER Height 180.3 cm (5' 11) 05/31/2024 12:03 PM GROUNDS CLEANER Body Mass Index 17.43 05/31/2024 12:03 PM GROUNDS CLEANER Plan of Treatment Health Maintenance Due Date [...] season) 2024 DEPRESSION SCREENING 05/11/2024 INFLUENZA VACCINE (#1) 2025 ZOSTER VACCINE (1 of 2) 2025 [...] to complete this topic Insurance Care Teams Systems Support Specialist Relationship Specialty Start Date End Date Unknown, Provider PCP - General 11/04/17
[2024-12-11 14:58] LABS: Hematocrit 39.1 % (42.0-52.0); Hemoglobin 12.9 g/dL (14.0-18.0); Immature Granulocyte Percent A 0.1 % (0-0.5); Lymphocytes Absolute Auto 2.34 K/mm3 (0.9-3.2); Mean Corpuscular HGB Conc 33.0 g/dl (32-36); Mean Corpuscular Hemoglobin 28.9 pg (26-34); Mean Corpuscular Volume 87.7 fl (80-100); Nucleated Red Blood Cells Absolute Auto 0.000 K/mm3 (0.0-0.012); Nucleated Red Blood Cells Perc 0.0 % (0.0-0.2); Platelet Count Result 192 k/mm3 (150-375); Red Blood Count 4.46 M/mm3 (4.6-6.20); White Blood Count 7.4 K/mm3 (4.5-10.0)
[2024-12-11 15:00] VITALS: BP 134/91; PULSE 71; RESP 16; O2SAT 98
[2024-12-11 15:14] LABS: Alanine Aminotransferase 22 U/L (6-50); Albumin Level 4.2 g/dL (3.5-5.1); Alkaline Phosphatase 57 U/L (38-126); Anion Gap 8 mmol/L (4-12); Aspartate Amino Transferase 30 U/L (17-59); Bilirubin,Total 1.0 mg/dL (0.2-1.3); Blood Urea Nitrogen 15 mg/dL (9-20); Calcium 8.8 mg/dL (8.4-10.2); Carbon Dioxide 23 mmol/L (22-30); Chloride 105 mmol/L (98-107); Estimated CRCL calculation 79 ml/min; Estimated Glomerular Filt Rate > 60; Glucose 113 mg/dL (65-110); Lipase 51 U/L (23-300); Potassium 3.8 mmol/L (3.4-5.0); Sodium 136 mmol/L (137-145); Total Protein 8.2 g/dL (6.3-8.2)
--- OUTSIDE RECORDS SUMMARY | 2024-12-11 15:36 | XMS_ITS | Clinical Summary ---
Author Organization [facility] [employer] Address [address] [place] [address] Care Team Providers Care Machine Clothing Replacer Name Role Phone Unknown, Provider Primary Care Provider Unavaila ble Source Comments [facility] [employer],non-owned Affiliates and Associated Physician Practices is amultiple site organization consisting of ambulatory clinics and hospital sitesin [place], [place], [place] and [place]. This disclosure is being madepursuant to the Care Everywhere program and may not contain all information available regarding this patient. 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 Gender Identity Not on file Sexual Orientation Not on file Last Filed Vital Signs Vital Sign Reading Time Taken Comments Blood Pressure 115/86 05/31/2024 12:03 PM PROFESSIONAL POKER PLAYER Pulse 110 05/31/2024 12:03 PM PROFESSIONAL POKER PLAYER Temperature 37.6 C (99.6 F) 05/31/2024 12:03 PM PROFESSIONAL POKER PLAYER Respiratory Rate 19 05/31/2024 12:03 PM PROFESSIONAL POKER PLAYER Oxygen Saturation 99% 05/31/2024 12:03 PM PROFESSIONAL POKER PLAYER Inhaled Oxygen Concentration - - Weight 56.7 kg (125 lb) 05/31/2024 12:03 PM PROFESSIONAL POKER PLAYER Height 180.3 cm (5' 11) 05/31/2024 12:03 PM PROFESSIONAL POKER PLAYER Body Mass Index 17.43 05/31/2024 12:03 PM PROFESSIONAL POKER PLAYER Plan of Treatment Health Maintenance Due Date [...] to complete this topic Insurance Care Teams Machine Clothing Replacer Relationship Specialty Start Date End Date Unknown, Provider PCP - General 11/04/17
--- NOTE | 2024-12-11 15:43 | ED.ABDPAIN ---
HPI - Abdominal Pain General Chief Complaint: Abdominal Pain Stated Complaint: abd pain Time Seen by Provider: 12/11/24 14:09 History of Present Illness HPI narrative: 49-year-old male with history of diverticulosis with diverticulitis presenting to the emergency room with 2 days of lower left quadrant abdominal pain associated with some diarrhea and loose stools. Going up to 6 times a day for last 2 days. No nausea or vomiting. No trauma or injury to his abdomen. No abdominal surgical history in the past. No colonoscopies in the past but he has had a negative Cologuard test. Denies any fever, chills, decreased oral intake or signs of dehydration. He was otherwise in his normal state of health. States feels very similar to last time he had diverticulitis which was treated with oral antibiotics with remission. Related Data Allergies Allergy/AdvReac Type Severity Reaction Status Date / Time acetaminophen AdvReac Intermediate Other Verified 12/11/24 18:54 seafood AdvReac Mild Nausea and Uncoded 12/11/24 18:54 Vomiting Review of Systems Review of Systems: As reviewed [facility] HPI [facility] Past Medical History Medical History Diverticulosis Diverticulitis Surgical History Surgical History Status post rotator cuff repair (~09/29/24) Biceps tenodesis Family History Family History Mother Polysubstance abuse Social History Social History Smoking status: Former smoker Tobacco type: cigarettes Smoking end date: 09/21/08 Additional smoking assessment comments: would smoke about 3-4 times per week quit about 15 years ago Alcohol intake: never Substance use: never Substance use type: does not use Do You Feel Safe in your Home?: Yes Lack of Transportation: No Lack of Food: Never True Current Housing: I Have Housing Concerned About Future Housing: No Difficulty Paying Gas/Electric Bills: No Difficulty Paying for Meds: No Currently Unemployed: No Education: High School Diploma/GED Difficulty w/ Childcare or Family Care: No Living arrangements: with family Gender identity (if verbalized by the patient): Male Sexual Orientation (if Verbalized by the Patient): Straight or Heterosexual Spiritual care concerns: No Exam Narrative: GENERAL: [Well-appearing, well-nourished, and in no acute distress.] HEAD: [Normocephalic, atraumatic.] EYES: [PERRLA and EOMI.] ENT: Nares clear, no rhinorrhea or epistaxis. Mucous membranes moist. NECK: Supple. CHEST: [Clear to auscultation. No respiratory distress.] HEART: [Regular rate and rhythm]. No murmur heard. [Normal peripheral pulses.] ABDOMEN: [Soft, nondistended], mildly tender in left lower quadrant, [No rigidity or guarding] EXTREMITIES: Normal range of motion. [No edema.] SKIN: Warm, dry, no rash. NEURO: [No focal deficits]. Alert and oriented [x3.] PSYCH: [Normal mood and affect.] Course Vital Signs Vital signs: Vital Signs Temperature 36.2 C L 12/11/24 12:44 Pulse Rate 73 12/11/24 12:44 Respiratory Rate 20 12/11/24 12:44 Blood Pressure 136/88 12/11/24 12:44 Pulse Oximetry 100 12/11/24 12:44 Oxygen Delivery Room Air 12/11/24 12:44 Temperature 36.3 C L 12/11/24 18:59 Pulse Rate 55 L 12/11/24 18:59 Respiratory Rate 16 12/11/24 18:59 Blood Pressure 132/104 H 12/11/24 18:59 Pulse Oximetry 100 12/11/24 18:59 Oxygen Delivery Room Air 12/11/24 12:44 MDM - Abdominal Pain MDM Narrative Medical decision making narrative: 49-year-old male with history of diverticulosis with diverticulitis presenting to the emergency room with 2 days of lower left quadrant abdominal pain associated with some diarrhea and loose stools. Going up to 6 times a day for last 2 days. No nausea or vomiting. No trauma or injury to his abdomen. No abdominal surgical history in the past. No colonoscopies in the past but he has had a negative Cologuard test. Denies any fever, chills, decreased oral intake or signs of dehydration. He was otherwise in his normal state of health. States feels very similar to last time he had diverticulitis which was treated with oral antibiotics with remission. Patient has a reassuring physical examination but does have some reproducible tenderness in left lower quadrant without signs of peritonitis. No fever or hypoxia. No tachycardia tachypnea. Normal blood pressure. Differential includes diverticulitis, diverticulosis, intra-abdominal abscess, perforation, less likely intra-abdominal infection such as appendicitis or cholecystitis given the location of his pain. Possibility of kidney stones but less likely. CT scan with contrast was ordered. He was given Zofran and fluids as well as Toradol. Laboratory studies obtained with urinalysis, CBC, CMP, lipase. CT scan shows complicated diverticulitis, no perforation but there is some microabscesses. Patient started on ciprofloxacin and Flagyl. Laboratory studies reassuring. Patient's pain is under control at this time. Discussed the case with the hospitalist who accepted the patient to a med surge unit. Patient and family made aware of the plan and comfortable with admission. Patient remains hemodynamically stable and safe for admission at this time. Medical Records Attestation: I reviewed the patient's medical records. Lab Data Attestation: I reviewed the patient's lab results. 12/11/24 14:50 12/11/24 14:50 Labs: Lab Results 12/11/24 12/11/24 Range/Units 14:50 15:48 WBC 7.4 (4.5-10.0) K/mm3 RBC 4.46 L (4.6-6.20) M/mm3 Hgb 12.9 L (14.0-18.0) g/dL Hct 39.1 L (42.0-52.0) % MCV 87.7 (80-100) fl MCH 28.9 (26-34) pg MCHC 33.0 (32-36) g/dl RDW 13.6 (11.5-14.5) % Plt Count 192 (150-375) k/mm3 MPV 10.4 (7.4-10.4) fl Immature Gran % (Auto) 0.1 (0-0.5) % Neut % (Auto) 58.1 (45.5-73.1) % Lymph % (Auto) 31.5 (18.3-44.2) % [place] % (Auto) 7.7 (2.6-8.5) % Eos % (Auto) 2.3 (0-4.4) % Baso % (Auto) 0.3 (0.2-1.2) % Lymph # (Auto) 2.34 (0.9-3.2) K/mm3 [place] # (Auto) 0.6 (0.1-0.6) K/mm3 Eos # (Auto) 0.2 (0-0.3) K/mm3 Baso # (Auto) 0.0 (0.0-0.1) K/mm3 Abs Immat Gran (auto) 0.01 (0.00-0.031) K/mm3 Absolute Neuts (auto) 4.3 (1.3-6.7) K/mm3 Absolute Nucleated RBC 0.000 (0.0-0.012) K/mm3 Nucleated RBC % 0.0 (0.0-0.2) % Sodium 136 L (137-145) mmol/L Potassium 3.8 (3.4-5.0) mmol/L Chloride 105 (98-107) mmol/L Carbon Dioxide 23 (22-30) mmol/L Anion Gap 8 (4-12) mmol/L BUN 15 (9-20) mg/dL Creatinine 1.07 (0.7-1.3) mg/dL Estim Creat Clear Calc 79 ml/min Estimated GFR > 60 (59 - ) Glucose 113 H (65-110) mg/dL Calcium 8.8 (8.4-10.2) mg/dL Total Bilirubin 1.0 (0.2-1.3) mg/dL AST 30 (17-59) U/L ALT 22 (6-50) U/L Alkaline Phosphatase 57 (38-126) U/L Total Protein 8.2 (6.3-8.2) g/dL Albumin 4.2 (3.5-5.1) g/dL Lipase 51 (23-300) U/L Urine Color Yellow (Yellow) Urine Appearance Clear (Clear) Urine pH 5.5 (5.0-9.0) Ur Specific Mat[place]y 1.041 H (1.001-1.035) Urine Protein Negative (Negative) mg/dL Urine Glucose (UA) Negative (Negative) mg/dL Urine Ketones Negative (Negative) mg/dL Ur Blood (Man) Trace (Negative) Urine Nitrate Negative (Negative) Urine Bilirubin Negative (Negative) Urine Urobilinogen 0.2 (<2.0) mg/dL Leukocyte Esterase Rfl Negative (Negative) SHAGUFTA/UL Urine RBC 0-2 (0-2) /hpf Urine WBC 0-5 (0-3) /hpf Ur Squamous Epith Cells None seen (Few) /hpf Urine Bacteria None seen /hpf Urine Casts 0-2 Imaging Data Attestation: I personally reviewed and interpreted this imaging study as follows: My impression: Impressions Abdomen/Pelvis CT 12/11/24 15:52 IMPRESSION: Moderate esophagitis/gastritis. Acute proximal transverse colon diverticulitis, complicated by suspected small adjacent pericolonic abscesses. Radiologist's impression: ITS Impressions Abdomen/Pelvis CT 12/11/24 15:52 IMPRESSION: Moderate esophagitis/gastritis. Acute proximal transverse colon diverticulitis, complicated by suspected small adjacent pericolonic abscesses. Discharge Plan Discharge Clinical Impression: Diverticulitis Patient Disposition: Still a Patient Condition: Stable
[2024-12-11] MEDS: LACTATED RINGERS 1,000 ML 999 ML IV CONT (16:08)
[2024-12-11 16:10] LABS: Add Urine Microscopic? YES; Appearance Urine Clear (Clear); Glucose Urine UA Negative (Negative); Leukocyte Esterase Ur Negative LEU/UL (Negative); Nitrate Urine Negative (Negative); Non Pathogenic Casts 0-2; Specific Grav Ur 1.041 (1.001-1.035)
--- NOTE | 2024-12-11 16:38 | PC.NURSE ---
per EDP Dr. Greenberg, he does not want blood cultures
--- NOTE | 2024-12-11 16:44 | P.HP_ITS ---
H&P: HPI History of Present Illness Date/Time: 12/11/24 16:44 Chief Complaint: Abdominal Pain Narrative: 49 y/o M with PMH of diverticulitis and diverticulosis presents here with abdominal pain and diarrhea. The patient presents here from home on 12/11 for further evaluation of abdominal pain and diarrhea. He reports onset of symptoms approximately 2 days ago. He describes the abdominal pain as lower abdomen, bilateral, sharp, nonradiating, intermittent, no aggravating or alleviating factors. He estimates he has had up to 6 bowel movements times per day for the last 2 days - described as watery. He denies associated hematochezia, fever, chills, or body aches. He has a history of diverticulitis/diverticulosis with last occurrence 8 months ago. He denies any previous abdominal surgical history. He denies any previous colonoscopies, has had a negative Cologuard. Initial VS at presentation: 97.2? F, HR 73, RR 20, 136/88, and 100% on RA. ED workup showed: No leukocytosis, hemoglobin 12.9, sodium 136, glucose 113, creatinine 1.07 and GFR >60, UA showed a high specific gravity otherwise unremarkable. CT of the abdomen/pelvis showed moderate esophagitis/gastritis and acute proximal transverse colon diverticulitis complicated by suspected small adjacent pericolonic abscesses. Review of Systems Review of Systems: All systems reviewed & are unremarkable except as noted in HPI and below PMFSH Past Medical History Medical History Diverticulosis Diverticulitis Surgical History Surgical History Status post rotator cuff repair (~09/29/24) Biceps tenodesis Family History Family History Mother Polysubstance abuse Social History Social History Smoking status: Former smoker Tobacco type: cigarettes Smoking end date: 09/21/08 Additional smoking assessment comments: would smoke about 3-4 times per week quit about 15 years ago Alcohol intake: never Substance use: never Substance use type: does not use Do You Feel Safe in your Home?: Yes Lack of Transportation: No Lack of Food: Never True Current Housing: I Have Housing Concerned About Future Housing: No Difficulty Paying Gas/Electric Bills: No Difficulty Paying for Meds: No Currently Unemployed: No Education: High School Diploma/GED Difficulty w/ Childcare or Family Care: No Living arrangements: with family Gender identity (if verbalized by the patient): Male Sexual Orientation (if Verbalized by the Patient): Straight or Heterosexual Spiritual care concerns: No Meds Home Medications and Allergies Home Medications ?Medication ?Instructions ?Recorded ?Confirmed ?Type ibuprofen 600 mg tablet 600 mg PO TID PRN pain #60 tabs 09/29/24 12/11/24 Rx Allergies Allergy/AdvReac Type Severity Reaction Status Date / Time acetaminophen AdvReac Intermediate Other Verified 12/11/24 18:54 seafood AdvReac Mild Nausea and Uncoded 12/11/24 18:54 Vomiting Vital Signs Vital Signs - 24 hr 12/11/24 12:44 12/11/24 15:00 Temperature 97.2 F L Pulse Rate 73 71 Respiratory Rate 20 16 Blood Pressure 136/88 134/91 H Pulse Oximetry 100 98 Oxygen Delivery Room Air Exam Const: General: comfortable and no acute distress Other: , male, nontoxic appearance HENMT: Face/Nose/Sinus: Normal nares present Mouth: Yes moist mucous membranes Eyes: General: appearance normal, both eyes and all related structures Sclera: sclerae normal Pupils: Equal, round and reactive pupils present EOM: EOMs intact bilaterally Resp: Effort & Inspection: normal respiratory effort Auscultation: clear to auscultation bilaterally Cardio: Rate: regular rate Rhythm: regular rhythm Other: S1-S2 present without murmur, rub, ectopy GI: Other: Abdomen soft, nondistended, nontender. Normoactive bowel sounds in all quadrants. Skin: General skin exam: normal color and no rashes or lesions noted Wounds: no wounds Neuro: Speech: normal speech Motor exam (neuro): 5/5 motor strength present throughout Sensory Exam: normal sensation Other: A&O x4 Extrem: General: normal to inspection Psych: Mental Status: mental status grossly normal Affect: normal affect Other: Good insight and judgment, pleasant H&P: Results Labs Labs: Short CBC 12/11/24 Range/Units 14:50 WBC 7.4 (4.5-10.0) K/mm3 Hgb 12.9 L (14.0-18.0) g/dL Hct 39.1 L (42.0-52.0) % Plt Count 192 (150-375) k/mm3 BMP 12/11/24 14:50 Sodium 136 L Potassium 3.8 Chloride 105 Carbon Dioxide 23 BUN 15 Creatinine 1.07 Glucose 113 H Calcium 8.8 Liver Function 12/11/24 Range/Units 14:50 Total Bilirubin 1.0 (0.2-1.3) mg/dL AST 30 (17-59) U/L ALT 22 (6-50) U/L Alkaline Phosphatase 57 (38-126) U/L Albumin 4.2 (3.5-5.1) g/dL Urine 12/11/24 Range/Units 15:48 Urine Color Yellow (Yellow) Urine Appearance Clear (Clear) Urine pH 5.5 (5.0-9.0) Ur Specific [place] 1.041 H (1.001-1.035) Urine Protein Negative (Negative) mg/dL Urine Glucose (UA) Negative (Negative) mg/dL Assessment and Plan Assessment and plan (1) Diverticulitis of intestine with abscess: Qualifiers: Diverticulitis bleeding: without bleeding Diverticulitis site: large intestine Qualified Code(s): K57.20 - Diverticulitis of large intestine with perforation and abscess without bleeding Code(s): K57.80 - Diverticulitis of intestine, part unspecified, with perforation and abscess without bleeding Status: Acute Assessment and Plan: - CT abd/pelvis: Moderate esophagitis/gastritis. Acute proximal transverse colon diverticulitis, complicated by suspected small adjacent pericolonic abscesses. - possible abscess 1.2 cm -> general surgery consulted - started on Ceftriaxone + Metronidazole on 12/11 - IV fluids: 1L bolus, now on 125 mL/hr - clear liquid diet - pain medication prn - daily clinical reassessment for improvement Plan Diet: Clear liquid GI Prophylaxis: Pantoprazole DVT Prophylaxis: SCDs IV fluids: 1L bolus -> 125 mL/hour Lines/Tubes: Peripheral IV Code Status: Full code Quality VTE Prophylaxis VTE prophylaxis: mechanical ordered Hospitalist MIPS Advance Care Plan I have confirmed that the patient's Advanced Care Plan is present, code status is documented, or surrogate decision maker is listed in patient medical record.: Yes Medication Reconciliation I have utilized all available resources to obtain, update and review the patients current medications (includes all prescriptions, OTC, herbals, cannabis, and nutritional supplements).: Yes
[2024-12-11] MEDS: metroNIDAZOLE 500 MG/ISO 100ML 500 MG/100 ML BAG 100 MG IVPB ×2 (16:55→22:01)
[2024-12-11] MEDS: LACTATED RINGERS 1,000 ML 125 ML IV CONT (16:55)
--- OUTSIDE RECORDS SUMMARY | 2024-12-11 17:30 | XMS_ITS | Clinical Summary ---
Author Organization [facility] Address [address] [place] [address] Care Team Providers Care Steak Tenderizer Machine Name Role Phone Unknown, Provider Primary Care Provider Unavaila ble Source Comments [facility],non-owned Affiliates and Associated Physician Practices is amultiple site organization consisting of ambulatory clinics and hospital sitesin [place], [place], [place] and [place]. This disclosure is being madepursuant to the Care Everywhere program and may not contain all information available regarding this patient. 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 Gender Identity Not on file Sexual Orientation Not on file Last Filed Vital Signs Vital Sign Reading Time Taken Comments Blood Pressure 115/86 05/31/2024 12:03 PM SOFTWARE TEST ANALYST Pulse 110 05/31/2024 12:03 PM SOFTWARE TEST ANALYST Temperature 37.6 C (99.6 F) 05/31/2024 12:03 PM SOFTWARE TEST ANALYST Respiratory Rate 19 05/31/2024 12:03 PM SOFTWARE TEST ANALYST Oxygen Saturation 99% 05/31/2024 12:03 PM SOFTWARE TEST ANALYST Inhaled Oxygen Concentration - - Weight 56.7 kg (125 lb) 05/31/2024 12:03 PM SOFTWARE TEST ANALYST Height 180.3 cm (5' 11) 05/31/2024 12:03 PM SOFTWARE TEST ANALYST Body Mass Index 17.43 05/31/2024 12:03 PM SOFTWARE TEST ANALYST Plan of Treatment Health Maintenance Due Date [...] to complete this topic Insurance Care Teams Steak Tenderizer Machine Relationship Specialty Start Date End Date Unknown, Provider PCP - General 11/04/17
[2024-12-11] MEDS: cefTRIAXone 1 GM in SODIUM CHLORIDE 0.9% IV 50 ML 100 ML IVPB (18:36)
[2024-12-11] MEDS: MORPHINE SULFATE (*CRX) 2 MG/ML INJ IV PUSH ×2 (18:38→22:02)
[2024-12-11 18:45] VITALS: BMI 29.7
--- NOTE | 2024-12-11 18:48 | ADMGEN ---
This patient, Donald Martínez, was admitted to [facility] Surg Room 312-01. Patient/family oriented to hospital policies and general routines including ID bracelet, bed and alarms, visiting hours, pain management, procedures, bathroom and other care routines, personal items, smoking policy, room service/diet, and visiting hours. Information on how to activate the Rapid Response Team has been discussed. Patient/Family are encouraged to report perceived risks to care and to ask questions if they do not understand what they are told or what they should do.
[2024-12-11 18:59] VITALS: BP 132/104; PULSE 55; RESP 16; TEMP 36.3; O2SAT 100
[2024-12-11] MEDS: PANTOPRAZOLE SODIUM IV 40 MG VIAL IV PUSH (19:22)
[2024-12-11] MEDS: CIPROFLOXACIN 400 MG/D5W 200ML 200 ML 200 MG IVPB (19:22)
[2024-12-11 20:46] VITALS: BP 141/96; PULSE 52; RESP 16; TEMP 36.8; O2SAT 100
[2024-12-12] MEDS: LACTATED RINGERS 1,000 ML 125 ML IV CONT ×2 (05:18→09:24)
[2024-12-12 05:20] VITALS: BP 138/93; PULSE 74; RESP 16; TEMP 36.6; O2SAT 98
[2024-12-12] MEDS: metroNIDAZOLE 500 MG/ISO 100ML 500 MG/100 ML BAG 100 MG IVPB ×3 (05:55→22:16)
--- NOTE | 2024-12-12 07:53 | PM.IMPN ---
Progress Note: A&P Assessment and Plan (1) Diverticulitis of intestine with abscess: Qualifiers: Diverticulitis bleeding: without bleeding Diverticulitis site: large intestine Qualified Code(s): K57.20 - Diverticulitis of large intestine with perforation and abscess without bleeding Code(s): K57.80 - Diverticulitis of intestine, part unspecified, with perforation and abscess without bleeding Status: Acute Assessment and Plan: CT abd/pelvis: Moderate esophagitis/gastritis. Acute proximal transverse colon diverticulitis, complicated by suspected small adjacent pericolonic abscesses. - possible abscess 1.2 cm -> general surgery consulted - started on Ceftriaxone + Metronidazole on 12/11 - IV fluids: 1L bolus, now on 125 mL/hr - clear liquid diet. Likely advance today. Surgery consult pending - pain medication prn - daily clinical reassessment for improvement Plan Diet: Clear liquid GI Prophylaxis: Pantoprazole DVT Prophylaxis: SCDs IV fluids: 1L bolus -> 125 mL/hour Lines/Tubes: Peripheral IV Code Status: Full code Time Spent With Patient Time: 57 minutes Subjective Date/time seen: 12/12/24 07:53 Interval history: Pain improved today. No nausea or abdominal pain Surgery consulted for abscesses Had a loose stool yesterday, no BM today Review of Systems Review of Systems: All systems reviewed & are unremarkable except as noted in HPI and below Exam Narrative: General - Awake and alert. No acute distress Eyes - PERRLA, EOM intact ENT - No thrush, No erythema Neck - No noticeable or palpable swelling Lymph Nodes - No lymphadenopathy Cardiovascular - RRR no m/r/g, no JVD Lungs: Clear to auscultation, No wheezing, use of accessory muscles, no crackles Skin - Skin warm and dry, no wounds or rashes Abdomen - Normal bowel sounds, abdomen soft and nontender Extremities - No edema, cyanosis or clubbing Musculoskeletal - 5/5 strength, normal range of motion, no swollen or erythematous joints. Neurological ? Alert and oriented x 3, CN 2-12 grossly intact. Psych: Normal mood and affect Objective Data Vital Signs Vital Signs: Vital Signs - 24 hr 12/11/24 12:44 12/11/24 15:00 12/11/24 18:59 Temperature 97.2 F L 97.4 F L Pulse Rate 73 71 55 L Respiratory Rate 20 16 16 Blood Pressure 136/88 134/91 H 132/104 H Pulse Oximetry 100 98 100 Oxygen Delivery Room Air 12/11/24 20:00 12/11/24 20:46 12/12/24 05:20 Temperature 98.2 F 97.9 F Pulse Rate 52 L 74 Respiratory Rate 16 16 Blood Pressure 141/96 H 138/93 H Pulse Oximetry 100 98 Oxygen Delivery Room Air Intake/Output Intake/Output: Intake & Output 12/09/24 12/10/24 12/11/24 12/12/24 23:59 23:59 23:59 23:59 Intake Total 1200 1550 Balance 1200 1550 Meds/Results Medications: Active Medications Generic Name Dose Route Start Last Admin Trade Name Freq PRN Reason Stop Dose Admin Lactated Ringer's 1,000 mls @ 125 mls/hr 12/11/24 16:40 12/12/24 05:18 Lr - Lactated Ringers Iv IV CONT 125 mls/hr .Q8H KEYA Administration Ceftriaxone Sodium 1 gm/ 50 mls @ 100 mls/hr 12/11/24 18:00 12/11/24 18:36 Sodium Chloride IVPB 100 mls/hr Q24H KEYA Administration Metronidazole 500 mg in 100 mls @ 100 mls/hr 12/11/24 23:00 12/12/24 05:55 Flagyl 500 Mg/Iso Soln 100 Ml IVPB 100 mls/hr Q8HR KEYA Administration Ibuprofen 600 mg 12/11/24 16:55 Ibuprofen 600 Mg Tablet PO Q6H PRN Pain Rated 1-3 Morphine Sulfate 2 mg 12/11/24 16:38 12/11/24 22:02 Morphine Sulfate (*Crx) 2 Mg/Ml Inj IV PUSH 2 mg Q2H PRN Administration Pain Rated 7-10 Ondansetron HCl 4 mg 12/11/24 16:38 Ondansetron Inj 4 Mg/2 Ml Vial IV PUSH Q4H PRN Nausea Pantoprazole Sodium 40 mg 12/11/24 17:00 12/11/24 19:22 Pantoprazole Sodium Iv 40 Mg Vial IV PUSH 40 mg QAM KEYA Administration Radiology Results: ITS Impressions Abdomen/Pelvis CT 12/11/24 15:52 IMPRESSION: Moderate esophagitis/gastritis. Acute proximal transverse colon diverticulitis, complicated by suspected small adjacent pericolonic abscesses. Labs Labs: Laboratory Results - last 24 hr 12/11/24 12/11/24 14:50 15:48 WBC 7.4 RBC 4.46 L Hgb 12.9 L Hct 39.1 L MCV 87.7 MCH 28.9 MCHC 33.0 RDW 13.6 Plt Count 192 MPV 10.4 Immature Gran % (Auto) 0.1 Neut % (Auto) 58.1 Lymph % (Auto) 31.5 [place] % (Auto) 7.7 Eos % (Auto) 2.3 Baso % (Auto) 0.3 Lymph # (Auto) 2.34 [place] # (Auto) 0.6 Eos # (Auto) 0.2 Baso # (Auto) 0.0 Abs Immat Gran (auto) 0.01 Absolute Neuts (auto) 4.3 Absolute Nucleated RBC 0.000 Nucleated RBC % 0.0 Sodium 136 L Potassium 3.8 Chloride 105 Carbon Dioxide 23 Anion Gap 8 BUN 15 Creatinine 1.07 Estim Creat Clear Calc 79 Estimated GFR > 60 Glucose 113 H Calcium 8.8 Total Bilirubin 1.0 AST 30 ALT 22 Alkaline Phosphatase 57 Total Protein 8.2 Albumin 4.2 Lipase 51 Urine Color Yellow Urine Appearance Clear Urine pH 5.5 Ur Specific [place] 1.041 H Urine Protein Negative Urine Glucose (UA) Negative Urine Ketones Negative Ur Blood (Man) Trace Urine Nitrate Negative Urine Bilirubin Negative Urine Urobilinogen 0.2 Leukocyte Esterase Rfl Negative Urine RBC 0-2 Urine WBC 0-5 Ur Squamous Epith Cells None seen Urine Bacteria None seen Urine Casts 0-2 Quality VTE Prophylaxis VTE prophylaxis: mechanical ordered Hospitalist MIPS Advance Care Plan I have confirmed that the patient's Advanced Care Plan is present, code status is documented, or surrogate decision maker is listed in patient medical record.: Yes Medication Reconciliation I have utilized all available resources to obtain, update and review the patients current medications (includes all prescriptions, OTC, herbals, cannabis, and nutritional supplements).: Yes
[2024-12-12 08:00] VITALS: O2SAT 98
[2024-12-12] MEDS: PANTOPRAZOLE SODIUM IV 40 MG VIAL IV PUSH (09:24)
[2024-12-12 10:35] LABS: Hematocrit 38.2 % (42.0-52.0); Hemoglobin 12.4 g/dL (14.0-18.0); Mean Corpuscular HGB Conc 32.5 g/dl (32-36); Mean Corpuscular Hemoglobin 28.4 pg (26-34); Mean Corpuscular Volume 87.6 fl (80-100); Platelet Count Result 198 k/mm3 (150-375); Red Blood Count 4.36 M/mm3 (4.6-6.20); White Blood Count 4.3 K/mm3 (4.5-10.0)
[2024-12-12 12:09] LABS: Estimated CRCL calculation 71 ml/min; Estimated Glomerular Filt Rate > 60
--- NOTE | 2024-12-12 13:10 | P.CONGS_ITS ---
Assessment and Plan Assessment and plan (1) Diverticulitis of intestine with abscess: Qualifiers: Diverticulitis site: large intestine Diverticulitis bleeding: without bleeding Qualified Code(s): K57.20 - Diverticulitis of large intestine with perforation and abscess without bleeding Code(s): K57.80 - Diverticulitis of intestine, part unspecified, with perforation and abscess without bleeding Status: Acute Assessment and Plan: * Patient presented with 2 days of lower abdominal pain and diarrhea. CT showed evidence of acute transverse diverticulitis with a fecalith within a diverticulum and a small, less than 2 cm, adjacent abscess. He is already clinically improving. He has not having any abdominal pain today and is nontender on my exam. WBC count was normal on admission, will repeat labs this morning. Continue IV antibiotics and will start advancing his diet as tolerated. Will consult the dietitian for education on dietary restrictions moving forward. No indication for surgical intervention at this time. Discussed with the patient that if he continues to improve, then he will eventually need a colonoscopy in 4-6 weeks. Plan I have discussed the patient's case and plan of care with Dr. Rodríguez. Thank you for allowing us to see the patient in consultation and we will continue to follow along with you. History of Present Illness Consult details Consult date: 12/12/24 Reason for consult: other (Diverticulitis with abscess) Requesting physician: Joanne Cote APRN Narrative: This is a 49-year-old man with history of diverticulitis, who we have been asked to see in surgical consultation for diverticulitis with abscess. He reports an onset of mild lower abdominal pain starting 3 days ago. He also noticed loose stools. He has been having about 5-6 stools/per day. His pain was progressing and became more severe, therefore he came into the ED for evaluation. Labs showed a normal WBC count. CT scan of abdomen/pelvis showed acute proximal transverse colon diverticulitis complicated by suspected small adjacent pericolonic abscesses. The patient was admitted and started on IV ceftriaxone and metronidazole. He was started on a clear liquid diet. Our service has been consulted. He reports 1 episode of diverticulitis treated with outpatient oral antibiotics in July of 2024. CT scan at that time showed descending colitis versus diverticulitis and wall thickening of the transverse colon. Patient has never had a colonoscopy. No known family history of diverticulitis or colorectal cancer. Review of Systems 2 Review of Systems: All systems reviewed & are unremarkable except as noted in HPI and below PMFSH Past Medical History Medical History Diverticulosis Diverticulitis Surgical History Surgical History Status post rotator cuff repair (~09/29/24) Biceps tenodesis Family History Family History Mother Polysubstance abuse Social History Social History Smoking status: Former smoker Tobacco type: cigarettes Smoking end date: 09/21/08 Additional smoking assessment comments: would smoke about 3-4 times per week quit about 15 years ago Alcohol intake: never Substance use: never Substance use type: does not use Do You Feel Safe in your Home?: Yes Lack of Transportation: No Lack of Food: Never True Current Housing: I Have Housing Concerned About Future Housing: No Difficulty Paying Gas/Electric Bills: No Difficulty Paying for Meds: No Currently Unemployed: No Education: High School Diploma/GED Difficulty w/ Childcare or Family Care: No Living arrangements: with family Gender identity (if verbalized by the patient): Male Sexual Orientation (if Verbalized by the Patient): Straight or Heterosexual Spiritual care concerns: No Meds Home Medications and Allergies Home Medications ?Medication ?Instructions ?Recorded ?Confirmed ?Type ibuprofen 600 mg tablet 600 mg PO TID PRN pain #60 tabs 09/29/24 12/11/24 Rx Allergies Allergy/AdvReac Type Severity Reaction Status Date / Time acetaminophen AdvReac Intermediate Other Verified 12/11/24 18:54 seafood AdvReac Mild Nausea and Uncoded 12/11/24 18:54 Vomiting Vital Signs Vital Signs - 24 hr 12/11/24 15:00 12/11/24 18:59 12/11/24 20:00 Temperature 97.4 F L Pulse Rate 71 55 L Respiratory Rate 16 16 Blood Pressure 134/91 H 132/104 H Pulse Oximetry 98 100 Oxygen Delivery Room Air 12/11/24 20:46 12/12/24 05:20 Temperature 98.2 F 97.9 F Pulse Rate 52 L 74 Respiratory Rate 16 16 Blood Pressure 141/96 H 138/93 H Pulse Oximetry 100 98 Oxygen Delivery Exam 2 Const: General: comfortable and no acute distress Nutritional Appearance: a verage body habitus Orientation/consciousness: patient oriented x3 HENMT: Head: normocephalic and atraumatic Ears: hearing grossly normal bilaterally Mouth: Yes moist mucous membranes Eyes: General: appearance normal, both eyes and all related structures P upils: Equal, round and reactive pupils present Neck: Neck: normal visual inspection and full ROM Resp: Effort & Inspection: no respiratory distress Auscultation: clear to auscultation bilaterally Cardio: Rate: regular rate Rhythm: regular rhythm Peripheral pulses: P eripheral pulses 2+ throughout GI: Inspection: non-distended GI Palp: Yes Soft to palpation, No Tenderness to palpation present (GI), No Guarding due to palpation present (GI), Yes No hepatosplenomegaly present and No Rebound tenderness present Percussion: Yes normal to percussion Auscultation: normal bowel sounds Rectal Exam: d eferred Skin: General skin exam: normal color Neuro: General: moves all extremities and no focal motor deficits Speech: n ormal speech Motor exam (neuro): 5/5 motor strength present throughout Extrem: General: normal to inspection and no edema Psych: Mental Status: mental status grossly normal Attitude: cooperative Insight: Good insight present (Psych) Judgement: Good judgement present (Psych) Results Labs 12/12/24 10:31 12/11/24 15:11 Labs: Abnormal lab results 12/11/24 12/11/24 12/12/24 Range/Units 14:50 15:48 10:31 WBC 4.3 L (4.5-10.0) K/mm3 RBC 4.46 L 4.36 L (4.6-6.20) M/mm3 Hgb 12.9 L 12.4 L (14.0-18.0) g/dL Hct 39.1 L 38.2 L (42.0-52.0) % Sodium 136 L (137-145) mmol/L Glucose 113 H (65-110) mg/dL Ur Specific [place] 1.041 H (1.001-1.035) Diabetes panel 12/11/24 12/11/24 Range/Units 14:50 15:11 Sodium 136 L (137-145) mmol/L Potassium 3.8 (3.4-5.0) mmol/L Chloride 105 (98-107) mmol/L Carbon Dioxide 23 (22-30) mmol/L BUN 15 (9-20) mg/dL Creatinine 1.07 1.20 (0.7-1.3) mg/dL Glucose 113 H (65-110) mg/dL Calcium 8.8 (8.4-10.2) mg/dL AST 30 (17-59) U/L ALT 22 (6-50) U/L Alkaline Phosphatase 57 (38-126) U/L Total Protein 8.2 (6.3-8.2) g/dL Albumin 4.2 (3.5-5.1) g/dL Calcium panel 12/11/24 Range/Units 14:50 Calcium 8.8 (8.4-10.2) mg/dL Albumin 4.2 (3.5-5.1) g/dL Pituitary panel 12/11/24 12/11/24 Range/Units 14:50 15:11 Sodium 136 L (137-145) mmol/L Potassium 3.8 (3.4-5.0) mmol/L Chloride 105 (98-107) mmol/L Carbon Dioxide 23 (22-30) mmol/L BUN 15 (9-20) mg/dL Creatinine 1.07 1.20 (0.7-1.3) mg/dL Glucose 113 H (65-110) mg/dL Calcium 8.8 (8.4-10.2) mg/dL Adrenal panel 12/11/24 12/11/24 Range/Units 14:50 15:11 Sodium 136 L (137-145) mmol/L Potassium 3.8 (3.4-5.0) mmol/L Chloride 105 (98-107) mmol/L Carbon Dioxide 23 (22-30) mmol/L BUN 15 (9-20) mg/dL Creatinine 1.07 1.20 (0.7-1.3) mg/dL Glucose 113 H (65-110) mg/dL Calcium 8.8 (8.4-10.2) mg/dL Total Bilirubin 1.0 (0.2-1.3) mg/dL AST 30 (17-59) U/L ALT 22 (6-50) U/L Alkaline Phosphatase 57 (38-126) U/L Total Protein 8.2 (6.3-8.2) g/dL Albumin 4.2 (3.5-5.1) g/dL All other labs normal. Imaging Additional studies: ITS Impressions Abdomen/Pelvis CT 12/11/24 15:52 IMPRESSION: Moderate esophagitis/gastritis. Acute proximal transverse colon diverticulitis, complicated by suspected small adjacent pericolonic abscesses.
[2024-12-12 14:00] VITALS: BP 136/88; PULSE 59; RESP 16; TEMP 36.9; O2SAT 100
--- NOTE | 2024-12-12 14:29 | ECG_ITS ---
Test Date: 2024-12-12 14:42:15 Measurements Intervals [place] Rate: 57 P: 52 [place]: 152 QRS: 21 QRSD: 86 T: 8 QT: 425 QTc: 416 Interpretive Statements SINUS BRADYCARDIA BORDERLINE ST-T WAVE ABNORMALITY- INFERIOR LEADS BASELINE ARTIFACT- I, II AVR, AVL, AVF, V1 BORDERLINE ECG No previous ECG available for comparison Electronically Signed On 12-12-2024 15:01:44 CDT by Tarik Fuentes D.O.
[2024-12-12 14:50] VITALS: O2SAT 100
[2024-12-12] MEDS: CALCIUM CARBONATE (TUMS) 500 MG (200 MG ELEMENTAL) PO (15:41)
[2024-12-12] MEDS: cefTRIAXone 1 GM in SODIUM CHLORIDE 0.9% IV 50 ML 100 ML IVPB (17:37)
[2024-12-12] MEDS: IBUPROFEN 600 MG TABLET PO (17:38)
[2024-12-12 20:50] VITALS: BP 142/94; PULSE 68; RESP 20; TEMP 36.6; O2SAT 97
[2024-12-12 23:32] VITALS: PULSE 65; RESP 20; O2SAT 98
[2024-12-13 05:13] VITALS: BP 142/87; PULSE 62; RESP 16; TEMP 37.2; O2SAT 100
[2024-12-13] MEDS: metroNIDAZOLE 500 MG/ISO 100ML 500 MG/100 ML BAG 100 MG IVPB (06:04)
[2024-12-13 08:00] VITALS: O2SAT 100
--- NOTE | 2024-12-13 09:00 | PM.IMPN ---
Progress Note: A&P Assessment and Plan (1) Diverticulitis of intestine with abscess: Qualifiers: Diverticulitis site: large intestine Diverticulitis bleeding: without bleeding Qualified Code(s): K57.20 - Diverticulitis of large intestine with perforation and abscess without bleeding Code(s): K57.80 - Diverticulitis of intestine, part unspecified, with perforation and abscess without bleeding Status: Acute Assessment and Plan: CT abd/pelvis: Moderate esophagitis/gastritis. Acute proximal transverse colon diverticulitis, complicated by suspected small adjacent pericolonic abscesses. - possible abscess 1.2 cm -> general surgery consulted - started on Ceftriaxone + Metronidazole on 12/11 - IV fluids: 1L bolus, now on 125 mL/hr - Advanced to low residue diet. -- Surgery following, appreciate recommendations - pain medication prn - daily clinical reassessment for improvement Plan Diet: Clear liquid GI Prophylaxis: Pantoprazole DVT Prophylaxis: SCDs IV fluids: 1L bolus -> 125 mL/hour Lines/Tubes: Peripheral IV Code Status: Full code Subjective Date/time seen: 12/13/24 09:00 Interval history: Pain improved today. No nausea or abdominal pain Surgery following Labs pending Review of Systems Review of Systems: All systems reviewed & are unremarkable except as noted in HPI and below Exam Narrative: General - Awake and alert. No acute distress Eyes - PERRLA, EOM intact ENT - No thrush, No erythema Neck - No noticeable or palpable swelling Lymph Nodes - No lymphadenopathy Cardiovascular - RRR no m/r/g, no JVD Lungs: Clear to auscultation, No wheezing, use of accessory muscles, no crackles Skin - Skin warm and dry, no wounds or rashes Abdomen - Normal bowel sounds, abdomen soft and nontender Extremities - No edema, cyanosis or clubbing Musculoskeletal - 5/5 strength, normal range of motion, no swollen or erythematous joints. Neurological ? Alert and oriented x 3, CN 2-12 grossly intact. Psych: Normal mood and affect Objective Data Vital Signs Vital Signs: Vital Signs - 24 hr 12/12/24 14:00 12/12/24 14:50 12/12/24 20:00 Temperature 98.4 F Pulse Rate 59 L Respiratory Rate 16 Blood Pressure 136/88 Pulse Oximetry 100 100 Oxygen Delivery Room Air Room Air Fraction of Inspired Oxygen 12/12/24 20:50 12/12/24 23:32 12/13/24 05:13 Temperature 97.9 F 98.9 F Pulse Rate 68 65 62 Respiratory Rate 20 20 16 Blood Pressure 142/94 H 142/87 H Pulse Oximetry 97 98 100 Oxygen Delivery Room Air Fraction of Inspired Oxygen 21 Intake/Output Intake/Output: Intake & Output 12/10/24 12/11/24 12/12/24 12/13/24 23:59 23:59 23:59 23:59 Intake Total 1250 2782.5 550 Balance 1250 2782.5 550 Meds/Results Medications: Active Medications Generic Name Dose Route Start Last Admin Trade Name Freq PRN Reason Stop Dose Admin Ceftriaxone Sodium 1 gm/ 50 mls @ 100 mls/hr 12/11/24 18:00 12/12/24 17:37 Sodium Chloride IVPB 100 mls/hr Q24H KEYA Administration Metronidazole 500 mg in 100 mls @ 100 mls/hr 12/11/24 23:00 12/13/24 06:04 Flagyl 500 Mg/Iso Soln 100 Ml IVPB 100 mls/hr Q8HR KEYA Administration Ibuprofen 600 mg 12/11/24 16:55 12/12/24 17:38 Ibuprofen 600 Mg Tablet PO 600 mg Q6H PRN Administration Pain Rated 1-3 Morphine Sulfate 2 mg 12/11/24 16:38 12/11/24 22:02 Morphine Sulfate (*Crx) 2 Mg/Ml Inj IV PUSH 2 mg Q2H PRN Administration Pain Rated 7-10 Ondansetron HCl 4 mg 12/11/24 16:38 Ondansetron Inj 4 Mg/2 Ml Vial IV PUSH Q4H PRN Nausea Pantoprazole Sodium 40 mg 12/11/24 17:00 12/12/24 09:24 Pantoprazole Sodium Iv 40 Mg Vial IV PUSH 40 mg QAM KEYA Administration Radiology Results: ITS Impressions Abdomen/Pelvis CT 12/11/24 15:52 IMPRESSION: Moderate esophagitis/gastritis. Acute proximal transverse colon diverticulitis, complicated by suspected small adjacent pericolonic abscesses. Labs Labs: Laboratory Results - last 24 hr 12/11/24 12/12/24 15:11 10:31 WBC 4.3 L RBC 4.36 L Hgb 12.4 L Hct 38.2 L MCV 87.6 MCH 28.4 MCHC 32.5 RDW 13.4 Plt Count 198 MPV 10.0 Creatinine 1.20 Estim Creat Clear Calc 71 Estimated GFR > 60 Quality VTE Prophylaxis VTE prophylaxis: mechanical ordered
[2024-12-13] MEDS: PANTOPRAZOLE SODIUM IV 40 MG VIAL IV PUSH (09:16)
--- NOTE | 2024-12-13 09:48 | P.DS_ITS ---
DS: Admitting Diagnosis Discharge Date 12/13/2024 Admitting Diagnosis Acute Diverticulitis DS: Discharge Diagnosis Discharge Diagnosis (1) Diverticulitis of intestine with abscess: Qualifiers: Diverticulitis bleeding: without bleeding Diverticulitis site: large intestine Qualified Code(s): K57.20 - Diverticulitis of large intestine with perforation and abscess without bleeding Code(s): K57.80 - Diverticulitis of intestine, part unspecified, with perforation and abscess without bleeding Status: Acute (2) Gastritis: Code(s): K29.70 - Gastritis, unspecified, without bleeding Status: Acute DS: Summary Hospital Course Reason for hospitalization: Copied from [facility] 12/11: 49 y/o M with PMH of diverticulitis and diverticulosis presents here with abdominal pain and diarrhea. The patient presents here from home on 12/11 for further evaluation of abdominal pain and diarrhea. He reports onset of symptoms approximately 2 days ago. He describes the abdominal pain as lower abdomen, bilateral, sharp, nonradiating, intermittent, no aggravating or alleviating factors. He estimates he has had up to 6 bowel movements times per day for the last 2 days - described as watery. He denies associated hematochezia, fever, chills, or body aches. He has a history of diverticulitis/diverticulosis with last occurrence 8 months ago. He denies any previous abdominal surgical history. He denies any previous colonoscopies, has had a negative Cologuard. Initial VS at presentation: 97.2? F, HR 73, RR 20, 136/88, and 100% on RA. ED workup showed: No leukocytosis, hemoglobin 12.9, sodium 136, glucose 113, creatinine 1.07 and GFR >60, UA showed a high specific gravity otherwise unremarkable. CT of the abdomen/pelvis showed moderate esophagitis/gastritis and acute proximal transverse colon diverticulitis complicated by suspected small adjacent pericolonic abscesses. Hospital Course: Diverticulitis of intestine with abscess: 12/11 CT abd/pelvis: Moderate esophagitis/gastritis. Acute proximal transverse colon diverticulitis, complicated by suspected small adjacent pericolonic abscesses. Possible abscess 1.2 cm, general surgery consulted. Started on Ceftriaxone + Metronidazole on 12/11. Started on IV fluids and a clear liquid diet. Tolerating diet so advanced to low fiber and eating well. Having BM's Follow up with surgery in 2 weeks. GI follow up per surgery or PCP for colonoscopy Esophagitis/gastritis --Noted on CT, consider endoscopy --Started a PPI daily for 8 weeks --Avoid NSAIDs. Reported intolerance to tylenol --Further workup and Follow up with PCP Status at Discharge Cognitive/behavioral status at discharge: A&Ox4 Time Spent with Patient Time attestation: Total time spent providing and/or coordinating discharge services: 42 minutes Exam Narrative: General - Awake and alert. No acute distress Eyes - PERRLA, EOM intact ENT - No thrush, No erythema Neck - No noticeable or palpable swelling Lymph Nodes - No lymphadenopathy Cardiovascular - RRR no m/r/g, no JVD Lungs: Clear to auscultation, No wheezing, use of accessory muscles, no crackles Skin - Skin warm and dry, no wounds or rashes Abdomen - Normal bowel sounds, abdomen soft and nontender Extremities - No edema, cyanosis or clubbing Musculoskeletal - 5/5 strength, normal range of motion, no swollen or erythematous joints. Neurological ? Alert and oriented x 3, CN 2-12 grossly intact. Psych: Normal mood and affect DS: Data Data Completed and Pending Labs on day of discharge: Labs from last 24 hours 12/13/24 12/12/24 12/11/24 09:33 10:31 15:11 WBC Pending 4.3 L RBC Pending 4.36 L Hgb Pending 12.4 L Hct Pending 38.2 L MCV Pending 87.6 MCH Pending 28.4 MCHC Pending 32.5 RDW Pending 13.4 Plt Count Pending 198 MPV Pending 10.0 Immature Gran % (Auto) Pending Neut % (Auto) Pending Lymph % (Auto) Pending [place] % (Auto) Pending Eos % (Auto) Pending Baso % (Auto) Pending Lymph # (Auto) Pending [place] # (Auto) Pending Eos # (Auto) Pending Baso # (Auto) Pending Abs Immat Gran (auto) Pending Absolute Neuts (auto) Pending Absolute Nucleated RBC Pending Nucleated RBC % Pending ESR Pending Sodium Pending Potassium Pending Chloride Pending Carbon Dioxide Pending Anion Gap Pending BUN Pending Creatinine Pending 1.20 Estim Creat Clear Calc Pending 71 Estimated GFR Pending > 60 Glucose Pending Calcium Pending Phosphorus Pending Magnesium Pending C-Reactive Protein Pending Discharge Plan Discharge Attending physician on discharge: Ria Khan Consulting providers: Ria Khan; Iglesia Rodríguez Discharging Clinician: Ria Khan Anticipated Discharge Date/Time: 12/13/24 09:41 Patient Disposition: Home Activity: may shower Diet: low fiber Discharge Instructions: Follow up with your PCP in 2 weeks. 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 Avoid NSAIDs (ibuprofen, naproxen). Talk to your PCP about alternative medications for pain. You will need follow up with GI for a colonoscopy and possible upper endoscopy * Follow a low-fiber diet for 2 weeks. Then transition to a high-fiber diet if feeling well. 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 Rodríguez in 2 weeks. Call to make an appointment. [phone] * Call the surgeon sooner or go to the ED, if you develop worsening abdominal pain, fever, or vomiting. Patient Instructions: Antibiotic Form Patient Language: Amharic Stand Alone Forms: General Discharge Information Follow-up/Referrals: Catrachito Pederson M.D. [Primary Care Provider] - 2 Weeks Iglesia Rodríguez MD [Physician] - 2 Weeks Discharge Medications: New amoxicillin-pot clavulanate 875-125 mg tablet 1 tablet PO Q12H Qty: 28 0RF metronidazole 500 mg tablet 500 mg PO Q8H Qty: 42 0RF pantoprazole 40 mg tablet,delayed release (DR/EC) 40 mg PO QAM Qty: 60 0RF Discontinued ibuprofen 600 mg tablet 600 mg PO TID PRN (Reason: pain) Qty: 60 0RF Date of admission: 12/11/24 16:38 Primary Care Provider: Catrachito Pederson Admitting Provider: Bernardo Capps Attending physician on admission: Bernardo Capps Condition: Stable Quality VTE Prophylaxis VTE prophylaxis: pharmacologic ordered Hospitalist MIPS Heart Failure (Exclusion) Patient has history of Heart Transplant or Left Ventricular Assistive Device?: No IF YES, STOP HERE Heart Failure (Qualifier) Patient has current or prior documentation of LVEF less than or equal to 40%, or mod/servere depressed LVSF?: No IF NO, STOP HERE
[2024-12-13 09:50] LABS: Hematocrit 39.6 % (42.0-52.0); Hemoglobin 13.3 g/dL (14.0-18.0); Immature Granulocyte Percent A 0.0 % (0-0.5); Lymphocytes Absolute Auto 1.38 K/mm3 (0.9-3.2); Mean Corpuscular HGB Conc 33.6 g/dl (32-36); Mean Corpuscular Hemoglobin 29.0 pg (26-34); Mean Corpuscular Volume 86.5 fl (80-100); Nucleated Red Blood Cells Absolute Auto 0.000 K/mm3 (0.0-0.012); Nucleated Red Blood Cells Perc 0.0 % (0.0-0.2); Platelet Count Result 212 k/mm3 (150-375); Red Blood Count 4.58 M/mm3 (4.6-6.20); White Blood Count 3.8 K/mm3 (4.5-10.0)
[2024-12-13 10:23] LABS: Anion Gap 8 mmol/L (4-12); Blood Urea Nitrogen 8 mg/dL (9-20); CRP 3.8 mg/dL (<1.0); Calcium 9.0 mg/dL (8.4-10.2); Carbon Dioxide 25 mmol/L (22-30); Chloride 105 mmol/L (98-107); Estimated CRCL calculation 86 ml/min; Estimated Glomerular Filt Rate > 60; Glucose 123 mg/dL (65-110); Magnesium 2.0 mg/dL (1.6-2.3); Potassium 3.8 mmol/L (3.4-5.0); Sodium 138 mmol/L (137-145)
--- NOTE | 2024-12-13 10:29 | PM.PNGS ---
Progress Note: A&P Assessment and Plan (1) Diverticulitis of intestine with abscess: Qualifiers: Diverticulitis site: large intestine Diverticulitis bleeding: without bleeding Qualified Code(s): K57.20 - Diverticulitis of large intestine with perforation and abscess without bleeding Code(s): K57.80 - Diverticulitis of intestine, part unspecified, with perforation and abscess without bleeding Status: Acute Assessment and Plan: Clinically improving. No longer having any abdominal pain or tenderness. Tolerating a low-fiber diet. Surgically stable for discharge today on oral antibiotics and a low-fiber diet. Follow-up with Dr. Rodríguez in a few weeks and will plan to refer him for a colonoscopy at that time. Plan I have discussed the patient's case and plan of care with Dr. Rodríguez. Subjective Subjective Date/Time Seen: 12/13/24 09:29 Patient reports: no new complaints, feels better, tolerating a regular diet, flatus, bowel movement and afebrile Interval history: Patient doing well today. Denies any abdominal pain, nausea, or vomiting. Tolerating a low-fiber diet this morning. Bowels are moving. Exam GI: Inspection: non-distended GI Palp: Yes Soft to palpation, No Tenderness to palpation present (GI), No Guarding due to palpation present (GI) and No Rebound tenderness present Auscultation: normal bowel sounds Objective Data Vital Signs Vital Signs: Vital Signs - 24 hr 12/12/24 14:00 12/12/24 14:50 12/12/24 20:00 Temperature 98.4 F Pulse Rate 59 L Respiratory Rate 16 Blood Pressure 136/88 Pulse Oximetry 100 100 Oxygen Delivery Room Air Room Air Fraction of Inspired Oxygen 12/12/24 20:50 12/12/24 23:32 12/13/24 05:13 Temperature 97.9 F 98.9 F Pulse Rate 68 65 62 Respiratory Rate 20 20 16 Blood Pressure 142/94 H 142/87 H Pulse Oximetry 97 98 100 Oxygen Delivery Room Air Fraction of Inspired Oxygen 21 Intake/Output Intake/Output: Intake & Output 12/10/24 12/11/24 12/12/24 12/13/24 23:59 23:59 23:59 23:59 Intake Total 1250 2782.5 790 Balance 1250 2782.5 790 Meds/Results Medications: Active Medications Generic Name Dose Route Start Last Admin Trade Name Freq PRN Reason Stop Dose Admin Ceftriaxone Sodium 1 gm/ 50 mls @ 100 mls/hr 12/11/24 18:00 12/12/24 17:37 Sodium Chloride IVPB 100 mls/hr Q24H KEYA Administration Metronidazole 500 mg in 100 mls @ 100 mls/hr 12/11/24 23:00 12/13/24 06:04 Flagyl 500 Mg/Iso Soln 100 Ml IVPB 100 mls/hr Q8HR KEYA Administration Ibuprofen 600 mg 12/11/24 16:55 12/12/24 17:38 Ibuprofen 600 Mg Tablet PO 600 mg Q6H PRN Administration Pain Rated 1-3 Morphine Sulfate 2 mg 12/11/24 16:38 12/11/24 22:02 Morphine Sulfate (*Crx) 2 Mg/Ml Inj IV PUSH 2 mg Q2H PRN Administration Pain Rated 7-10 Ondansetron HCl 4 mg 12/11/24 16:38 Ondansetron Inj 4 Mg/2 Ml Vial IV PUSH Q4H PRN Nausea Pantoprazole Sodium 40 mg 12/11/24 17:00 12/13/24 09:16 Pantoprazole Sodium Iv 40 Mg Vial IV PUSH 40 mg QAM KEYA Administration Radiology Results: ITS Impressions Abdomen/Pelvis CT 12/11/24 15:52 IMPRESSION: Moderate esophagitis/gastritis. Acute proximal transverse colon diverticulitis, complicated by suspected small adjacent pericolonic abscesses. Labs Labs: Laboratory Results - last 24 hr 12/11/24 12/12/24 12/13/24 15:11 10:31 09:33 WBC 4.3 L 3.8 L RBC 4.36 L 4.58 L Hgb 12.4 L 13.3 L Hct 38.2 L 39.6 L MCV 87.6 86.5 MCH 28.4 29.0 MCHC 32.5 33.6 RDW 13.4 13.2 Plt Count 198 212 MPV 10.0 10.3 Immature Gran % (Auto) 0.0 Neut % (Auto) 51.7 Lymph % (Auto) 36.2 [place] % (Auto) 7.1 Eos % (Auto) 4.7 H Baso % (Auto) 0.3 Lymph # (Auto) 1.38 [place] # (Auto) 0.3 Eos # (Auto) 0.2 Baso # (Auto) 0.0 Abs Immat Gran (auto) 0.00 Absolute Neuts (auto) 2.0 Absolute Nucleated RBC 0.000 Nucleated RBC % 0.0 ESR 37 H Sodium 138 Potassium 3.8 Chloride 105 Carbon Dioxide 25 Anion Gap 8 BUN 8 L D Creatinine 1.20 0.98 Estim Creat Clear Calc 71 86 Estimated GFR > 60 > 60 Glucose 123 H Calcium 9.0 Phosphorus 3.2 Magnesium 2.0 C-Reactive Protein 3.8 H
== END 2024-12-13 11:35 | disposition home or self-care (01) ==
LOC: ANHED 15:34 → ANH3MEDSUR 17:28
PROVIDERS: Nurse Practitioner Acute Care; Nurse Practitioner Family; Admitting Provider General Practice; Emergency Provider Student in an Organized Health Care Education/Training Program; PCP Internal Medicine Infectious Disease; Visit Provider General Practice
DX: K57.20 Diverticulitis of large intestine with perforation and abscess without bleeding (principal); K29.70 Gastritis, unspecified, without bleeding; Z87.891 Personal history of nicotine dependence
CPT/HCPCS: 36415; 74177; 80048; 80053; 81001; 82565; 83690; 83735; 84100; 85025; 85027; 85652; 86140; 93005; 96361; 96365; 96366; 96367; 96374; 96375; 99285; A9270; G0378; G0379; J0696; J0744; J1836; J2270; J2470; J7120; Q9967

== ENCOUNTER 2025-04-03 10:14 | Day surgery (SDC) | payer OTHER, SELFPAY ==
[2025-04-03 10:30] VITALS: BP 128/92; PULSE 62; RESP 18; TEMP 37.1; O2SAT 100
[2025-04-03] MEDS: LACTATED RINGERS 1,000 ML 150 ML IV CONT (10:52)
--- NOTE | 2025-04-03 11:26 | P.PNAN_ITS ---
Anes - Initial Pre Proc Eval Procedure: Operation Date: 04/03/25 11:30 Proposed Procedures p Diagnostic Colonoscopy - Dank Rhoades DO Date/Time: 04/03/25 11:26 Surgeon: Dank Rhoades DO Pre Op Diagnosis: Transverse Colon Diverticulitis Patient Data Age: 49 Gender: M Height: 1.8 m Weight: 94.6 kg Last Vital Signs Temp 98.7 F 04/03/25 10:30 Pulse 62 04/03/25 10:30 Resp 18 04/03/25 10:30 BP 128/92 H 04/03/25 10:30 Pulse Ox 100 04/03/25 10:30 O2 Del Method Room Air 04/03/25 10:30 Allergies Allergy/AdvReac Type Severity Reaction Status Date / Time acetaminophen AdvReac Intermediate Itching Verified 04/03/25 10:28 seafood AdvReac Mild Nausea and Uncoded 01/24/25 09:35 Vomiting Home Medications ?Medication ?Instructions ?Recorded ?Confirmed ?Type bisacodyl 5 mg tablet,delayed 5 mg PO ONCE #4 tabs 04/03/25 Rx release magnesium citrate 296 ml PO DAILY #296 mL 03/1204/03/25 Rx polyethylene glycol 3350 17 gram 238 g PO DAILY #1 ea 03/30/25 04/03/25 Rx oral powder packet Patient hx anesthesia problems: none Family hx anesthesia problems: none Results Review: All pre-operative results and documents have been reviewed as part of the pre- operative evaluation. [facility] Past Medical History Medical History Diverticulosis Diverticulitis Surgical History Surgical History Status post rotator cuff repair (~09/29/24) Biceps tenodesis Family History Family History Mother Polysubstance abuse Social History Social History Smoking status: Former smoker Tobacco type: cigarettes Smoking end date: 09/21/08 Additional smoking assessment comments: would smoke about 3-4 times per week quit about 15 years ago Alcohol intake: never Substance use: never Substance use type: does not use Do You Feel Safe in your Home?: Yes Lack of Transportation: No Lack of Food: Never True Current Housing: I Have Housing Concerned About Future Housing: No Difficulty Paying Gas/Electric Bills: No Difficulty Paying for Meds: No Currently Unemployed: No Education: High School Diploma/GED Difficulty w/ Childcare or Family Care: No Living arrangements: with family Gender identity (if verbalized by the patient): Male Sexual Orientation (if Verbalized by the Patient): Straight or Heterosexual Spiritual care concerns: No Anes - Eval Final PreProcedure Day of Procedure 04/03/25 11:26 Heart: regular rate and rhythm Lungs: clear to auscultation Airway: Mallampati scale class II Neurological: alert and oriented Last oral intake: >/= 8 hours ASA classification: II Anesthetic plan: proceed Anesthesia type and monitoring: general Results Review: All pre-operative results and documents have been reviewed as part of the pre- operative evaluation. Informed Consent: The patient's anesthetic plan and its attendant risks and benefits were discussed with the patient/family/POA. Questions were solicited and answers provided to the satisfaction of the patient/family/POA.
--- NOTE | 2025-04-03 11:42 | PM.IMHP ---
H&P: HPI History of Present Illness Date/Time: 04/03/25 11:42 Chief Complaint: Diverticulits Narrative: 49 yo presents for colonoscopy. Recently had diverticulitis. No prior scope. Denies fam hx colon cancer. No hematochezia/melena/abd pain. Review of Systems Review of Systems: All systems reviewed & are unremarkable except as noted in HPI and below Constitutional: Constitutional: Denies chills, Denies fever(s), Denies headache(s) and Denies weight loss Eyes: Eyes: Denies change in vision ENT: Denies dizziness, Denies headache(s), Denies neck mass and Denies throat swelling Cardiovascular: Cardiovascular: Denies chest pain, Denies lightheadedness and Denies dyspnea Respiratory: Respiratory: Denies cough, Denies dyspnea and Denies wheezing Gastrointestinal: Gastrointestinal: Denies abdominal pain, Denies change in bowel habits, Denies nausea and Denies vomiting Genitourinary: Genitourinary: Denies hematuria and Denies dysuria Musculoskeletal: Musculoskeletal: Reports as per HPI Integumentary/Breasts: Skin/Breast: Reports as per HPI Neurologic: Denies dizziness and Denies headache(s) Allergic/Immunologic: Allergic/Immunologic: Denies throat swelling and Denies wheezing PMFSH Past Medical History Medical History Diverticulosis Diverticulitis Surgical History Surgical History Status post rotator cuff repair (~09/29/24) Biceps tenodesis Family History Family History Mother Polysubstance abuse Social History Social History Smoking status: Former smoker Tobacco type: cigarettes Smoking end date: 09/21/08 Additional smoking assessment comments: would smoke about 3-4 times per week quit about 15 years ago Alcohol intake: never Substance use: never Substance use type: does not use Do You Feel Safe in your Home?: Yes Lack of Transportation: No Lack of Food: Never True Current Housing: I Have Housing Concerned About Future Housing: No Difficulty Paying Gas/Electric Bills: No Difficulty Paying for Meds: No Currently Unemployed: No Education: High School Diploma/GED Difficulty w/ Childcare or Family Care: No Living arrangements: with family Gender identity (if verbalized by the patient): Male Sexual Orientation (if Verbalized by the Patient): Straight or Heterosexual Spiritual care concerns: No Meds Home Medications and Allergies Home Medications ?Medication ?Instructions ?Recorded ?Confirmed ?Type bisacodyl 5 mg tablet,delayed 5 mg PO ONCE #4 tabs 03/30/25 04/03/25 Rx release magnesium citrate 296 ml PO DAILY #296 mL 03/30/25 04/03/25 Rx polyethylene glycol 3350 17 gram 238 g PO DAILY #1 ea 03/30/25 04/03/25 Rx oral powder packet Allergies Allergy/AdvReac Type Severity Reaction Status Date / Time acetaminophen AdvReac Intermediate Itching Verified 04/03/25 10:28 seafood AdvReac Mild Nausea and Uncoded 01/24/25 09:35 Vomiting Vital Signs Vital Signs - 24 hr 04/03/25 10:30 Temperature 98.7 F Pulse Rate 62 Respiratory Rate 18 Blood Pressure 128/92 H Pulse Oximetry 100 Oxygen Delivery Room Air Exam Const: General: no acute distress and alert Orientation/consciousness: patient oriented x3 HENMT: Head: normocephalic and atraumatic Ears: hearing grossly normal bilaterally Face/Nose/Sinus: Normal nares present Mouth: Yes Normal oral and palatal mucosa present Eyes: Periorbital: periorbital findings normal Sclera: sclerae normal EOM: EOMs intact bilaterally Neck: Neck: normal visual inspection, no lymphadenopathy and trachea midline Chest: Chest palpation & inspection: normal inspection of the chest Resp: Effort & Inspection: normal respiratory effort Auscultation: clear to auscultation bilaterally Cardio: Jugular venous distension: no JVD Rate: regular rate Rhythm: regular rhythm Heart sounds: S1 normal heart sound present and S2 normal heart sound present Peripheral pulses: Peripheral pulses 2+ throughout GI: Inspection: normal to inspection GI Palp: Yes Soft to palpation, No Tenderness to palpation present (GI), No Guarding due to palpation present (GI) and No Rebound tenderness present Percussion: Yes normal to percussion Auscultation: normal bowel sounds : General: Yes no CVA tenderness Back/Spine/Pelvis: Back: no CVA tenderness Neuro: General: patient oriented x3, no focal motor deficits and CN's II-XI intact bilaterally Cognition (Neuro): normal cognition Speech: normal speech Motor exam (neuro): 5/5 motor strength present throughout Extrem: General: capillary refill normal and no clubbing, cyanosis or edema Assessment and Plan Assessment and plan (1) Diverticulitis of intestine with abscess: Qualifiers: Diverticulitis site: large intestine Diverticulitis bleeding: without bleeding Qualified Code(s): K57.20 - Diverticulitis of large intestine with perforation and abscess without bleeding Code(s): K57.80 - Diverticulitis of intestine, part unspecified, with perforation and abscess without bleeding Status: Acute Assessment and Plan: I have recommended colonoscopy. I have discussed the procedure, risks, benefits, and alternatives. Questions were answered. Patient is agreeable to proceed.
--- OUTSIDE RECORDS SUMMARY | 2025-04-03 11:57 | XMS_ITS | Clinical Summary ---
Author Organization [facility] [employer] Address [address] 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 This disclosure is being madepursuant to the Care Everywhere program and may not contain all information available regarding this patient. Last updated 18.[facility] [employer] Allergies Active Allergy Reactions Criticality Noted Date [...] on file Legal Sex Male 5:13 PM [employer] Gender Identity Not on file Sexual Orientation Not on file Last Filed Vital Signs Vital Sign Reading Time Taken Comments Blood Pressure 115/86 05/31/2024 12:03 PM [employer] Pulse 110 05/31/2024 12:03 PM [employer] Temperature 37.6 C (99.6 F) 05/31/2024 12:03 PM [employer] Respiratory Rate 19 05/31/2024 12:03 PM [employer] Oxygen Saturation 99% 05/31/2024 12:03 PM [employer] Inhaled Oxygen Concentration - - Weight 56.7 kg (125 lb) 05/31/2024 12:03 PM [employer] Height 180.3 cm (5' 11) 05/31/2024 12:03 PM [employer] Body Mass Index 17.43 05/31/2024 12:03 PM [employer] Plan of Treatment Health Maintenance Due Date [...] of 3 - 19+ 3-dose series) 1994 DEPRESSION SCREENING 05/11/2024 COVID-19 VACCINE (1 - 2024-2 6 season) 2025 INFLUENZA VACCINE (#1) 2025 ZOSTER VACCINE (1 [...] complete this topic Insurance Care Teams Machine Hoop Maker Helper Relationship Specialty Start Date End Date Unknown, Provider PCP - General 11/04/17
--- NOTE | 2025-04-03 11:58 | WPDANESPN ---
Anes - Prog Note Post-Op Date/Time: 04/03/25 11:58 Vital Signs: Last Vital Signs Temp 98.7 F 04/03/25 10:30 Pulse 62 04/03/25 10:30 Resp 18 04/03/25 10:30 BP 128/92 H 04/03/25 10:30 Pulse Ox 100 04/03/25 10:30 O2 Del Method Room Air 04/03/25 10:30 Pain Score (VAS): no Patient Feedback: Patient satisfied with anesthetic care.
[2025-04-03 12:10] VITALS: BP 127/83; PULSE 82; RESP 16; O2SAT 98
[2025-04-03 12:20] VITALS: BP 120/76; PULSE 78; RESP 16; O2SAT 96
[2025-04-03 12:30] VITALS: BP 112/84; PULSE 66; RESP 18; O2SAT 99
== END 2025-04-03 12:58 | disposition home or self-care (01) ==
PROVIDERS: PCP Internal Medicine Infectious Disease; Visit Provider Surgery
PROC: 0DJD8ZZ Inspection of Lower Intestinal Tract, Via Natural or Artificial Opening Endoscopic (ICD-10-PCS; CPT 45378; principal; 2025-04-03 11:30)
DX: K57.30 Diverticulosis of large intestine without perforation or abscess without bleeding (principal)
CPT/HCPCS: 45378